=== PATIENT | male | born 1970 | race African-American/Black ===

== ENCOUNTER 2016-11-05 07:34 | Day surgery (SDC) | payer OTHER ==
[~2016-11-05] VITALS: Ht 188 cm; Wt 100.0 kg
[2016-11-05] VITALS (14 sets, daily range): BP systolic 114–133; BP diastolic 72–98; PULSE 59–75; TEMP 36.6; O2SAT 94–100; Ht 188 cm; Wt 100.0 kg
--- NOTE | 2016-11-05 00:08 | History and Physical ---
History & Physical Date Nov 05, 2016. Chief Complaint Poorly controlled asthma History of Present Illness The patient is a 46 year old male with complaints of Past Medical/Surgical History Patient is a 46-year-old male with poorly controlled asthma. He has been having repeat exacerbations almost every month requiring chronic high doses of steroids. At the time of my interview the patient noted continued nighttime awakenings with cough but denies fever, chills, productive sputum or pleurisy. Additional History Hepatic Disease: No Endocrine Disorder: No Kidney Disease: No Hypertension: No Heart Disease: No Bleeding Tendencies: No Infectious Diseases: No Physical Examination Skin: warm/dry, no rash Eyes: normal inspection, EOMI, sclerae normal ENT: normal ENT inspection, pharynx normal Head: normocephalic, atraumatic Neck: supple, no adenopathy, trachea midline Respiratory/Chest: lungs clear, normal breath sounds, no respiratory distress Cardiovascular: regular rate, rhythm, no edema, no murmur Abdomen / GI: normal bowel sounds, non tender Back: normal inspection Extremities: normal inspection, normal range of motion Neurologic/Psych: no motor/sensory deficits, alert, normal reflexes, oriented x 3 ASA Classification: ASA Class II Plan of Treatment Flexible bronchoscopy for evaluation prior to bronchial thermoplasty and bronchial lavage for rule out any chronic atypical infections.
[2016-11-05] MEDS ORDERED: LIDOCAINE HCL 2% LOCAL 50ML VIAL INFIL ONE (07:35)
[2016-11-05] MEDS ORDERED: MIDAZOLAM HCL 5 MG/ML 1 ML VIAL IV ONE ×2 (07:35→10:15)
[2016-11-05] MEDS ORDERED: LIDOCAINE 4% INH SOLN 4 ML BTL ONE (07:35)
[2016-11-05] MEDS ORDERED: FENTANYL CITRATE INJ 50 MCG/1 ML 2 ML VIAL IV ONE ×2 (07:35→10:15)
[2016-11-05] MEDS ORDERED: MONT1TAB3 PO (08:32)
[2016-11-05] MEDS ORDERED: CICL160A INH (08:32)
[2016-11-05] MEDS ORDERED: [UNRECOGNIZED DRUG - CODE] PO (08:32)
[2016-11-05] MEDS ORDERED: DOXY100C76 PO (08:32)
[2016-11-05] MEDS ORDERED: PRED20TA PO (08:32)
[2016-11-05] MEDS ORDERED: ADVIN50/60 INH (08:32)
[2016-11-05] MEDS ORDERED: SPRIN/30 INH (08:32)
[2016-11-05] MEDS ORDERED: CALC500C3 PO (08:32)
[2016-11-05] MEDS ORDERED: ALEN70TA3 PO (08:32)
[2016-11-05] MEDS ORDERED: PANT40TA PO (08:32)
[2016-11-05] MEDS ORDERED: FLUT0.15 INH (08:32)
[2016-11-05] MEDS ORDERED: VNTHFA/IN INH (08:32)
[2016-11-05] MEDS ORDERED: CARB200T PO (08:32)
--- NOTE | 2016-11-05 08:52 | Procedure Note ---
Pre-Mod Sedation Assessment General Date of Moderate Sedation: Nov 05, 2016. Vital Signs: Vital Signs Past 12 Hours Date Time Temp Pulse Resp B/P Pulse Ox O2 Delivery O2 Flow Rate FiO2 11/05/16 08:33 36.6 71 20 116/72 95 Room Air Review Cardiovascular: regular rate, rhythm, no edema, no gallop, no JVD, no murmur, normal peripheral pulses Abdomen: normal bowel sounds, non tender, soft, no organomegaly, no pulsatile mass, normal rectal exam, occult blood negative Lungs: chest non-tender, no respiratory distress, no accessory muscle use, + wheezing Airway Class: II Pre-Sedation Airway Assessment Oral Cavity: WNL Able to Visualize Vocal Cords: Yes Short Thick Neck: No Smoking Status: Never Smoker Mallampati Classification: Class II ASA Classification: Class II Procedure Planning Contraindications-for Mod Sed: None Yes Notes The planned sedation has been discussed with the patient and consent obtained. I have identified the patient, determined the appropriateness of sedation and have assessed the patient immediately prior to the procedure. All medicine(s) and interventions are by my order.
--- NOTE | 2016-11-05 08:52 | History & Physical Bridge Note ---
H&P Re-Evaluation Bridge Note: I have examined the patient, reviewed the History & Physical and in the interval since the performance of the History & Physical I have noted the following changes of clinical significance: No changes noted
[2016-11-05] MEDS ORDERED: NURSING VERBAL MED ORDER ONE ×2 (09:00→10:00)
[2016-11-05] MEDS ORDERED: DEXTROSE 5% 1000ML 1,000 ML IV SCH (09:30)
--- NOTE | 2016-11-05 09:47 | Procedure Note ---
Post-Moderate Sedation Plan General Date of Moderate Sedation Nov 05, 2016. Vital Signs: Vital Signs Past 12 Hours Date Time Temp Pulse Resp B/P Pulse Ox O2 Delivery O2 Flow Rate FiO2 11/05/16 09:25 73 16 123/98 100 Mask 8.0 11/05/16 09:20 61 16 126/92 100 Mask 8.0 11/05/16 09:15 60 16 122/93 100 Mask 8.0 11/05/16 09:10 59 16 127/90 100 Mask 8.0 11/05/16 09:05 60 16 124/83 100 Room Air 11/05/16 08:33 36.6 71 20 116/72 95 Room Air Review - Discharge Plan Post Moderate Sedation Plan: On clinical assessment, the patient appears to have tolerated the conscious sedation without complications. Patient is recovering as anticipated. Patient will continue to be monitored by nursing and may be discharged when conscious sedation discharge criteria are met.
--- NOTE | 2016-11-05 09:52 | Bronchoscopy Procedure Note ---
Bronchoscopy Procedure Note Procedure: Bronchoscopy, conscious sedation, bronchial lavage of the left upper lobe Consent: Obtained through the patient placed into the chart Preprocedural diagnosis: Poorly controlled asthma Postprocedural diagnosis: Poorly controlled asthma, chronic rhinitis, left vocal cord polyp Start time: 04 13 End time: 04 17 Total time: 4 minutes Analgesia: 2% liquid lidocaine: Via nebulizer 4% gel lidocaine: Via right naris 2% liquid lidocaine: Via bronchoscopy Sedation: Versed IV: 3 mg Fentanyl IV: 75 g Procedure: The Olympus video bronchoscope was used for this procedure Right naris/posterior naris/posterior oropharynx: Diffuse erythema with associated diffuse mucous secretions Glottis: Anatomically within normal limits Vocal cords: Proper abduction and abduction, left vocal cord anterior vocal cord polyp Subglottis/trachea/Emily: Anatomically within normal limits, diffuse mucous secretions Right bronchial tree: Right mainstem bronchus: Anatomically within normal limits Right upper lobe: Anatomically within normal limits Bronchus intermedius: Anatomically within normal limits Right middle lobe: Anatomically within normal limits Right lower lobe: 100% obstruction of the takeoff to the right lower lobe with diffuse mucous secretions Findings: All lobes had mucous secretions right lower lobe obstructed all subsegments clear of secretions Left bronchial tree: Left mainstem bronchus: Anatomically within normal limits Left upper lobe: Easy friability with minimal bronchoscopic trauma, also notable reactive cough to bronchoscopic irritation Lingula: Anatomically within normal limits Left lower lobe: Obstructed with mucous secretions Findings: Diffuse mucus secretions in all subsegments with obstruction of the left lower lobe all subsegments clear Bronchial alveolar lavage: 80 cc lavage performed of the left upper lobe with 35 cc return Complications: None Follow-up: Patient is to follow-up in the [place] [facility]. Patient will be sent off for ENT evaluation as well.
--- NOTE | 2016-11-05 09:56 | Discharge Instructions ---
Discharge Instructions Date of Service Nov 05, 2016. Admission Reason for Admission: Poorly controlled Asthma Discharge Discharge Diagnosis / Problem: #1 vocal cord polyp #2 chronic rhinitis #3 left upper lobe erythema Discharge Goals Goal(s): Diagnostic testing Activity Recommendations Activity Limitations: resume your previous activity . Instructions / Follow-Up Instructions / Follow-Up #1 follow-up in the [place] [facility] clinic within next 7-10 days, then repeat visit in the next 6-7 weeks #2 ENT consultation for vocal cord polyp and signs of chronic rhinitis Current Hospital Diet Patient's current hospital diet: Discharge Diet Recommended Diet: Regular Diet Procedures Procedures Performed: Bronchoscopy, bronchial lavage of the left upper lobe, conscious sedation Pending Studies Studies pending at discharge: yes List of pending studies: Fungal, mycobacterial studies pending Medical Emergencies . Who to Call and When: Medical Emergencies: If at any time you feel your situation is an emergency, please call 911 immediately. . Non-Emergent Contact Non-Emergency issues call your: Laundry Operator Wash Room Call Non-Emergent contact if: temperature is above 101.5 Worsening respiratory distress . . "Provider Documentation" section prepared by Nehemias Fitzpatrick. VTE Core Measure Inpt VTE Proph given/why not?: Treatment not indicated
[2016-12-01 12:18] LABS: HERPES SIMPLEX CULT SOURCE OTHER-BAL LUL; HERPES SIMPLEX VIRUS CULT NOT ISOLATED (NOT ISOLATED)
[2017-02-08] MEDS ORDERED: IPRASOL4 INH (14:53)
[2017-02-08] MEDS ORDERED: [UNRECOGNIZED DRUG - CODE] PO (14:53)
[2017-02-08] MEDS ORDERED: INSHRIE (14:53)
[2017-04-04] MEDS ORDERED: FSM70 PO (15:35)
[2017-04-04] MEDS ORDERED: BISM262S7 PO (15:35)
[2017-04-04] MEDS ORDERED: PRED10TA PO (15:35)
[2017-04-04] MEDS ORDERED: CICL160A INH (15:35)
[2017-04-04] MEDS ORDERED: PANT40TA PO (15:35)
[2017-04-04] MEDS ORDERED: MONT1TAB3 PO (15:35)
== END 2016-11-05 11:35 | disposition home or self-care (01) ==
LOC: C.ACU 07:34
PROVIDERS: ATTEND Internal Medicine Critical Care Medicine
DX: J45.909 Unspecified asthma, uncomplicated (principal); J31.0 Chronic rhinitis; J38.1 Polyp of vocal cord and larynx

== ENCOUNTER 2017-02-21 09:12 | Day surgery (SDC) | payer OTHER ==
[2017-02-08 16:02] VITALS: BMI 28.0
[~2017-02-21] VITALS: Ht 188 cm; Wt 100.5 kg
[2017-02-21] VITALS (7 sets, daily range): BP systolic 97–158; BP diastolic 68–89; PULSE 70–100; TEMP 36.4–36.8; O2SAT 91–100; Ht 188 cm; Wt 100.5 kg
[~2017-02-21 09:12] MED LIST: ADVIN50/60 INH; ALEN70TA3 PO; CALC500C3 PO; CARB200T PO; CICL160A INH; FLUT0.15 INH; INSHRIE; IPRASOL4 INH; LACTATED RINGER'S 1000ML 1,000 ML IV SCH; MONT1TAB3 PO; PRED20TA PO; SPRIN/30 INH; TERB2.5T2 PO; VNTHFA/IN INH; [UNRECOGNIZED DRUG - CODE] PO
[2017-02-21] MEDS ORDERED: PRED50TA PO (09:47)
[2017-02-21] MEDS ORDERED: DIPH25CA65 PO (09:49)
[2017-02-21] MEDS ORDERED: DEXAMETHASONE SOD INJ 4 MG/ML VIAL ONE (10:30)
[2017-02-21] MEDS ORDERED: CARBAMAZEPINE 200 MG TAB PO ONE (10:30)
[2017-02-21] MEDS ORDERED: ONDANSETRON INJ 2 MG/ML 2 ML VIAL ONE (10:30)
[2017-02-21] MEDS ORDERED: MIDAZOLAM HCL 1 MG/ML 2ML VIAL ONE (10:30)
[2017-02-21] MEDS ORDERED: ROCURONIUM BROMIDE 10 MG/ML 5 ML VIAL ONE (10:30)
[2017-02-21] MEDS ORDERED: PROPOFOL IV EMULSION 10 MG/ML 20 ML VIAL IV ONE ×2 (10:30→11:36)
[2017-02-21] MEDS ORDERED: NEOSTIGMINE METHYLSULFATE 5 MG/5 ML SYR ONE (10:30)
[2017-02-21] MEDS ORDERED: LIDOCAINE HCL 2% 2 ML VIAL (20MG/ML) ONE (10:30)
[2017-02-21] MEDS ORDERED: GLYCOPYRROLATE INJ 0.2 MG/ML VIAL ONE ×2 (10:30→12:31)
[2017-02-21] MEDS ORDERED: FENTANYL CITRATE INJ 50 MCG/1 ML 2 ML VIAL ONE (10:30)
[2017-02-21] MEDS ORDERED: ALBUTEROL 0.083% NEBU SOLN 3 ML VIAL INH STA (10:31)
[2017-02-21] MEDS ORDERED: FENTANYL CITRATE INJ 50 MCG/1 ML 2 ML VIAL IV PRN (10:45)
[2017-02-21] MEDS ORDERED: LABETALOL HCL IV 5 MG/ML 20ML IV PRN (10:45)
[2017-02-21] MEDS ORDERED: ONDANSETRON INJ 2 MG/ML 2 ML VIAL IV PRN (10:45)
[2017-02-21] MEDS ORDERED: ATROPINE SULFATE 0.1 MG/ML 5ML SYR IV PRN (10:45)
--- NOTE | 2017-02-21 11:14 | History and Physical ---
History & Physical Date Feb 21, 2017. Chief Complaint Chronic persistent asthma History of Present Illness The patient is a 46 year old male with complaints of chronic persistent asthma Patient is a 3-year-old gentleman with severe/chronic persistent asthma who over the last year is undergone an extensive workup: Bronchoscopy, ENT, allergy and radiographic examinations and requires high levels of corticosteroid support for multiple exacerbations. At this time myself the patient and decided to move forward with bronchial thermoplasty to help control his overall signs and symptoms. The patient has been on high-dose steroids of the last 3-4 weeks ranging anywhere from 50-70 mg. He currently continues to have active wheezing but denies dyspnea at rest, fever, chills, productive cough or other signs of active infection. The patient's previous baseline FEV1 is 2.48 and currently/ today his bedside FEV1 is 1.94 which is 78% of his baseline. The patient myself has undergone a full discussion of the bronchoscope thermoplasty protocol , procedure and possible side effects. At this time he would like to move forward. Additional History Hepatic Disease: No Endocrine Disorder: No Kidney Disease: No Hypertension: No Heart Disease: No Bleeding Tendencies: No Infectious Diseases: No Other: Chronic persistent asthma Allergies Coded Allergies: No Known Allergies (Unverified , 02/21/17) Home Medications Scheduled Alendronate/Cholecalciferol (Fosamax+D 70MG/5600 Iu), 1 TABLET PO WK Calcium Carbonate (Tums), 2 TABS PO BID Carbamazepine (Tegretol), 200 MG PO BID Ciclesonide (Alvesco), 1 PUFF INH BID Diphenhydramine Hcl (Benadryl Allergy), 50 CAP PO HS Fluticasone Prop/Salmeterol (Advair Diskus 500/50 60 Dose), 1 PUFFS INH BID Fluticasone Propionate (Nasal) (Flonase Allergy Relief), 2 SPRAY INH BID Insulin Human Regular (Humulin R), UD Ipratropium-Albuterol (Duoneb), 1 TREATMENT INH QID Prednisone (Prednisone), 70 MG PO DAILY Terbutaline Sulfate (Terbutaline Sulfate), 1 TAB PO BID Tiotropium [place] (Spiriva Handihaler), 1 CAP INH QPM Scheduled PRN Albuterol Hfa (Ventolin Hfa), 2 PUFFS INH QID PRN for WHEEZING Bismuth Subsalicylate (Bismatrol), 30 ML PO QID PRN for RN Montelukast Sodium (Singulair), 1 TAB PO DAILY PRN for PRN Physical Examination Skin: warm/dry, no rash Eyes: normal inspection, EOMI, sclerae normal ENT: normal ENT inspection, pharynx normal Head: normocephalic, atraumatic Neck: supple, no adenopathy, trachea midline Respiratory/Chest: + pertinent finding (bilateral expiratory wheezing) Cardiovascular: regular rate, rhythm, no edema, no murmur Abdomen / GI: normal bowel sounds, non tender Back: normal inspection Extremities: normal inspection, normal range of motion Neurologic/Psych: no motor/sensory deficits, alert, normal reflexes, oriented x 3 Diagnosis Chronic persistent asthma ASA Classification: ASA Class III Plan of Treatment Bronchoscopy with associated bronchial thermoplasty
[2017-02-21] MEDS ORDERED: EpHEDrine SULFATE 50MG/5ML SYR ONE (12:31)
--- NOTE | 2017-02-21 12:46 | Bronchoscopy Procedure Note ---
Bronchoscopy Procedure Note Procedure: Bronchoscopy, GETA, bronchus thermoplasty (BT) Consent: Obtained through the patient placed into the chart Pre-procedural diagnosis: Chronic persistent asthma Post-procedural diagnosis: Chronic persistent asthma Analgesia: 2% liquid lidocaine: Via bronchoscopy Sedation: GETA Procedure: The [employer] video bronchoscope was used for this procedure and passed down through the ET tube. ETT: 4 cm above the level of gagandeep Trachea(visualized portion)/Gagandeep: Anatomically within normal limits, diffuse mucous plugs Right bronchial tree: Right mainstem bronchus: Anatomically within normal limits Right upper lobe: Anatomically within normal limits Bronchus intermedius: Anatomically within normal limits Right middle lobe: Anatomically within normal limits Right lower lobe: Anatomically within normal limits Findings: Diffuse mucous plugs Left bronchial tree: Left mainstem bronchus: Anatomically within normal limits Left upper lobe: Anatomically within normal limits Lingula: Anatomically within normal limits Left lower lobe: Anatomically within normal limits Findings: Diffuse mucous plugs Bronchial alveolar lavage: Right lower lobe Bronchial thermoplasty: EBL: The Olympus bronchial thermoplasty system was used for this procedure Right middle lobe BT was performed. Approximately 43 thermoplasty events were performed Please refer to the BT anatomical report Complications: None Follow-up: Patient will move to the PACU for follow-up
[2017-02-21] MEDS ORDERED: LARYING-O-JET KIT (LTA) ONE ×2 (14:06)
--- NOTE | 2017-02-21 14:31 | Anesthesiology Progress Note ---
Anesthesia Post Op Note Date & Time Feb 21, 2017 at 14:31 Vital Signs Vital Signs Past 12 Hours Date Time Temp Pulse Resp B/P (MAP) Pulse Ox O2 Delivery O2 Flow Rate FiO2 02/21/17 14:00 100 20 128/82 100 Nasal Cannula 2 02/21/17 13:30 36.4 78 22 158/89 100 Nasal Cannula 2 02/21/17 13:25 36.6 72 17 118/85 97 Nasal Cannula 2 02/21/17 13:15 74 12 104/84 97 Oxymask 2 02/21/17 13:05 76 14 122/83 98 Oxymask 6 02/21/17 12:55 79 14 117/85 98 Oxymask 10 02/21/17 12:46 36.3 79 16 137/89 100 Oxymask 13 02/21/17 09:30 36.6 75 20 139/70 (93) 91 Room Air Notes Mental Status: alert / awake / arousable, participated in evaluation Pt Amnestic to Procedure: Yes Nausea / Vomiting: adequately controlled Pain: adequately controlled Airway Patency, RR, SpO2: stable & adequate BP & HR: stable & adequate Hydration State: stable & adequate Anesthetic Complications: no major complications apparent
[2017-02-21] MEDS ORDERED: LEVALBUTEROL/IPRATROPIUM NEB INH STA (15:49)
[2017-02-21] MEDS ORDERED: IPRATROPIUM BROMIDE NEB SOLN 0.02% 2.5 ML VIAL INH ONE (16:00)
[2017-02-21] MEDS ORDERED: LEVALBUTEROL 1.25MG/0.5ML NEB INH ONE (16:00)
--- NOTE | 2017-02-21 17:00 | Discharge Instructions ---
Discharge Instructions Date of Service Feb 21, 2017. Admission Reason for Admission: Severe Persistent Asthma Discharge Discharge Diagnosis / Problem: chronic persistent asthma status post bronchial thermoplasty Discharge Goals Goal(s): Improve function Activity Recommendations Activity Limitations: resume your previous activity . Instructions / Follow-Up Instructions / Follow-Up The patient is to follow[facility]up at [facility] within 7-10 days after the procedure. The patient most likely will have fevers and chills as well as some mild pleurisy over the next 2-3 days. Medications #1 prednisone 50 mg 3 days then tapering dose of 5 mg every 4 days. #2 Tylenol 650 mg when necessary fever greater than 101 #3 ibuprofen 600 mg every 8 hours when necessary chest pain Current Hospital Diet Patient's current hospital diet: Discharge Diet Recommended Diet: Regular Diet Procedures Procedures Performed: Flexible Bronchoscopy, Right Lower Lobe Bronchial Lavage, Bronchial Thermoplasty Pending Studies Studies pending at discharge: no Medical Emergencies . Who to Call and When: Medical Emergencies: If at any time you feel your situation is an emergency, please call 911 immediately. . Non-Emergent Contact Non-Emergency issues call your: Set Painter Call Non-Emergent contact if: temperature is above 101.5 . . "Provider Documentation" section prepared by Nehemias Fitzpatrick. . Cook Apprentice Pastry Recommendations Cook Apprentice Pastry Recommendations: Patient should be monitored in the [facility] for the next 48 hours VTE Core Measure Inpt VTE Proph given/why not?: Treatment not indicated
[2017-03-20 15:07] LABS: HERPES SIMPLEX CULT SOURCE OTHER-BAL; HERPES SIMPLEX VIRUS CULT NOT ISOLATED (NOT ISOLATED)
[2017-04-04] MEDS ORDERED: MONT1TAB3 PO (15:35)
[2017-04-04] MEDS ORDERED: CICL160A INH (15:35)
[2017-04-04] MEDS ORDERED: PRED10TA PO (15:35)
[2017-04-04] MEDS ORDERED: BISM262S7 PO (15:35)
[2017-04-04] MEDS ORDERED: PANT40TA PO (15:35)
[2017-04-04] MEDS ORDERED: FSM70 PO (15:35)
== END 2017-02-21 17:11 | disposition home or self-care (01) ==
LOC: C.ACU 09:12
PROVIDERS: ATTEND Internal Medicine Critical Care Medicine
DX: J45.50 Severe persistent asthma, uncomplicated (principal); M06.9 Rheumatoid arthritis, unspecified; K21.9 Gastro-esophageal reflux disease without esophagitis; Z90.89 Acquired absence of other organs; M19.90 Unspecified osteoarthritis, unspecified site; E11.9 Type 2 diabetes mellitus without complications; Z79.4 Long term (current) use of insulin; R56.9 Unspecified convulsions

== ENCOUNTER 2017-03-22 10:16 | Observation (INO) | payer OTHER ==
[2017-02-18 11:22] VITALS: BMI 28.0
[~2017-03-22] VITALS: Ht 188 cm; Wt 96.0 kg
[2017-03-22] VITALS (14 sets, daily range): BP systolic 101–145; BP diastolic 70–78; PULSE 78–116; TEMP 36.5–36.9; O2SAT 87–97; Ht 188 cm; Wt 96.0 kg
[~2017-03-22 10:16] MED LIST changes: +DEXAMETHASONE SOD INJ 4 MG/ML VIAL ONE; +DIPH25CA65 PO; +FENTANYL CITRATE INJ 50 MCG/1 ML 2 ML VIAL ONE; +LIDOCAINE HCL 2% 2 ML VIAL (20MG/ML) ONE; +MIDAZOLAM HCL 1 MG/ML 2ML VIAL ONE; +ONDANSETRON INJ 2 MG/ML 2 ML VIAL ONE; -PRED20TA PO; +PRED50TA PO; +PROPOFOL IV EMULSION 10 MG/ML 20 ML VIAL IV ONE; +ROCURONIUM BROMIDE 10 MG/ML 5 ML VIAL IV ONE
--- NOTE | 2017-03-22 11:00 | History and Physical ---
History & Physical Date Mar 22, 2017. Chief Complaint Chronic persistent asthma History of Present Illness The patient is a 46 year old male with complaints of chronic persistent asthma 46-year-old gentleman with moderately to severely persistent asthma: Patient has a history of moderately to severely persistent asthma on chronic oral steroids. We initiated bronchial thyroplasty therapy 1st bronchoscopy was performed 02/20/2017. The patient had 2-3 days of postoperative fever chills increase cough but currently has returned to his baseline. At this time he denies: Fever, chills, productive cough, pleurisy or classic cardiac chest pain. Patient is back today for the 2nd part of 3 procedures involving bronchial thyroplasty to the left lower lobe. Bronchial Thermo-Plasty to the right lower lobe (02/21/17) Microbiology: Within normal limits Bronchoscopy (11/05/16) [facility] Physician: Shayy Espinla [phone] Active Problems 1. Asthma (moderately to severely persistent) 3. Chronic cough 4. Chronic rhinitis 5. Vocal cord polyp 6. Osteoporosis 7. Seizure disorder Surgical History 1. History of Knee Surgery Family History 1. Family history of lung cancer Social History Never smoker Current Meds 1. CurrentMeds_2_twCiteListControlStart Advair Diskus 500-50 MCG/DOSE Inhalation Aerosol Powder Breath Activated; INHALE 1PUFF DAILY 2. Albuterol Sulfate (2.5 MG/3ML) 0.083% Inhalation Nebulization Solution; 3. [place] Nasal Mist Allergy/Sinus SOLN; 4. Benadryl Allergy 25 MG Oral Tablet; TAKE 50 MG Daily 5. Brethine 2.5 MG TABS 6. Ceftriaxone Sodium 1 GM Injection Solution Reconstituted; USE DIRECTED; 7. Flonase Allergy Relief 50 MCG/ACT Nasal Suspension; USE 2 SPRAYS IN EACH NOSTRIL ONCE DAILY 8. Fosamax 70 MG Oral Tablet; TAKE 1 TABLET ONCE WEEKLY; 9. Lubriderm LOTN 10. Montelukast Sodium 10 MG Oral Tablet; TAKE 1 TABLET DAILY; 11. Mytab Gas 80 MG Oral Tablet Chewable; 12. Pantoprazole Sodium 40 MG Oral Tablet Delayed Release; 13. PredniSONE 50 MG Oral Tablet 14. Spiriva HandiHaler 18 MCG Inhalation Capsule; INHALE CONTENTS OF 1 CAPSULE ONCE DAILy 15. TEGretol 200 MG Oral Tablet; 16. Tylenol 325 MG Oral Tablet; TAKE 1 TO 2 TABLETS EVERY 6 HOURS NEEDED; 17. Ventolin HFA 108 (90 Base) MCG/ACT Inhalation Aerosol Solution; INHALE 1- 2 PUFFS Allergies 1. No Known Drug Allergies Additional History Hepatic Disease: No Endocrine Disorder: No Kidney Disease: No Hypertension: No Heart Disease: No Bleeding Tendencies: No Infectious Diseases: No Allergies Coded Allergies: No Known Allergies (Unverified , 03/22/17) Home Medications Scheduled Calcium Carbonate (Tums), 2 TABS PO BID Carbamazepine (Tegretol), 200 MG PO BID Fluticasone Prop/Salmeterol (Advair Diskus 500/50 60 Dose), 1 PUFFS INH BID Fluticasone Propionate (Nasal) (Flonase Allergy Relief), 2 SPRAY INH BID Insulin Human Regular (Humulin R), UD Ipratropium-Albuterol (Duoneb), 1 TREATMENT INH QID Prednisone (Prednisone), 70 MG PO DAILY Terbutaline Sulfate (Terbutaline Sulfate), 1 TAB PO BID Tiotropium [place] (Spiriva Handihaler), 1 CAP INH QPM Scheduled PRN Albuterol Hfa (Ventolin Hfa), 2 PUFFS INH QID PRN for WHEEZING Montelukast Sodium (Singulair), 1 TAB PO DAILY PRN for PRN Physical Examination Skin: warm/dry, no rash Eyes: normal inspection, EOMI, sclerae normal ENT: normal ENT inspection, pharynx normal Head: normocephalic, atraumatic Neck: supple, no adenopathy, trachea midline Respiratory/Chest: + pertinent finding (bilateral laboratory wheezing) Cardiovascular: regular rate, rhythm, no edema, no murmur Abdomen / GI: normal bowel sounds, non tender Back: normal inspection Extremities: normal inspection, normal range of motion Neurologic/Psych: no motor/sensory deficits, alert, normal reflexes, oriented x 3 Diagnosis Chronic persistent asthma Plan of Treatment Patient here for flexible bronchoscopy with bronchial thermoplasty to the left lower lobe
[2017-03-22] MEDS ORDERED: CISATRACURIUM BESYLATE IV SOLN 2 MG/ML 10 ML VIAL ONE (12:13)
[2017-03-22] MEDS ORDERED: PROPOFOL IV EMULSION 10 MG/ML 20 ML VIAL IV ONE (12:13)
[2017-03-22] MEDS ORDERED: FENTANYL CITRATE INJ 50 MCG/1 ML 2 ML VIAL ONE (12:25)
--- NOTE | 2017-03-22 12:48 | Bronchoscopy Procedure Note ---
Bronchoscopy Procedure Note Procedure: Bronchoscopy, GETA, bronchus thermoplasty (BT), bronchial lavage right lower lobe Consent: Obtained through the patient placed into the chart Pre-procedural diagnosis: Chronic persistent asthma Post-procedural diagnosis: Chronic persistent asthma Sedation: GETA Procedure: The Olympus video bronchoscope was used for this procedure and passed down through the ET tube. ETT: 2 cm above the level of gagandeep Trachea(visualized portion)/Gagandeep: Anatomically within normal limits, diffuse mucous plugs Right bronchial tree: Right mainstem bronchus: Anatomically within normal limits Right upper lobe: Anatomically within normal limits Bronchus intermedius: Anatomically within normal limits Right middle lobe: Anatomically within normal limits Right lower lobe: Anatomically within normal limits Findings: Diffuse mucous plugs Left bronchial tree: Left mainstem bronchus: Anatomically within normal limits Left upper lobe: Anatomically within normal limits Lingula: Anatomically within normal limits Left lower lobe: Anatomically within normal limits Findings: Diffuse mucous plugs Bronchial alveolar lavage: Right lower lobe Bronchial thermoplasty # of excitations: LB10: 14 LB9: 10 LB 7+8: 8-8 LB6: 16 EBL: None Complications: None Follow-up: Patient will move to the PACU for follow-up
[2017-03-22] MEDS ORDERED: ATROPINE SULFATE 0.1 MG/ML 5ML SYR IV PRN (13:30)
[2017-03-22] MEDS ORDERED: EpHEDrine SULFATE INJ 50 MG/ML AMP IV PRN (13:30)
--- NOTE | 2017-03-22 14:01 | Anesthesiology Progress Note ---
Anesthesia Post Op Note Date & Time Mar 22, 2017 at 14:01 Vital Signs Pain Intensity: 0 Vital Signs Past 12 Hours Date Time Temp Pulse Resp B/P (MAP) Pulse Ox O2 Delivery O2 Flow Rate FiO2 03/22/17 13:40 36.2 87 16 111/81 95 Room Air 03/22/17 13:30 84 18 121/85 96 Room Air 03/22/17 13:20 82 12 126/90 100 Oxymask 10 03/22/17 13:10 86 16 125/94 99 Oxymask 10 03/22/17 13:00 36.0 90 16 129/91 97 Oxymask 10 03/22/17 10:33 36.5 18 145/74 (97) 97 Room Air Notes Mental Status: alert / awake / arousable, participated in evaluation Pt Amnestic to Procedure: Yes Nausea / Vomiting: adequately controlled Pain: adequately controlled Airway Patency, RR, SpO2: stable & adequate BP & HR: stable & adequate Hydration State: stable & adequate Anesthetic Complications: no major complications apparent
[2017-03-22] MEDS ORDERED: NURSING VERBAL MED ORDER ONE (14:30)
[2017-03-22] MEDS ORDERED: ALBUTEROL 0.083% NEBU SOLN 3 ML VIAL INH ONE (14:45)
--- NOTE | 2017-03-22 15:25 | [facility] Post Operative Brief Note ---
Immediate Operative Summary Operative Date Mar 22, 2017. Pre-Operative Diagnosis Severe, Persistent Asthma Post-Operative Diagnosis Severe, Persistent Asthma Procedure(s) Performed Flexible Brochoscopy; Bronchial Aveolar Lavage; Bronchial Thermoplasty Surgeon Nanette Header Boss Surgeon(s) Araceli Mendenhall PA-C and Respiratory staff Estimated Blood Loss 0cc Findings No acute findings noted Specimens A: BAL Complication(s) Postprocedural FEV1 1.44 which is only 71% of preprocedural FEV1 at 2.02. To be discharge criteria patient needs to be 80% or greater pre-procedural FEV1. Due to this the patient will require admission and monitoring at least for the next 24 possibly 48 hours.
[2017-03-22] MEDS ORDERED: ONDANSETRON INJ 2 MG/ML 2 ML VIAL IV PRN (16:00)
[2017-03-22] MEDS ORDERED: MONTELUKAST SOD 10 MG TAB PO PRN (16:00)
[2017-03-22] MEDS ORDERED: ALBUTEROL HFA 8 GM INHALER INH PRN (16:00)
[2017-03-22] MEDS ORDERED: ALUMINUM/MAGNESIUM/SIMETH (MAALOX MAX) 30 ML UDC PO PRN (16:00)
[2017-03-22] MEDS ORDERED: POLYETHYLENE (MIRALAX) 17 GM PACK PO PRN (16:00)
[2017-03-22] MEDS ORDERED: MAGNESIUM HYDROXIDE SUSP 30 ML UDC PO PRN (16:00)
[2017-03-22] MEDS ORDERED: ACETAMINOPHEN 325 MG TAB PO PRN (16:00)
--- NOTE | 2017-03-22 17:10 | Pulmonology Progress Note ---
Pulmonary Progress Note Date of Service Mar 22, 2017. Attending Dr. Fitzpatrick Subjective Patient notably having some mild chest discomfort and increased work of breathing Objective Patient mildly tachypnea but able to complete full sentences showing no signs of any respiratory insufficiency Vital signs: Currently stable nasal cannula Respiratory: Moderate expiratory wheezing with some rhonchi appreciated in the lower lobes Cardiac: S1 and S2 distant heart sounds but regular rate and rhythm Abdomen: Soft nontender Assessment & Plan 46-year-old male status post bronchial thermoplasty with mild asthma exacerbation: #1 Asthma: Patient has a long history of chronic persistent/severe asthma on high doses of oral prednisone. Earlier today he underwent bronchoscopy 2 over total of 3 for bronchoscopy thermoplasty were we ablated the left lower lobe. Postoperatively he was noted to have an FEV1 of 1.4 for which was only 71% of his preprocedural FEV1. As the patient was feeling ill and he did not meet the standard 80% or greater postprocedural FEV1 spirometry I've decided to admit him overnight with to help with the hospitalist team for evaluation. If the patient is doing well on the morning and he does meet his post spirometry goal of greater then or equal to 80% of pre-procedural levels the patient can most likely be discharged. At this time we'll obtain postprocedural chest x-ray for further evaluation. Data Medications: Current Inpatient Medications Medications (Trade) Dose Ordered Sig/Elza Route Start Time Stop Time Status Last Admin Dose Admin Lactated Ringer's 1,000 ml @ 15 mls/hr Q24H IV 03/22/17 06:00 03/23/17 05:59 Ephedrine Sulfate (EpHEDrine SULFATE INJ) 5 mg Q5M PRN IV 03/22/17 13:30 03/22/17 18:30 Atropine Sulfate (Atropine Sulfate 0.1MG/Ml Inj) 0.5 mg Q1M PRN IV 03/22/17 13:30 03/22/17 18:30 Enoxaparin Sodium (Lovenox Inj) 40 mg Q24H SQ 03/22/17 16:00 04/21/17 15:59 UNV Acetaminophen (Tylenol Tab) 650 mg Q4H PRN PO 03/22/17 16:00 04/21/17 15:59 UNV Al Hydrox/Mg Hydrox/Simethicone (Maalox Max Susp) 15 ml Q4H PRN PO 03/22/17 16:00 04/21/17 15:59 UNV Magnesium Hydroxide (Milk Of Magnesia Susp) 30 ml Q6H PRN PO 03/22/17 16:00 04/21/17 15:59 UNV Polyethylene (Miralax Powder Packet) 17 gm DAILY PRN PO 03/22/17 16:00 04/21/17 15:59 UNV Ondansetron HCl (Zofran Inj) 4 mg Q6H PRN IV 03/22/17 16:00 04/21/17 15:59 UNV Albuterol (Ventolin Hfa Inhaler) 2 puffs QID PRN INH 03/22/17 16:00 04/21/17 15:59 UNV Calcium Carbonate (Tums Chew Tab) 1,000 mg BID PO 03/22/17 21:00 04/21/17 20:59 UNV Carbamazepine (Tegretol Tab) 200 mg BID PO 03/22/17 21:00 04/21/17 20:59 UNV Salmeterol Xinafoate/ Fluticasone (Advair Diskus 500/50 Inh) 1 puff BID INH 03/22/17 21:00 04/21/17 20:59 UNV Fluticasone Propionate (Flonase Nasal [place]) 2 sprays BID NA 03/22/17 21:00 04/21/17 20:59 UNV Insulin Human Regular (novoLIN-R) ACHS SQ 03/22/17 16:00 04/21/17 15:59 UNV Albuterol/ Ipratropium (Duoneb) 3 ml QID INH 03/22/17 17:00 04/21/17 16:59 UNV Montelukast Sodium (Singulair Tab) 10 mg DAILY PRN PO 03/22/17 16:00 04/21/17 15:59 UNV Prednisone (PredniSONE TAB) 70 mg DAILY PO 03/23/17 09:00 04/22/17 08:59 UNV Tiotropium [place] (Spiriva Handihaler Inhaler) 30 puff QPM INH 03/22/17 21:00 04/21/17 20:59 UNV Non-Formulary Medication (Terbutaline Sulfate ) 1 tab BID PO 03/22/17 21:00 04/21/17 20:59 UNV I & O: 24-Hour Column 03/23/17 08:00 Intake Total 1450 ml Output Total 550 ml Balance 900 ml Vital Signs: Date Time Temp Pulse Resp B/P (MAP) Pulse Ox O2 Delivery O2 Flow Rate FiO2 03/22/17 14:51 90 20 101/77 94 Room Air 03/22/17 14:21 100 18 92 Room Air 03/22/17 14:20 92 20 120/78 93 Room Air 03/22/17 13:50 36.7 78 20 114/78 95 Room Air 03/22/17 13:40 36.2 87 16 111/81 95 Room Air 03/22/17 13:30 84 18 121/85 96 Room Air 03/22/17 13:20 82 12 126/90 100 Oxymask 10 03/22/17 13:10 86 16 125/94 99 Oxymask 10 03/22/17 13:00 36.0 90 16 129/91 97 Oxymask 10 03/22/17 10:33 36.5 18 145/74 (97) 97 Room Air Laboratory Results: Last 24 Hours Test 03/22/17 10:32 03/22/17 13:05 03/22/17 16:04 Bedside Glucose 94 mg/dl 123 mg/dl 169 mg/dl
[2017-03-22] MEDS ORDERED: GLUCOSE 40% GEL 15 GM TUBE PO PRN (17:45)
[2017-03-22] MEDS ORDERED: DEXTROSE 50% 50 ML SYR IV PRN (17:45)
[2017-03-22] MEDS ORDERED: GLUCOSE 10 TABS/TUBE PO PRN (17:45)
[2017-03-22] MEDS ORDERED: GLUCAGON FOR INJ 1 MG VIAL SQ PRN (17:45)
--- NOTE | 2017-03-22 17:47 | DIAGNOSTIC IMAGING REPORT ---
CHEST ONE VIEW PORTABLE CLINICAL HISTORY: 46 years-old Male presenting with evaluation of asthma exacerbation, status post bronchial thermoplasty. TECHNIQUE: Portable upright AP view of the chest was obtained. COMPARISON: None. FINDINGS: Cardiomediastinal silhouette normal. Bandlike opacities in the lung bases, right greater than left. No pleural effusion or pneumothorax. Osseous structures normal. Upper abdomen normal. IMPRESSION: 1. Bibasilar bandlike opacities likely atelectasis. Electronically signed by: Bryce Torres M.D. 03/22/2017 5:46 PM Dictated Date/Time: 03/22/2017 5:45 PM
[2017-03-22] MEDS ORDERED: IV FLUIDS COMPLETED PRN (18:00)
[2017-03-22] MEDS: INSULIN HUMAN REGULAR SQ SCH ×2 (18:34→21:32)
[2017-03-22 19:03] LABS: PROTHROMBIN TIME (PATIENT) 10.6 SECONDS (9.0-12.0)
--- NOTE | 2017-03-22 19:12 | History and Physical ---
History & Physical Date of Service Mar 22, 2017. History & Physical obs #[id number]
--- NOTE | 2017-03-22 19:26 | HISTORY & PHYSICAL EXAMINATION ---
DATE OF ADMISSION: 03/22/2017 CHIEF COMPLAINT: Wheezing and shortness of breath. HISTORY OF PRESENT ILLNESS: The patient is a very pleasant 46-year-old male who is status post bronchial thermoplasty. Unfortunately he did not meet criteria for discharge right afterwards, his FEV1 being too low and so Dr. Fitzpatrick called for us to assist in admitting and ongoing observation and management. He notes feeling tight in his chest and wheezy. He has a little bit of a cough, no fevers, chills, or sweats. He did note after his last bronchial thermoplasty he did have a degree of fever. REVIEW OF SYSTEMS: Otherwise negative, except for as above. PAST MEDICAL HISTORY: Moderate to severe persistent asthma, chronic cough, chronic rhinitis, vocal cord polyp, osteoporosis, and seizure disorder. HOME MEDICATIONS: Advair 500/50 one puff daily, albuterol p.r.n. shortness of breath or wheeze, Benadryl 25 mg to 50 mg daily, Brethine 2.5 mg I believe b.i.d. He has been on ceftriaxone, Flonase, Fosamax, Lubriderm, montelukast, Gas-X, Protonix, prednisone, Spiriva, Tegretol, Tylenol and Ventolin p.r.n. ALLERGIES: No known drug allergies. FAMILY HISTORY: Includes lung cancer. PAST SURGICAL HISTORY: Includes a knee surgery. SOCIAL HISTORY: He is currently incarcerated. He has never been a smoker. PHYSICAL EXAMINATION: VITAL SIGNS: Temperature 36.8, pulse 92, respiratory rate 18, blood pressure 120/72, 96% on room air. GENERAL: He is awake, alert, oriented x3, pleasant, in no acute distress. HEENT: Normocephalic, atraumatic. Mucous membranes are moist. CARDIOVASCULAR: Regular, slightly distant. No rubs, murmurs, or gallops. LUNGS: diffuse wheeze bilaterally. no rales, scattered rhonchi. no accessory muscle use and no tachypnea. ABDOMEN: Soft, nondistended, nontender, no masses or organomegaly. EXTREMITIES: Without cyanosis, clubbing or edema. No calf tenderness. SKIN: Shows no rashes, no pallor or icterus. NEUROLOGIC: Shows cranial nerves II-XII to be grossly intact. Gross motor and sensory are intact. Chest x-ray shows bibasilar band-like opacities, likely atelectasis. His PT is 10.6. His glucose is 145. ASSESSMENT AND PLAN: 1. Wheezing/asthma. He will be admitted. Dr. Fitzpatrick will be consulted for the appropriate management post-thermoplasty. Will also utilize DuoNebs q.i.d. and supportive care. 2. Seizure disorder. Continue his anticonvulsants. 3. Deep venous thrombosis prophylaxis, Lovenox. 4. Osteoporosis. Continue home meds as possible. ITZ
[2017-03-22] MEDS: ALBUT/IPRATROP 3MG/0.5MG NEB 3 ML VIAL INH SCH ×2 (19:37→20:00)
[2017-03-22] MEDS: TRAMADOL HCL 50 MG TAB PO PRN (20:52)
[2017-03-22] MEDS: FLUTICASONE/SALMETEROL (ADVAIR) 500/50 INH 14 PUFF INH SCH (20:58)
[2017-03-22] MEDS: FLUTICASONE PROPIONATE NA SPR 16 GM BTL SCH (20:58)
[2017-03-22] MEDS ORDERED: TIOTROPIUM BROMIDE 5 PUFF/90 MCG INH INH SCH (21:00)
[2017-03-22] MEDS: CALCIUM CARBONATE 500 MG CHEWABLE PO SCH (21:00)
[2017-03-22] MEDS: CARBAMAZEPINE 200 MG TAB PO SCH (21:00)
[2017-03-22] MEDS: TERBUTALINE SULFATE 5 MG TAB PO SCH (21:01)
[2017-03-22] MEDS: ENOXAPARIN 40 MG/0.4 ML SYR SQ SCH (21:27)
[2017-03-22] MEDS ORDERED: TIOTROPIUM BROMIDE 5 PUFF/90 MCG INH INH STA (21:28)
[2017-03-22] MEDS ORDERED: KETOROLAC TROMETHAMINE 15 MG/ML VIAL IV PRN (23:00)
[2017-03-23] VITALS (10 sets, daily range): BP systolic 117–130; BP diastolic 64–90; PULSE 80–93; TEMP 36.6–36.9; O2SAT 90–97
[2017-03-23] MEDS: TRAMADOL HCL 50 MG TAB PO PRN ×5 (01:20→23:42)
[2017-03-23] MEDS: ALBUT/IPRATROP 3MG/0.5MG NEB 3 ML VIAL INH SCH ×6 (01:29→20:01)
[2017-03-23] MEDS: CARBAMAZEPINE 200 MG TAB PO SCH ×2 (09:05→21:25)
[2017-03-23] MEDS: FLUTICASONE PROPIONATE NA SPR 16 GM BTL SCH ×2 (09:06→21:24)
[2017-03-23] MEDS: CALCIUM CARBONATE 500 MG CHEWABLE PO SCH ×2 (09:06→21:28)
[2017-03-23] MEDS: TERBUTALINE SULFATE 5 MG TAB PO SCH ×2 (09:06→21:24)
[2017-03-23] MEDS: FLUTICASONE/SALMETEROL (ADVAIR) 500/50 INH 14 PUFF INH SCH ×2 (09:06→21:19)
[2017-03-23] MEDS: INSULIN HUMAN REGULAR SQ SCH ×4 (09:16→21:18)
--- NOTE | 2017-03-23 10:44 | Pulmonology Progress Note ---
Pulmonary Progress Note Date of Service Mar 23, 2017. Attending Dr. Fitzpatrick Subjective Patient notes dramatic improvement in his respiratory status but continues to have some mild chest congestion. Objective The patient is sitting up in bed and moving around easily with no signs of respiratory insufficiency. He notes some mild chest congestion Vital signs: Stable on room air Respiratory: Mild End-expiratory wheezing Cardiac: S1 and S2 distant heart sounds but regular rate and rhythm Abdomen: Soft nontender preprocedural FEV1: 2.02 L Postprocedural FEV1: 1.44 L (71%) Today's FEV1: 1.62 L (80%) Assessment & Plan 46-year-old male status post bronchial thermoplasty with mild asthma exacerbation: #1 Bronchial Thermoplasty: Patient is doing well post bronchial thermoplasty today and is responded to the treatment last 24 hours. His FEV1 performed today at 1.62 L is 80% preprocedural numbers. The patient is responded well he can be discharged. The patient will return in 3 weeks for the final bronchial thermoplasty of bilateral upper lobes #2 Asthma: This time the patient continue on his current inhaler regimen but will also continue on prednisone 70 mg 1 week and then titrate down to 60 mg over than following week. The patient will then be seen in the pulmonary clinic and we'll discuss further titration most likely to 50 mg the following week. #3 Contact: The patient is to be transferred to the [facility]. I have spoken to the nurse Calista at the facility and informed her of the plan. [facility]: [phone] Intermediate Physician: Shayy Espinal [phone]. Data Medications: Current Inpatient Medications Medications (Trade) Dose Ordered Sig/Elza Route Start Time Stop Time Status Last Admin Dose Admin Enoxaparin Sodium (Lovenox Inj) 40 mg HS SQ 03/22/17 21:00 04/21/17 20:59 03/22/17 21:27 40 MG Acetaminophen (Tylenol Tab) 650 mg Q4H PRN PO 03/22/17 16:00 04/21/17 15:59 03/22/17 18:12 650 MG Al Hydrox/Mg Hydrox/Simethicone (Maalox Max Susp) 15 ml Q4H PRN PO 03/22/17 16:00 04/21/17 15:59 Magnesium Hydroxide (Milk Of Magnesia Susp) 30 ml Q6H PRN PO 03/22/17 16:00 04/21/17 15:59 Polyethylene (Miralax Powder Packet) 17 gm DAILY PRN PO 03/22/17 16:00 04/21/17 15:59 Ondansetron HCl (Zofran Inj) 4 mg Q6H PRN IV 03/22/17 16:00 04/21/17 15:59 Albuterol (Ventolin Hfa Inhaler) 2 puffs QID PRN INH 03/22/17 16:00 04/21/17 15:59 Calcium Carbonate (Tums Chew Tab) 1,000 mg BID PO 03/22/17 21:00 04/21/17 20:59 03/23/17 09:06 1,000 MG Carbamazepine (Tegretol Tab) 200 mg BID PO 03/22/17 21:00 04/21/17 20:59 03/23/17 09:05 200 MG Salmeterol Xinafoate/ Fluticasone (Advair Diskus 500/50 Inh) 1 puff BID INH 03/22/17 21:00 04/21/17 20:59 03/23/17 09:06 1 PUFF Fluticasone Propionate (Flonase Nasal [place]) 2 sprays BID NA 03/22/17 21:00 04/21/17 20:59 03/23/17 09:06 2 SPRAYS Insulin Human Regular (novoLIN-R) ACHS SQ 03/22/17 18:00 04/21/17 17:59 03/23/17 09:16 1 UNITS Montelukast Sodium (Singulair Tab) 10 mg PM PRN PO 03/22/17 16:00 04/21/17 15:59 Prednisone (PredniSONE TAB) 50 mg DAILY PO 03/23/17 09:00 04/22/17 08:59 03/23/17 09:07 50 MG Terbutaline Sulfate (Brethine Tab) 2.5 mg BID PO 03/22/17 21:00 04/21/17 20:59 03/23/17 09:06 2.5 MG Glucose (Glucose 40% Gel) 15-30 GRAMS 15 GRAMS... UD PRN PO 8/25/17 17:45 04/21/17 17:44 Glucose (Glucose Chew Tab) 4-8 Tablets 4 Tabl... UD PRN PO 03/22/17 17:45 04/21/17 17:44 Dextrose (Dextrose 50% 50ML Syringe) 25-50ML OF 50% DW IV FOR... UD PRN IV 03/22/17 17:45 04/21/17 17:44 Glucagon (Glucagon Inj) 1 mg UD PRN SQ 03/22/17 17:45 04/21/17 17:44 Miscellaneous (Iv Fluids Completed) 1 ea PRN PRN N/A 03/22/17 18:00 03/22/18 17:59 Tramadol HCl (Ultram Tab) 50 mg Q4H PRN PO 03/22/17 20:30 04/21/17 20:29 03/23/17 01:20 50 MG Tiotropium [place] (Spiriva Handihaler Inhaler) 1 puff QPM INH 03/23/17 21:00 04/21/17 20:59 Albuterol/ Ipratropium (Duoneb) 3 ml QIDR INH 03/23/17 08:00 04/22/17 07:59 03/23/17 07:40 3 ML Vital Signs: Date Time Temp Pulse Resp B/P (MAP) Pulse Ox O2 Delivery O2 Flow Rate FiO2 03/23/17 08:02 36.8 93 21 121/76 (91) 96 Room Air 03/23/17 08:00 Room Air 03/23/17 07:41 92 18 96 Room Air 03/23/17 05:16 83 18 92 Room Air 03/23/17 04:06 36.9 92 18 117/64 (81) 92 Room Air 03/23/17 01:30 89 18 90 Room Air 03/23/17 00:00 Room Air 03/22/17 23:23 36.9 98 17 111/70 (84) 94 Room Air 03/22/17 23:23 36.9 98 17 111/70 (84) 94 Room Air 03/22/17 19:52 36.8 108 18 111/75 (87) 87 Room Air 03/22/17 19:42 96 18 95 Room Air 03/22/17 18:48 36.8 89 20 121/77 (92) 93 Room Air 03/22/17 17:40 36.9 82 20 122/78 (93) 93 Room Air 03/22/17 17:15 Room Air 03/22/17 17:15 95 Room Air 03/22/17 17:05 36.8 79 20 114/78 (90) 95 Room Air 03/22/17 16:05 36.8 92 18 120/72 96 Room Air 03/22/17 14:51 90 20 101/77 94 Room Air 03/22/17 14:21 100 18 92 Room Air 03/22/17 14:20 92 20 120/78 93 Room Air 03/22/17 13:50 36.7 78 20 114/78 95 Room Air 03/22/17 13:40 36.2 87 16 111/81 95 Room Air 03/22/17 13:30 84 18 121/85 96 Room Air 03/22/17 13:20 82 12 126/90 100 Oxymask 10 03/22/17 13:10 86 16 125/94 99 Oxymask 10 03/22/17 13:00 36.0 90 16 129/91 97 Oxymask 10 03/22/17 10:33 36.5 18 145/74 (97) 97 Room Air Laboratory Results: Last 24 Hours Test 03/22/17 13:05 03/22/17 16:04 03/22/17 17:55 03/22/17 18:28 Bedside Glucose 123 mg/dl 169 mg/dl 145 mg/dl Prothrombin Time 10.6 SECONDS Prothromb Time International Ratio 1.0 Test 03/22/17 20:41 Bedside Glucose 80 mg/dl
[2017-03-23] MEDS ORDERED: TIOTROPIUM BROMIDE 5 PUFF/90 MCG INH INH SCH (21:00)
[2017-03-23] MEDS: ENOXAPARIN 40 MG/0.4 ML SYR SQ SCH (21:19)
[2017-03-24 00:02] VITALS: PULSE 85; O2SAT 91
--- NOTE | 2017-03-24 01:15 | Hospitalist Progress Note ---
Hospitalist Progress Note Date of Service Mar 24, 2017. Subjective patient with no complains still wheezing Objective Vital Signs Date Time Temp Pulse Resp B/P (MAP) Pulse Ox O2 Delivery O2 Flow Rate FiO2 03/24/17 00:02 85 18 91 Room Air 03/23/17 23:05 36.6 88 18 130/90 (103) 93 Room Air 03/23/17 20:02 80 18 93 Room Air 03/23/17 16:20 Room Air 03/23/17 15:16 87 18 95 Room Air 03/23/17 14:51 36.7 86 16 127/74 (91) 92 Room Air 03/23/17 11:31 90 18 97 Room Air 03/23/17 08:02 36.8 93 21 121/76 (91) 96 Room Air 03/23/17 08:00 Room Air 03/23/17 07:41 92 18 96 Room Air 03/23/17 05:16 83 18 92 Room Air 03/23/17 04:06 36.9 92 18 117/64 (81) 92 Room Air 03/23/17 01:30 89 18 90 Room Air Physical Exam General Appearance: no apparent distress Eyes: normal inspection ENT: hearing grossly normal Neck: supple Respiratory/Chest: chest non-tender, no respiratory distress Cardiovascular: regular rate, rhythm Abdomen: normal bowel sounds Extremities: non-tender Laboratory Results Last 24 Hours Test 03/23/17 09:04 03/23/17 12:37 03/23/17 20:49 Bedside Glucose 111 mg/dl 157 mg/dl 154 mg/dl Assessment and Plan 1. Wheezing/asthma. He will be admitted. Dr. Fitzpatrick consulted for the appropriate management post-thermoplasty. Will also utilize DuoNebs q.i.d. and supportive care. 2. Seizure disorder. Continue his anticonvulsants. 3. Deep venous thrombosis prophylaxis, Lovenox. 4. Osteoporosis. Continue home meds as possible Discharge planning: other
[2017-03-24] MEDS: ALBUT/IPRATROP 3MG/0.5MG NEB 3 ML VIAL INH SCH ×3 (04:57→11:30)
[2017-03-24 04:58] VITALS: PULSE 78; O2SAT 91
[2017-03-24 07:39] VITALS: PULSE 80; O2SAT 93
[2017-03-24] MEDS: FLUTICASONE PROPIONATE NA SPR 16 GM BTL SCH (09:07)
[2017-03-24] MEDS: FLUTICASONE/SALMETEROL (ADVAIR) 500/50 INH 14 PUFF INH SCH (09:07)
[2017-03-24] MEDS: TERBUTALINE SULFATE 5 MG TAB PO SCH (09:08)
[2017-03-24] MEDS: CARBAMAZEPINE 200 MG TAB PO SCH (09:08)
[2017-03-24] MEDS: INSULIN HUMAN REGULAR SQ SCH ×2 (09:19→12:47)
[2017-03-24] MEDS: TRAMADOL HCL 50 MG TAB PO PRN (09:20)
[2017-03-24] MEDS: CALCIUM CARBONATE 500 MG CHEWABLE PO SCH (09:58)
[2017-03-24] MEDS ORDERED: LEVO500T19 PO (11:01)
[2017-03-24] MEDS ORDERED: PRD50 PO (11:01)
[2017-03-24] MEDS ORDERED: INSPMPRG SQ (11:01)
--- NOTE | 2017-03-24 11:06 | Pulmonology Progress Note ---
Pulmonary Progress Note Date of Service Mar 24, 2017. Attending Dr. Fitzpatrick Subjective Patient notes continued dyspnea with exertion but also notes some mild yellow productive sputum over the last 24 hours. Objective The patient is sitting up in bed and moving around easily with no signs of respiratory insufficiency. He notes some mild chest congestion I/O: +895cc RR: 18 SaO2: 91-93% FiO2: RA HR: 78-85 RESP: Mild expiratory wheezing bilaterally CARD: S1-S2 regular rate and rhythm ABD: Positive bowel sounds soft nontender EXT: No clubbing cyanosis or edema Abdomen: Soft nontender preprocedural FEV1: 2.02 L Postprocedural FEV1: 1.44 L (71%) Today's FEV1: 1.62 L (80%) Assessment & Plan 46-year-old male status post bronchial thermoplasty with mild asthma exacerbation: #1 Bronchial Thermoplasty: Patient is doing well post bronchial thermoplasty today and is responded to the treatment last 24 hours. His FEV1 performed today at 1.62 L is 80% preprocedural numbers. The patient is responded well he can be discharged. The patient will return in 3 weeks for the final bronchial thermoplasty of bilateral upper lobes #2 Asthma: This time the patient continue on his current inhaler regimen but will also continue on prednisone 70 mg 1 week and then titrate down to 60 mg over than following week. The patient will then be seen in the pulmonary clinic and we'll discuss further titration most likely to 50 mg the following week. #3: ID: Patient is having some productive sputum last 24 hours but fevers via monitoring is noted. As post bronchial thermal inflammation/pneumonias are noted we'll start the patient on Levaquin 500 mg daily for 5 day window. I discussed this with Dr. Abdul the hospitalist physician. #3 Contact: The patient is to be transferred to the [facility]. I have spoken to the nurse Calista at the facility and informed her of the plan. [facility]: x [phone] Retirement Physician: Shayy Espinal [phone]. Data Medications: Current Inpatient Medications Medications (Trade) Dose Ordered Sig/Elza Route Start Time Stop Time Status Last Admin Dose Admin Enoxaparin Sodium (Lovenox Inj) 40 mg HS SQ 03/22/17 21:00 04/21/17 20:59 03/23/17 21:19 40 MG Acetaminophen (Tylenol Tab) 650 mg Q4H PRN PO 03/22/17 16:00 04/21/17 15:59 03/22/17 18:12 650 MG Al Hydrox/Mg Hydrox/Simethicone (Maalox Max Susp) 15 ml Q4H PRN PO 03/22/17 16:00 04/21/17 15:59 Magnesium Hydroxide (Milk Of Magnesia Susp) 30 ml Q6H PRN PO 03/22/17 16:00 04/21/17 15:59 Polyethylene (Miralax Powder Packet) 17 gm DAILY PRN PO 03/22/17 16:00 04/21/17 15:59 Ondansetron HCl (Zofran Inj) 4 mg Q6H PRN IV 03/22/17 16:00 04/21/17 15:59 Albuterol (Ventolin Hfa Inhaler) 2 puffs QID PRN INH 03/22/17 16:00 04/21/17 15:59 Calcium Carbonate (Tums Chew Tab) 1,000 mg BID PO 03/22/17 21:00 04/21/17 20:59 03/24/17 09:58 1,000 MG Carbamazepine (Tegretol Tab) 200 mg BID PO 03/22/17 21:00 04/21/17 20:59 03/24/17 09:08 200 MG Salmeterol Xinafoate/ Fluticasone (Advair Diskus 500/50 Inh) 1 puff BID INH 03/22/17 21:00 04/21/17 20:59 03/24/17 09:07 1 PUFF Fluticasone Propionate (Flonase Nasal [place]) 2 sprays BID NA 03/22/17 21:00 04/21/17 20:59 03/24/17 09:07 2 SPRAYS Insulin Human Regular (novoLIN-R) ACHS SQ 03/22/17 18:00 04/21/17 17:59 03/24/17 09:19 4 UNITS Montelukast Sodium (Singulair Tab) 10 mg PM PRN PO 03/22/17 16:00 04/21/17 15:59 Prednisone (PredniSONE TAB) 50 mg DAILY PO 03/23/17 09:00 04/22/17 08:59 03/24/17 09:08 50 MG Terbutaline Sulfate (Brethine Tab) 2.5 mg BID PO 03/22/17 21:00 04/21/17 20:59 03/24/17 09:08 2.5 MG Glucose (Glucose 40% Gel) 15-30 GRAMS 15 GRAMS... UD PRN PO 03/22/17 17:45 04/21/17 17:44 Glucose (Glucose Chew Tab) 4-8 Tablets 4 Tabl... UD PRN PO 03/22/17 17:45 04/21/17 17:44 Dextrose (Dextrose 50% 50ML Syringe) 25-50ML OF 50% DW IV FOR... UD PRN IV 03/22/17 17:45 04/21/17 17:44 Glucagon (Glucagon Inj) 1 mg UD PRN SQ 03/22/17 17:45 04/21/17 17:44 Miscellaneous (Iv Fluids Completed) 1 ea PRN PRN N/A 03/22/17 18:00 03/22/18 17:59 Tramadol HCl (Ultram Tab) 50 mg Q4H PRN PO 03/22/17 20:30 04/21/17 20:29 03/24/17 09:20 50 MG Tiotropium [place] (Spiriva Handihaler Inhaler) 1 puff QPM INH 03/23/17 21:00 04/21/17 20:59 03/23/17 21:20 1 PUFF Albuterol/ Ipratropium (Duoneb) 3 ml QIDR INH 03/23/17 08:00 04/22/17 07:59 03/24/17 07:38 3 ML Vital Signs: Date Time Temp Pulse Resp B/P (MAP) Pulse Ox O2 Delivery O2 Flow Rate FiO2 03/24/17 07:45 Room Air 03/24/17 07:39 80 18 93 Room Air 03/24/17 04:58 78 18 91 Room Air 03/24/17 00:02 85 18 91 Room Air 03/23/17 23:50 Room Air 03/23/17 23:05 36.6 88 18 130/90 (103) 93 Room Air 03/23/17 20:02 80 18 93 Room Air 03/23/17 16:20 Room Air 03/23/17 15:16 87 18 95 Room Air 03/23/17 14:51 36.7 86 16 127/74 (91) 92 Room Air 03/23/17 11:31 90 18 97 Room Air Laboratory Results: Last 24 Hours Test 03/23/17 12:37 03/23/17 20:49 03/24/17 08:22 Bedside Glucose 157 mg/dl 154 mg/dl 108 mg/dl
--- NOTE | 2017-03-24 11:11 | Discharge Instructions ---
Discharge Instructions Date of Service Mar 24, 2017. Admission Reason for Admission: Asthma Discharge Discharge Diagnosis / Problem: Asthma Discharge Goals Goal(s): Improve function Activity Recommendations Activity Limitations: resume your previous activity . Instructions / Follow-Up Instructions / Follow-Up As directed with Pulmonary Current Hospital Diet Patient's current hospital diet: Diabetes Type 2 Diet Discharge Diet Recommended Diet: Diabetes Type 1 Diet Procedures Procedures Performed: Flexible Brochoscopy; Bronchial Aveolar Lavage; Bronchial Thermoplasty Pending Studies Studies pending at discharge: no Medical Emergencies . Who to Call and When: Medical Emergencies: If at any time you feel your situation is an emergency, please call 911 immediately. . Non-Emergent Contact Non-Emergency issues call your: Primary Care Provider . Past History Medical & Surgical History: (1) Asthma . "Provider Documentation" section prepared by Deni Abdul. . VTE Core Measure Inpt VTE Proph given/why not?: Enoxaparin (Lovenox)SQ
[2017-03-24 11:16] VITALS: BP 130/90; TEMP 36.6; O2SAT 93
[2017-03-24 11:32] VITALS: PULSE 76; O2SAT 94
--- NOTE | 2017-03-24 21:46 | Discharge Summary ---
Discharge Summary Date of Service Mar 24, 2017. Discharge Summary Admission Date: Mar 22, 2017 at 10:45 Discharge Date: Mar 24, 2017 Discharge Disposition: Acute care facility (patient was discharged to [facility]) Principal Diagnosis: persistent asthma Problems/Secondary Diagnoses: Chronic persistent asthma Procedures: Thermoplasty Consultations: Dr. Fitzpatrick Medication Reconciliation New Medications: Levofloxacin (Levaquin) 500 Mg Tab 1 TAB PO DAILY for 5 Days, #5 TAB Prednisone (Prednisone) 50 Mg Tab 50 MG PO DAILY for 30 Days, #30 TAB Continued Medications: Albuterol Hfa (Ventolin Hfa) 200 Puffs/31585 Mcg Aers 2 PUFFS INH QID PRN for WHEEZING, #1 INHALER Calcium Carbonate (Tums) 500 Mg Chew 2 TABS PO BID Carbamazepine (Tegretol) 200 Mg Tab 200 MG PO BID, TAB Fluticasone Prop/Salmeterol (Advair Diskus 500/50 60 Dose) 1 Ea Aerp 1 PUFFS INH BID for 30 Days, #1 INHALER 5 Refills Fluticasone Propionate (Nasal) (Flonase Allergy Relief) 50 Mcg/Act Spr 2 SPRAY INH BID Insulin Human Regular (Humulin R) 100 Units/Ml Susp UD SLIDING SCALE UD Ipratropium-Albuterol (Duoneb) 3 Ml Nebu 1 TREATMENT INH QID, INHA Montelukast Sodium (Singulair) 10 Mg Tab 1 TAB PO DAILY PRN for PRN for 90 Days, #90 TAB 1 Refill Terbutaline Sulfate (Terbutaline Sulfate) 2.5 Mg Tab 1 TAB PO BID Tiotropium [place] (Spiriva Handihaler) 30 Puff/540 Mcg Aerp 1 CAP INH QPM for 30 Days, CAP 3 Refills Discontinued Medications: Prednisone (Prednisone) 50 Mg Tab 70 MG PO DAILY for 4 Days, #6 TAB Hospital Course 1. Wheezing/asthma. He will be admitted. Dr. Fitzpatrick consulted for the appropriate management post-thermoplasty. Will also utilize DuoNebs q.i.d. and supportive care. The patient underwent thermoplasty without complications by Dr. Fitzpatrick he was deemed stable for discharge on 2016 he had an otherwise unremarkable hospital stay 2. Seizure disorder. Continue his anticonvulsants. 3. Deep venous thrombosis prophylaxis, Lovenox. 4. Osteoporosis. Continue home meds as possible Total Time Spent: Greater than 30 minutes This includes examination of the patient, discharge planning, medication reconciliation, and communication with other providers. Discharge Instructions Please refer to the electronic Patient Visit Report (Discharge Instructions) for additional information. Follow-Up 3 weeks for repeat thermoplasty
[2017-04-04] MEDS ORDERED: MONT1TAB3 PO (15:35)
[2017-04-04] MEDS ORDERED: PRED10TA PO (15:35)
[2017-04-04] MEDS ORDERED: PANT40TA PO (15:35)
[2017-04-04] MEDS ORDERED: FSM70 PO (15:35)
[2017-04-04] MEDS ORDERED: BISM262S7 PO (15:35)
[2017-04-04] MEDS ORDERED: CICL160A INH (15:35)
== END 2017-03-24 13:00 ==
LOC: C.ACU 10:16 → C.MSW 10:45 → EDBEDREQSVC 15:56 → ENRESERV 16:13
PROVIDERS: ADMIT Family Medicine; ATTEND Family Medicine
DX: J45.51 Severe persistent asthma with (acute) exacerbation (principal); M81.0 Age-related osteoporosis without current pathological fracture; G40.909 Epilepsy, unspecified, not intractable, without status epilepticus; Z79.899 Other long term (current) drug therapy; Z79.52 Long term (current) use of systemic steroids; Z79.4 Long term (current) use of insulin

== ENCOUNTER 2017-04-16 10:11 | Observation (INO) | payer OTHER ==
--- NOTE | 2017-02-08 16:29 | PAT Medication Instructions ---
Service Date Feb 08, 2017. Current Home Medication List Albuterol Hfa (Ventolin Hfa), 2 PUFFS INH QID PRN for WHEEZING Alendronate/Cholecalciferol (Fosamax+D 70MG/5600 Iu), 1 TABLET PO WK Bismuth Subsalicylate (Bismatrol), 30 ML PO QID PRN for RN Calcium Carbonate (Tums), 2 TABS PO BID Carbamazepine (Tegretol), 200 MG PO BID Ciclesonide (Alvesco), 1 PUFF INH BID Fluticasone Prop/Salmeterol (Advair Diskus 500/50 60 Dose), 1 PUFFS INH BID Fluticasone Propionate (Nasal) (Flonase Allergy Relief), 2 SPRAY INH BID Insulin Human Regular (Humulin R), UD Ipratropium-Albuterol (Duoneb), 1 TREATMENT INH QID Montelukast Sodium (Singulair), 1 TAB PO DAILY PRN for PRN Prednisone (Prednisone), 3.5 TAB PO QAM Terbutaline Sulfate (Terbutaline Sulfate), 1 TAB PO BID Tiotropium [place] (Spiriva Handihaler), 1 CAP INH QPM Medication Instructions For Your Scheduled Surgery - Hold the following medications the morning of surgery: Alendronate/Cholecalciferol (Fosamax+D 70MG/5600 Iu), 1 TABLET PO WK Calcium Carbonate (Tums), 2 TABS PO BID Insulin Human Regular (Humulin R), UD Bismuth Subsalicylate (Bismatrol), 30 ML PO QID PRN - Take the following medications the morning of surgery with a sip of water OTHERWISE NOTHING TO EAT OR DRINK AFTER MIDNIGHT: Albuterol Hfa (Ventolin Hfa), 2 PUFFS INH QID PRN for WHEEZING (use if needed; BRING TO HOSPITAL) Terbutaline Sulfate (Terbutaline Sulfate), 1 TAB PO BID Carbamazepine (Tegretol), 200 MG PO BID Ciclesonide (Alvesco), 1 PUFF INH BID Fluticasone Prop/Salmeterol (Advair Diskus 500/50 60 Dose), 1 PUFFS INH BID Fluticasone Propionate (Nasal) (Flonase Allergy Relief), 2 SPRAY INH BID Prednisone (Prednisone), 3.5 TAB PO QAM Montelukast Sodium (Singulair), 1 TAB PO DAILY PRN for PRN Ipratropium-Albuterol (Duoneb), 1 TREATMENT INH QID - Take the following medications as scheduled the night before surgery: Albuterol Hfa (Ventolin Hfa), 2 PUFFS INH QID PRN for WHEEZING Tiotropium [place] (Spiriva Handihaler), 1 CAP INH QPM Calcium Carbonate (Tums), 2 TABS PO BID Terbutaline Sulfate (Terbutaline Sulfate), 1 TAB PO BID Carbamazepine (Tegretol), 200 MG PO BID Ciclesonide (Alvesco), 1 PUFF INH BID Fluticasone Prop/Salmeterol (Advair Diskus 500/50 60 Dose), 1 PUFFS INH BID Fluticasone Propionate (Nasal) (Flonase Allergy Relief), 2 SPRAY INH BID Bismuth Subsalicylate (Bismatrol), 30 ML PO QID PRN Ipratropium-Albuterol (Duoneb), 1 TREATMENT INH QID If you have any questions please call us at [phone] or [phone] or [phone]
[2017-04-04 15:19] VITALS: BMI 24.0
[2017-04-16] VITALS (9 sets, daily range): BP systolic 109–124; BP diastolic 70–76; PULSE 88–106; TEMP 36.5–36.7; O2SAT 90–98; Ht 188 cm; Wt 99.8 kg
[~2017-04-16] VITALS: Ht 188 cm; Wt 99.8 kg
[~2017-04-16 10:11] MED LIST changes: -ALEN70TA3 PO; +BISM262S7 PO; +CEFAZOLIN 2000 MG/60 ML D5W IV SCH; -DEXAMETHASONE SOD INJ 4 MG/ML VIAL ONE; -DIPH25CA65 PO; -FENTANYL CITRATE INJ 50 MCG/1 ML 2 ML VIAL ONE; +FSM70 PO; -LIDOCAINE HCL 2% 2 ML VIAL (20MG/ML) ONE; -MIDAZOLAM HCL 1 MG/ML 2ML VIAL ONE; -ONDANSETRON INJ 2 MG/ML 2 ML VIAL ONE; +PANT40TA PO; +PRED10TA PO; -PRED50TA PO; -PROPOFOL IV EMULSION 10 MG/ML 20 ML VIAL IV ONE; -ROCURONIUM BROMIDE 10 MG/ML 5 ML VIAL IV ONE; -[UNRECOGNIZED DRUG - CODE] PO
--- NOTE | 2017-04-16 10:53 | History and Physical ---
History & Physical Date Apr 16, 2017. Chief Complaint Sever Persistent Asthma History of Present Illness 46-year-old male with with severely persistent asthma has undergone 2 of 3 bronchial thyroplasty interventions here for the 3rd. Today will perform the last of the bronchial thyroplasty ease which involved as bilateral upper lobes. The 1st of his bronchial thyroplasty is was performed the right lower lobe on 02/21/2017 the following is the left lower lobe on 03/22/2017. No significant growth and the patient required a 24 hour stay after the 2nd bronchial thyroplasty as he was unable to reach the Baseline FEV1 (--): [facility]: x [phone] Snf Physician: Shayy Espinal [phone] Bronchial Thermo-Plasty to the right lower lobe (03/22/17) Microbiology: Within normal limits Bronchial Thermo-Plasty to the right lower lobe (02/21/17) Microbiology: Within normal limits Bronchoscopy (11/05/16) Ana Albicans PmHx: 1. Asthma (moderately to severely persistent) 3. Chronic cough 4. Chronic rhinitis 5. Vocal cord polyp 6. Osteoporosis 7. Seizure disorder PsHx: 1. History of Knee Surgery Family History 1. Family history of lung cancer Social History Never smoker Current Meds 1. Diskus 500-50 MCG/DOSE 1PUFF DAILY 2. Albuterol Sulfate (2.5 MG/3ML) 0.083% Inhalation Nebulization Solution; 3. [place] Nasal Mist Allergy/Sinus SOLN; 4. Benadryl Allergy 25 MG Oral Tablet; TAKE 50 MG Daily 5. Brethine 2.5 MG TABS 6. Ceftriaxone Sodium 1 GM Injection Solution Reconstituted; USE DIRECTED; 7. Flonase Allergy Relief 50 MCG/ACT 2 SPRAYS IN EACH NOSTRIL ONCE DAILY 8. Fosamax 70 MG Oral Tablet; TAKE 1 TABLET ONCE WEEKLY; 9. Lubriderm LOTN 10. Montelukast Sodium 10 MG Oral Tablet; TAKE 1 TABLET DAILY; 11. Mytab Gas 80 MG Oral Tablet Chewable; 12. Pantoprazole Sodium 40 MG Oral Tablet Delayed Release; 13. PredniSONE 50 MG Oral Tablet 14. Spiriva HandiHaler 18 MCG Inhalation Capsule ONCE DAILy 15. TEGretol 200 MG Oral Tablet; 16. Tylenol 325 MG Oral Tablet; TAKE 1 TO 2 TABLETS EVERY 6 HOURS NEEDED; 17. Ventolin HFA 108 (90 Base) MCG/ACT Inhalation Aerosol Solution; INHALE 1-2 PUFFS Allergies 1. No Known Drug Allergies Past Medical/Surgical History Medical Problems: (1) Asthma Additional History Hepatic Disease: No Endocrine Disorder: No Kidney Disease: No Hypertension: No Heart Disease: No Bleeding Tendencies: No Infectious Diseases: No Allergies Coded Allergies: No Known Allergies (Unverified , 03/22/17) Home Medications Scheduled Alendronate Sodium (Alendronate Sodium), 70 MG PO WK Calcium Carbonate (Tums), 2 TABS PO BID Carbamazepine (Tegretol), 200 MG PO BID Ciclesonide (Alvesco), 1 PUFF INH BID Fluticasone Prop/Salmeterol (Advair Diskus 500/50 60 Dose), 1 PUFFS INH BID Fluticasone Propionate (Nasal) (Flonase Allergy Relief), 2 SPRAY INH BID Insulin Human Regular (Humulin R), UD Ipratropium-Albuterol (Duoneb), 1 TREATMENT INH QID Montelukast Sodium (Singulair), 10 MG PO QAM Pantoprazole (Protonix), 40 MG PO QAM Prednisone Tab (Prednisone), 10 MG PO UD Terbutaline Sulfate (Terbutaline Sulfate), 2.5 MG PO BID Tiotropium [place] (Spiriva Handihaler), 1 CAP INH QPM Scheduled PRN Albuterol Hfa (Ventolin Hfa), 2 PUFFS INH QID PRN for WHEEZING Bismuth Subsalicylate (Pepto-Bismol), 30 ML PO QID PRN for Dyspepsia Physical Examination Skin: warm/dry, no rash Eyes: normal inspection, EOMI, sclerae normal ENT: normal ENT inspection, pharynx normal Head: normocephalic, atraumatic Neck: supple, no adenopathy, trachea midline Respiratory/Chest: + pertinent finding (exp wheezing globally) Cardiovascular: regular rate, rhythm, no edema, no murmur Abdomen / GI: normal bowel sounds, non tender Back: normal inspection Extremities: normal inspection, normal range of motion Neurologic/Psych: no motor/sensory deficits, alert, normal reflexes, oriented x 3 Diagnosis Sever Persistent Asthma ASA Classification: ASA Class III Plan of Treatment Perform flexible bronchoscopy with bronchial thermoplasty
[2017-04-16] MEDS ORDERED: FENTANYL CITRATE INJ 50 MCG/1 ML 2 ML VIAL ONE ×3 (11:29→13:30)
[2017-04-16] MEDS ORDERED: MIDAZOLAM HCL 1 MG/ML 2ML VIAL ONE (11:29)
[2017-04-16] MEDS ORDERED: CEFAZOLIN IV 2,000 MG/60 ML D5W IV ONE (11:32)
--- NOTE | 2017-04-16 11:33 | History & Physical Bridge Note ---
H&P Re-Evaluation Bridge Note: I have examined the patient, reviewed the History & Physical and in the interval since the performance of the History & Physical I have noted the following changes of clinical significance: Pre-Procedural FEV1: 1.77 with a baseline of 2.48. We are 71% of our baseline which means we can move forward with the planed procedure. No changes noted
[2017-04-16] MEDS ORDERED: NEOSTIGMINE METHYLSULFATE 5 MG/5 ML SYR ONE (11:53)
[2017-04-16] MEDS ORDERED: LIDOCAINE HCL 2% 2 ML VIAL (20MG/ML) ONE (11:53)
[2017-04-16] MEDS ORDERED: ONDANSETRON INJ 2 MG/ML 2 ML VIAL ONE ×2 (11:53→13:31)
[2017-04-16] MEDS ORDERED: GLYCOPYRROLATE INJ 0.2 MG/ML VIAL ONE (11:53)
[2017-04-16] MEDS ORDERED: PROPOFOL IV EMULSION 10 MG/ML 20 ML VIAL IV ONE ×2 (11:53→12:43)
[2017-04-16] MEDS ORDERED: DEXAMETHASONE SOD INJ 4 MG/ML VIAL ONE (11:53)
[2017-04-16] MEDS ORDERED: ALBUTEROL 0.083% NEBU SOLN 3 ML VIAL INH PRN (12:30)
[2017-04-16] MEDS ORDERED: FENTANYL CITRATE INJ 50 MCG/1 ML 2 ML VIAL IV PRN (12:30)
[2017-04-16] MEDS ORDERED: ONDANSETRON INJ 2 MG/ML 2 ML VIAL IV PRN ×2 (12:30→15:30)
[2017-04-16] MEDS ORDERED: HYDROmorphone INJ 1 MG/ML SYR IV PRN (12:30)
[2017-04-16] MEDS ORDERED: ATROPINE SULFATE 0.1 MG/ML 5ML SYR IV PRN (12:30)
[2017-04-16] MEDS ORDERED: EpHEDrine SULFATE INJ 50 MG/ML AMP IV PRN (12:30)
[2017-04-16] MEDS ORDERED: EpHEDrine SULFATE INJ 50 MG/ML AMP ONE (12:30)
[2017-04-16] MEDS ORDERED: ROCURONIUM BROMIDE 10 MG/ML 5 ML VIAL IV ONE (12:47)
--- NOTE | 2017-04-16 13:16 | Bronchoscopy Procedure Note ---
Bronchoscopy Procedure Note Procedure: Bronchoscopy, conscious sedation, bronchial thermoplasty, bronchial lavage of the lingula Consent: Obtained through the patient placed into the chart Pre-procedural diagnosis: Severe persistent asthma Post-procedural diagnosis: Severe persistent asthma Procedure: The Olympus video bronchoscope was used for this procedure along with the Alaris bronchial thermoplasty system ETT: 3 cm above the level gagandeep Trachea/Gagandeep: Visualized portion of the trachea and gagandeep anatomically within normal limits, diffuse heavy mucous plugs noted at the gagandeep leading into the right mainstem Right bronchial tree: Right mainstem bronchus: Anatomically within normal limits, diffuse mucous plugs Right upper lobe: Anatomically within normal limits Bronchus intermedius: Anatomically within normal limits Right middle lobe: Anatomically within normal limits Right lower lobe: Anatomically within normal limits Findings: No significant findings noted Left bronchial tree: Left mainstem bronchus: Anatomically within normal limits Left upper lobe: Anatomically within normal limits Lingula: Anatomically within normal limits Left lower lobe: Anatomically within normal limits Findings: No significant findings noted Bronchial alveolar lavage: Lingula EBL: 5cc Bronchial thermoplasty: Performed in the left upper lobe and lingula all subsegments please refer to report for total number of interventions Performed in the right upper lobe all subsegments please refer to the report. Total number of interventions Complications: None Follow-up: Moved to the PACU for further follow-up
[2017-04-16] MEDS ORDERED: HYDROmorphone INJ 2 MG/ML SYR/VIAL ONE (13:47)
--- NOTE | 2017-04-16 13:49 | Anesthesiology Progress Note ---
Anesthesia Post Op Note Date & Time Apr 16, 2017 at 13:49 Vital Signs Pain Intensity: 10.0 Vital Signs Past 12 Hours Date Time Temp Pulse Resp B/P (MAP) Pulse Ox O2 Delivery O2 Flow Rate FiO2 04/16/17 10:56 36.7 106 18 109/70 (83) 90 Room Air Notes Mental Status: alert / awake / arousable, participated in evaluation Pt Amnestic to Procedure: Yes Nausea / Vomiting: adequately controlled Pain: adequately controlled Airway Patency, RR, SpO2: stable & adequate BP & HR: stable & adequate Hydration State: stable & adequate Anesthetic Complications: no major complications apparent
[2017-04-16] MEDS ORDERED: KETOROLAC TROMETHAMINE 30 MG/ML VIAL IV STA (14:41)
[2017-04-16] MEDS ORDERED: KETOROLAC TROMETHAMINE 30 MG/ML VIAL ONE (14:46)
--- NOTE | 2017-04-16 15:15 | DIAGNOSTIC IMAGING REPORT ---
SINGLE VIEW CHEST CLINICAL HISTORY: Atypical chest pain status post bronchoscopy. FINDINGS: An AP, portable, upright chest radiograph is compared to study dated 03/22/2017. The examination is degraded by portable technique and patient rotation. The cardiomediastinal silhouette is unremarkable. There is prominence of the pulmonary vasculature. Fluid is noted along the right minor fissure. Subtle opacities are present within the left lateral lung. No pneumothorax is seen. The bony thorax is grossly intact. IMPRESSION: 1. There is prominence of the pulmonary vasculature and trace fluid along the right minor fissure. Correlate clinically for evidence of mild congestive change. 2. Subtle opacities are present within the left lung. Clinically for evidence of an inflammatory pneumonitis or possibly mild edema. Electronically signed by: Aung Mix M.D. 04/16/2017 3:14 PM Dictated Date/Time: 04/16/2017 3:12 PM
[2017-04-16] MEDS ORDERED: GLUCOSE 40% GEL 15 GM TUBE PO PRN (15:30)
[2017-04-16] MEDS ORDERED: MAGNESIUM HYDROXIDE SUSP 30 ML UDC PO PRN (15:30)
[2017-04-16] MEDS ORDERED: ALBUTEROL HFA 8 GM INHALER INH PRN (15:30)
[2017-04-16] MEDS ORDERED: ALUMINUM/MAGNESIUM/SIMETH (MAALOX MAX) 30 ML UDC PO PRN (15:30)
[2017-04-16] MEDS ORDERED: GLUCAGON FOR INJ 1 MG VIAL SQ PRN (15:30)
[2017-04-16] MEDS ORDERED: DEXTROSE 50% 50 ML SYR IV PRN (15:30)
[2017-04-16] MEDS ORDERED: GLUCOSE 10 TABS/TUBE PO PRN (15:30)
[2017-04-16] MEDS ORDERED: POLYETHYLENE (MIRALAX) 17 GM PACK PO PRN (15:30)
[2017-04-16] MEDS ORDERED: ACETAMINOPHEN 325 MG TAB PO PRN (15:30)
[2017-04-16] MEDS ORDERED: METHYLPREDNISOLONE IV 60 MG in SYRINGE 0 ML IV ONE (15:40)
[2017-04-16] MEDS ORDERED: IV FLUIDS COMPLETED PRN (15:45)
--- NOTE | 2017-04-16 16:02 | History and Physical ---
History & Physical Date & Time of Service: Apr 16, 2017 at 15:41 Chief Complaint: Severe Persistent Asthma Primary Care Physician: Griffin Ramos M.D. History of Present Illness Source: patient, clinic records, hospital records This is a 46 y/o male with a history of severe persistent asthma, DM II, seizure disorder, osteoporosis and GERD who presents s/p bronchoscopy and thermoplasty with Dr. Fitzpatrick for admission. The patient has severe asthma with fully maximized medical therapy. Today the patient had his third and final bronchoscopy and thermoplasty procedure done. The patient now presents for admission for overnight observation due to concern for bronchospasm. The patient complains of wheezing, shortness of breath and a non-productive cough. He complains of chills although he has been afebrile and complains of a 9/10 aching chest pain located in the middle of his chest and over his left ribs which is worse with deep breaths and coughing. He has not yet eaten, urinated, passed gas or had a bowel movement following the procedure. The patient denies fevers, sweats, palpitations, claudication, nausea, vomiting, abdominal pain, dysuria, hematuria, urinary retention, paralysis, weakness, numbness and tingling. Past Medical/Surgical History Severe persistent asthma DM II Seizure disorder Osteoporosis GERD Family History Diabetes mellitus Lung cancer Seizures Social History Smoking Status: Never Smoker Smokeless Tobacco Use: No Alcohol Use: none Drug Use: none Housing status: other (inmate) Occupational Status: other ([employer]) Allergies Coded Allergies: No Known Allergies (Unverified , 03/22/17) Home Medications Scheduled Alendronate Sodium (Alendronate Sodium), 70 MG PO WK Calcium Carbonate (Tums), 2 TABS PO BID Carbamazepine (Tegretol), 200 MG PO BID Ciclesonide (Alvesco), 1 PUFF INH BID Fluticasone Prop/Salmeterol (Advair Diskus 500/50 60 Dose), 1 PUFFS INH BID Fluticasone Propionate (Nasal) (Flonase Allergy Relief), 2 SPRAY INH BID Insulin Human Regular (Humulin R), UD Ipratropium-Albuterol (Duoneb), 1 TREATMENT INH QID Montelukast Sodium (Singulair), 10 MG PO QAM Pantoprazole (Protonix), 40 MG PO QAM Prednisone Tab (Prednisone), 10 MG PO UD Terbutaline Sulfate (Terbutaline Sulfate), 2.5 MG PO BID Tiotropium [place] (Spiriva Handihaler), 1 CAP INH QPM Scheduled PRN Albuterol Hfa (Ventolin Hfa), 2 PUFFS INH QID PRN for WHEEZING Review of Systems Constitutional: + chills, No fever, No sweats Eyes: No worsening of vision, No eye pain, No diplopia ENT: No hearing loss, No sore throat, No trouble swallowing Respiratory: + cough, + wheezing, + shortness of breath, No sputum Cardiovascular: + chest pain, No claudication, No palpitations Abdomen: No pain, No nausea, No vomiting Musculoskeletal: No joint pain, No muscle pain, No calf pain Genitourinary - Male: No hematuria, No dysuria, No urinary retention Neurologic: No paralysis, No weakness, No numbness/tingling Integumentary: No rash, No itch, No color change Physical Exam Vital Signs Date Time Temp Pulse Resp B/P (MAP) Pulse Ox O2 Delivery O2 Flow Rate FiO2 04/16/17 15:38 92 13 04/16/17 15:38 91 13 97 04/16/17 15:36 115/84 04/16/17 15:33 92 12 04/16/17 15:33 93 12 96 04/16/17 15:31 135/80 04/16/17 15:28 104 20 04/16/17 15:28 105 20 95 04/16/17 15:27 106 20 04/16/17 15:27 20 131/82 94 04/16/17 15:22 95 15 04/16/17 15:22 95 15 96 04/16/17 15:17 93 15 96 04/16/17 15:17 95 15 04/16/17 15:16 95 13 115/64 95 04/16/17 15:16 96 13 04/16/17 15:11 94 12 04/16/17 15:11 94 12 107/68 96 04/16/17 15:06 94 12 115/70 92 04/16/17 15:06 94 12 04/16/17 15:05 94 18 96 04/16/17 15:05 93 18 04/16/17 15:03 36.4 04/16/17 15:01 114/71 04/16/17 15:00 97 16 04/16/17 15:00 100 16 93 04/16/17 14:55 91 16 04/16/17 14:55 86 16 113/79 96 04/16/17 14:54 98 16 93 17 14:54 97 16 04/16/17 14:52 156/99 04/16/17 14:49 98 16 97 04/16/17 14:49 91 16 04/16/17 14:46 110/71 04/16/17 14:44 28 04/16/17 14:44 101 28 04/16/17 14:41 145/72 04/16/17 14:39 90 12 04/16/17 14:39 90 12 99 04/16/17 14:36 113/76 04/16/17 14:36 88 16 94 Mask 2.0 04/16/17 14:34 96 22 04/16/17 14:34 22 04/16/17 14:33 89 15 04/16/17 14:33 89 15 04/16/17 14:31 120/73 04/16/17 14:28 85 16 04/16/17 14:28 16 04/16/17 14:26 120/67 04/16/17 14:23 91 17 04/16/17 14:23 88 17 93 04/16/17 14:22 87 12 93 04/16/17 14:22 85 12 04/16/17 14:21 111/68 04/16/17 14:17 91 24 04/16/17 14:17 90 24 88 04/16/17 14:16 110/73 04/16/17 14:12 91 17 93 04/16/17 14:12 92 17 04/16/17 14:11 96/88 04/16/17 14:07 86 10 04/16/17 14:07 86 10 92 04/16/17 14:06 112/79 04/16/17 14:02 86 11 97 04/16/17 14:02 86 11 04/16/17 14:01 106/81 04/16/17 13:58 84 14 04/16/17 13:58 84 14 95 04/16/17 13:56 116/81 04/16/17 13:53 91 13 04/16/17 13:53 90 13 94 04/16/17 13:51 100/91 04/16/17 13:48 88 20 04/16/17 13:48 87 20 98 04/16/17 13:46 123/89 04/16/17 13:43 83 14 04/16/17 13:43 84 14 100 04/16/17 13:38 89 18 97 04/16/17 13:38 87 18 04/16/17 13:36 120/93 04/16/17 13:33 91 20 04/16/17 13:33 90 20 97 04/16/17 13:28 90 21 97 04/16/17 13:28 91 21 04/16/17 13:26 113/67 04/16/17 13:24 132/78 04/16/17 13:23 84 16 04/16/17 13:23 36.1 87 16 132/78 99 Oxymask 10 04/16/17 13:23 84 16 99 04/16/17 10:56 36.7 106 18 109/70 (83) 90 Room Air General appearance: Well-developed, well-nourished, no apparent distress Head: Normocephalic, atraumatic Eyes: Normal inspection, PERRL, EOMI ENT: +Dry oral mucosa. Normal ENT inspection, hearing grossly normal, pharynx normal Neck: Supple, no JVD, trachea midline Respiratory/Chest: +Significant wheezing throughout. Chest TTP. Normal breath sounds, no respiratory distress Cardiovascular: Regular rate & rhythm, no gallop, no murmur Abdomen/GI: Normal bowel sounds, non-tender, soft Extremities/Musculoskeletal: Normal inspection, no calf tenderness, no pedal edema Neurological/Psych: Alert, normal mood/affect, oriented x 3 Skin: Normal color, warm/dry, no rash Diagnostics Laboratory Results Results Past 24 Hours Test 04/16/17 10:47 04/16/17 13:32 04/16/17 14:43 Range/Units Bedside Glucose 97 113 70-99 mg/dl Troponin I < 0.015 0-0.045 ng/ml Microbiology Results 04/16/17 Acid Fast Stain, Received Pending 04/16/17 Mycobacterial Culture, Received Pending 04/16/17 Fungal Smear, Received Pending 04/16/17 Fungal Culture, Received Pending 04/16/17 Gram Stain, Received Pending 04/16/17 Bronchoalveolar Lavage Culture, Received Pending Diagnostic Radiology Reviewed the following studies and agree with interpretation as follows: Patient Name: TREE BAI [id number] Unit Number: [id number] Dictated: 04/16/171511 Transcribed: 04/16/171511 EV Printed Date/Time: [~ rep prt dt]/[~ rep prt tm] [~ rep ct labl] - [~ rep ct ivnm] [facility] [place] [address] Dictated: 04/16/171511 Transcribed: 04/16/171511 EV Printed Date/Time: [~ rep prt dt]/[~ rep prt tm] [~ rep ct labl] - [~ rep ct ivnm] Patient: TREE BAI [id number] Address1: [facility] Rec: [id number] Address2: [address] [place] [address] Acct ID: [id number] [facility] Zip: [place] [address] Date: 1970 Sex: M Room/Bed: Ref Phy: Griffin Ramso M.D. SC: DARIUS Att Phy: Nehemias Fitzpatrick MD Report #: [id number] Anastasiya Phy: Griffin Ramos M.D. Test: CXR1P Admit Phy: Actuarial Associate: ETHAN Interpreting Phy: Aung Mix M.D. Diagnosis: SEVERE PERSISTENT ASTHMA Ordering Phy: Nehemias Fitzpatrick MD Service Date: 04/16/17 Admit Date: 04/16/17 MNE: [id number] CONF: DICTATED BY: Aung Mix M.D.]] CC: Griffin Ramos M.D., Thomas W., MD Endcc: [~ rep ct add3]] SINGLE VIEW CHEST CLINICAL HISTORY: Atypical chest pain status post bronchoscopy. FINDINGS: An AP, portable, upright chest radiograph is compared to study dated 03/22/2017. The examination is degraded by portable technique and patient rotation. The cardiomediastinal silhouette is unremarkable. There is prominence of the pulmonary vasculature. Fluid is noted along the right minor fissure. Subtle opacities are present within the left lateral lung. No pneumothorax is seen. The bony thorax is grossly intact. IMPRESSION: 1. There is prominence of the pulmonary vasculature and trace fluid along the right minor fissure. Correlate clinically for evidence of mild congestive change. 2. Subtle opacities are present within the left lung. Clinically for evidence of an inflammatory pneumonitis or possibly mild edema. Electronically signed by: Aung Mix M.D. 04/16/2017 3:14 PM Dictated Date/Time: 04/16/2017 3:12 PM The status of this report is Signed. Draft = Not yet reviewed or approved by Radiologist. Signed = Reviewed and approved by Radiologist. <AttendingPhy>Nehemias Fitzpatrick MD</AttendingPhy> <FamilyPhy>Griffin Ramos M.D.</FamilyPhy> <PrimaryPhy>Griffin Ramos M.D.</PrimaryPhy> < UnitNumber>[id number]</UnitNumber> <VisitNumber>[id number]</VisitNumber> < PatientName>TREE BAI [id number]</PatientName> <DateOfBirth>1970</ DateOfBirth> <Location>[facility]</Location> <ServiceDate>04/16/17</ServiceDate> <MNE >ESINDI</MNE> <OrderingPhy>Nehemias Fitzpatrick MD</OrderingPhy> <OrderingPhyMNE >f rep ord dr jordan</OrderingPhyMNE> <DictatingPhyMNE>f rep dict dr jordan</ DictatingPhyMNE> <CCListMNE>f rep ct nikki</CCListMNE> <AdmittingPhyMNE>f pt admit dr jordan</AdmittingPhyMNE> <AttendingPhyMNE>f pt attend dr jordan</ AttendingPhyMNE> <ConsultingPhyMNE>f pt consult dr jordan</ConsultingPhyMNE> <FamilyPhyMNE>f pt fam dr jordan</FamilyPhyMNE> <OtherPhyMNE>f pt other dr jordan</OtherPhyMNE> < PrimaryPhyMNE>f pt prim care dr jordan</PrimaryPhyMNE> <ReferringPhyMNE>f pt referring dr jordan</ReferringPhyMNE> EKG Reviewed EKG and agree with interpretation as follows: 93 bpm, NSR Impression Assessment and Plan 46 y/o male with a history of severe persistent asthma, DM II, seizure disorder , osteoporosis and GERD who presents s/p bronchoscopy and thermoplasty with Dr. Fitzpatrick for overnight observation. Pt began to complain of severe chest pain while in the PACU. Dr. Fitzpatrick performed a bedside ultrasound which was negative for pneumothorax. Chest x-ray shows possible mild congestive changes and subtle opacities in left lung inflammatory pneumonitis vs mild edema. EKG shows no ischemic changes and troponin negative. Severe asthma s/p 3rd bronchoscopy and thermoplasty, POD #0 -Admit to telemetry for observation -Solu-Medrol 60 mg IV BID, one dose now. Pt had been on chronic Prednisone as outpatient, taking 50 mg PO qd prior to procedure -Tessalon Perles 100 mg PO TID -Continue Advair 1 puff inh BID, [place]ves[place] 1 puff inh BID, DuoNeb QIDR scheduled, Spiriva 1 cap inh qd, terbutaline 2.5 mg PO BID and Singulair 10 mg PO qd -Bronchial Gram stain, culture, fungal smear and culture, AFB stain and mycobacterial culture pending Chest pain, seems to be pleuritic -Ultrasound no pneumothorax -CXR possible mild edema -EKG no ischemic changes, troponin negative -Continue to monitor DM II--unknown last HgbA1c -Insulin sliding scale -Check BSGs q ac and qhs -Check HgbA1c w/morning labs Seizure disorder -Continue Tegretol 200 mg PO BID Osteoporosis -Hold Fosamax GERD -Continue Protonix 40 mg PO qd DVT prophylaxis -Enoxaparin 40 mg SC q24h -DELANEY tam and SCDs Code Status -Level I, FULL RESUSCITATION STATUS Dispo -From [facility], anticipate d/c likely tomorrow I agree with PA assessment and plan VSS Labs reviewed Noted extensive wheezing S/p thermoplasty Cont asthma meds, scheduled duonebs, and solumedrol 60 mg IV BID Obs tele Likely DC in AM Level of Care Telemetry Resuscitation Status FULL RESUSCITATION VTE Prophylaxis VTE Risk Assessment Done? Y/N: Yes Risk Level: Low Given or contraindicated: Enoxaparin (Lovenox)SQ, T.E.D. Stockings, SCD's
[2017-04-16 16:58] LABS: HEMATOCRIT 44.4 % (42-52); MEAN CELL VOLUME 95.3 fL (80-100); MEAN CORPUSCULAR HEMOGLOBIN 31.1 pg (25-34); MEAN CORPUSCULAR HGB CONC 32.7 g/dl (32-36); MEAN PLATELET VOLUME 9.4 fL (7.4-10.4); PLATELET COUNT 218 K/uL (130-400); RED BLOOD COUNT 4.66 M/uL (4.7-6.1); WHITE BLOOD COUNT 11.82 K/uL (4.8-10.8)
[2017-04-16 17:39] LABS: BUN/CREATININE RATIO 12.4 (10-20); CALCIUM 8.3 mg/dl (8.5-10.1); CREATININE 0.94 mg/dl (0.60-1.40); POTASSIUM 4.3 mmol/L (3.5-5.1)
[2017-04-16 17:42] LABS: PROTHROMBIN TIME (PATIENT) 10.7 SECONDS (9.0-12.0)
[2017-04-16] MEDS: ALBUT/IPRATROP 3MG/0.5MG NEB 3 ML VIAL INH SCH (18:14)
[2017-04-16] MEDS: KETOROLAC TROMETHAMINE 30 MG/ML VIAL IV PRN (18:41)
[2017-04-16] MEDS: INSULIN ASPART 100 UNITS/ML 3 ML PEN SC SCH (20:21)
[2017-04-16] MEDS: FLUTICASONE/SALMETEROL (ADVAIR) 500/50 INH 14 PUFF INH SCH (20:22)
[2017-04-16] MEDS: TIOTROPIUM BROMIDE 5 PUFF/90 MCG INH INH SCH (20:23)
[2017-04-16] MEDS: ENOXAPARIN 40 MG/0.4 ML SYR SC SCH (20:24)
[2017-04-16] MEDS: FLUTICASONE PROPIONATE NA SPR 16 GM BTL SCH (20:24)
[2017-04-16] MEDS: CALCIUM CARBONATE 500 MG CHEWABLE PO SCH (20:25)
[2017-04-16] MEDS: MONTELUKAST SOD 10 MG TAB PO SCH (20:25)
[2017-04-16] MEDS: BENZONATATE 100MG CAP PO SCH (20:25)
[2017-04-16] MEDS: CARBAMAZEPINE 200 MG TAB PO SCH (20:26)
[2017-04-16] MEDS: TERBUTALINE SULFATE 5 MG TAB PO SCH (20:27)
[2017-04-16] MEDS: METHYLPREDNISOLONE IV 60 MG in SYRINGE 0 ML IV SCH (23:40)
[2017-04-17] VITALS (12 sets, daily range): BP systolic 109–126; BP diastolic 72–88; PULSE 81–101; TEMP 36.5–36.7; O2SAT 91–100
[2017-04-17] MEDS: KETOROLAC TROMETHAMINE 30 MG/ML VIAL IV PRN ×3 (01:08→19:57)
[2017-04-17 06:34] LABS: HEMATOCRIT 42.7 % (42-52); MEAN CELL VOLUME 93.2 fL (80-100); MEAN CORPUSCULAR HEMOGLOBIN 31.9 pg (25-34); MEAN CORPUSCULAR HGB CONC 34.2 g/dl (32-36); MEAN PLATELET VOLUME 9.7 fL (7.4-10.4); PLATELET COUNT 222 K/uL (130-400); RED BLOOD COUNT 4.58 M/uL (4.7-6.1); WHITE BLOOD COUNT 15.05 K/uL (4.8-10.8)
[2017-04-17] MEDS: INSULIN ASPART 100 UNITS/ML 3 ML PEN SC SCH ×4 (07:00→21:00)
[2017-04-17 07:02] LABS: CALCIUM 8.8 mg/dl (8.5-10.1); CREATININE 0.87 mg/dl (0.60-1.40); POTASSIUM 4.4 mmol/L (3.5-5.1)
[2017-04-17 07:27] LABS: ESTIMATED AVERAGE GLUCOSE 151 mg/dl; HA1C FLAG Normal (Normal)
[2017-04-17] MEDS: FLUTICASONE PROPIONATE NA SPR 16 GM BTL SCH ×2 (07:44→19:57)
[2017-04-17] MEDS: FLUTICASONE/SALMETEROL (ADVAIR) 500/50 INH 14 PUFF INH SCH ×2 (07:44→19:58)
[2017-04-17] MEDS: CARBAMAZEPINE 200 MG TAB PO SCH ×2 (07:45→20:01)
[2017-04-17] MEDS: CALCIUM CARBONATE 500 MG CHEWABLE PO SCH ×2 (07:45→20:00)
[2017-04-17] MEDS: BENZONATATE 100MG CAP PO SCH ×3 (07:45→19:58)
[2017-04-17] MEDS: TERBUTALINE SULFATE 5 MG TAB PO SCH ×2 (07:46→19:59)
[2017-04-17] MEDS: PANTOprazole SOD 40 MG TAB PO SCH (07:46)
[2017-04-17] MEDS: ALBUT/IPRATROP 3MG/0.5MG NEB 3 ML VIAL INH SCH ×4 (08:27→18:25)
[2017-04-17] MEDS ORDERED: MoRPHine SULFATE 2 MG/ML CARP IV STA (09:23)
--- NOTE | 2017-04-17 09:45 | Hospitalist Progress Note ---
Hospitalist Progress Note Date of Service Apr 17, 2017. Subjective Pt evaluation today including: conversation w/ patient, physical exam, chart review, lab review, review of studies, review of inpatient medication list Patient seen and evaluated. Had thermoplasty performed yesterday. Complaining of significant CP. Denies H/O narcotic abuse. Patient is in mild distress, labored breathing. Lungs with significant expiratory wheeze and rhonchi. No stridor appreciated. Still having chills Can talk but gets winded. Denies other complaints. Constitutional: + chills Respiratory: + cough, + wheezing, + shortness of breath Cardiovascular: + chest pain Abdomen: No pain, No nausea, No vomiting, No diarrhea, No constipation Musculoskeletal: No calf pain Male : No dysuria Heme: No abnormal bleeding/bruising Medications Current Inpatient Medications Medications (Trade) Dose Ordered Sig/Elza Route Start Time Stop Time Status Last Admin Dose Admin Enoxaparin Sodium (Lovenox Inj) 40 mg Q24H SC 04/16/17 21:00 05/16/17 20:59 04/16/17 20:24 40 MG Acetaminophen (Tylenol Tab) 650 mg Q4H PRN PO 04/16/17 15:30 05/16/17 15:29 Al Hydrox/Mg Hydrox/Simethicone (Maalox Max Susp) 15 ml Q4H PRN PO 04/16/17 15:30 05/16/17 15:29 Magnesium Hydroxide (Milk Of Magnesia Susp) 30 ml Q12H PRN PO 04/16/17 15:30 05/16/17 15:29 Ondansetron HCl (Zofran Inj) 4 mg Q6H PRN IV 04/16/17 15:30 05/16/17 15:29 Polyethylene (Miralax Powder Packet) 17 gm DAILY PRN PO 04/16/17 15:30 05/16/17 15:29 Glucose (Glucose 40% Gel) 15-30 GRAMS 15 GRAMS... UD PRN PO 04/16/17 15:30 05/16/17 15:29 Glucose (Glucose Chew Tab) 4-8 Tablets 4 Tabl... UD PRN PO 04/16/17 15:30 05/16/17 15:29 Dextrose (Dextrose 50% 50ML Syringe) 25-50ML OF 50% DW IV FOR... UD PRN IV 04/16/17 15:30 05/16/17 15:29 Glucagon (Glucagon Inj) 1 mg UD PRN SQ 04/16/17 15:30 05/16/17 15:29 Insulin Aspart (novoLOG ASPART) SLIDING SCALE G... ACHS SC 04/16/17 21:00 05/16/17 20:59 Albuterol (Ventolin Hfa Inhaler) 2 puffs QID PRN INH 04/16/17 15:30 05/16/17 15:29 Calcium Carbonate (Tums Chew Tab) 1,000 mg BID PO 04/16/17 21:00 05/16/17 20:59 04/17/17 07:45 1,000 MG Carbamazepine (Tegretol Tab) 200 mg BID PO 04/16/17 21:00 05/16/17 20:59 04/17/17 07:45 200 MG Salmeterol Xinafoate/ Fluticasone (Advair Diskus 500/50 Inh) 1 puff BID INH 04/16/17 21:00 05/16/17 20:59 04/17/17 07:44 1 PUFF Fluticasone Propionate (Flonase Nasal [place]) 2 sprays BID NA 04/16/17 21:00 05/16/17 20:59 04/17/17 07:44 2 SPRAYS Albuterol/ Ipratropium (Duoneb) 3 ml QIDR INH 04/16/17 20:00 05/16/17 19:59 04/17/17 08:27 3 ML Montelukast Sodium (Singulair Tab) 10 mg QPM PO 04/16/17 21:00 05/16/17 20:59 04/16/17 20:25 10 MG Pantoprazole Sodium (Protonix Tab) 40 mg QAM PO 04/17/17 09:00 05/17/17 08:59 04/17/17 07:46 40 MG Tiotropium [place] (Spiriva Handihaler Inhaler) 1 puff QPM INH 04/16/17 21:00 05/16/17 20:59 04/16/17 20:23 1 PUFF Miscellaneous Information (Order Awaiting Action) 1 ea QS N/A 04/17/17 00:00 05/17/17 00:00 Terbutaline Sulfate (Brethine Tab) 2.5 mg BID PO 04/16/17 21:00 05/16/17 20:59 04/17/17 07:46 2.5 MG Methylprednisolone Sodium Succinate 60 mg/Syringe 0.96 ml @ 1.5 mls/min Q12H IV 04/17/17 00:00 05/17/17 00:00 04/16/17 23:40 1.5 MLS/MIN Benzonatate (Tessalon Perles Cap) 100 mg TID PO 04/16/17 21:00 05/16/17 20:59 04/17/17 07:45 100 MG Miscellaneous (Iv Fluids Completed) 1 ea PRN PRN N/A 04/16/17 15:45 04/16/18 15:44 Ketorolac Tromethamine (Toradol Inj) 30 mg Q6H PRN IV 04/16/17 18:30 04/21/17 18:29 04/17/17 07:43 30 MG Morphine Sulfate (MoRPHine SULFATE INJ) 2 mg NOW STAT IV 04/17/17 09:23 04/17/17 09:24 UNV Tramadol HCl (Ultram Tab) 50 mg Q4H PRN PO 04/17/17 09:30 05/17/17 09:29 UNV Objective Vital Signs Date Time Temp Pulse Resp B/P (MAP) Pulse Ox O2 Delivery O2 Flow Rate FiO2 04/17/17 08:00 Nasal Cannula 2.0 04/17/17 07:42 36.5 83 18 113/74 (87) 98 3.0 04/17/17 07:05 81 18 100 Nasal Cannula 2.0 04/17/17 04:40 36.7 84 18 114/74 (87) 91 04/17/17 04:00 Nasal Cannula 2.0 04/17/17 00:55 36.6 98 18 124/88 (100) 95 04/17/17 00:00 Humidified Oxygen 2.0 04/16/17 20:12 36.6 98 22 124/76 (92) 97 Nasal Cannula 4.0 04/16/17 20:00 94 Nasal Cannula 2.0 04/16/17 18:41 92 111/70 (84) 96 Nasal Cannula 4.0 04/16/17 18:14 90 18 98 Room Air 9/19/17 17:35 94 20 112/73 (86) 96 4.0 17 17:01 93 109/73 (85) 91 2.0 17 16:42 36.5 89 22 123/74 97 Nasal Cannula 2.0 17 16:18 36.8 17 16:16 121/80 04/16/17 16:14 91 18 17 16:14 91 18 96 17 16:11 115/74 17 16:09 99 23 04/16/17 16:09 103 23 115/78 95 04/16/17 16:06 96/72 17 16:04 100 20 93 17 16:04 99 20 17 16:01 104/69 04/16/17 15:59 92 16 97 04/16/17 15:59 86 16 04/16/17 15:56 113/72 17 15:54 95 16 17 15:54 93 16 94 17 15:51 107/64 04/16/17 15:49 94 16 04/16/17 15:49 133 16 04/16/17 15:46 118/73 17 15:44 93 16 97 04/16/17 15:44 92 16 04/16/17 15:41 116/78 04/16/17 15:39 95 12 96 17 15:39 96 12 04/16/17 15:38 92 13 04/16/17 15:38 91 13 97 17 15:36 115/84 19/17 15:33 92 12 19/17 15:33 93 12 96 19/17 15:31 135/80 19/17 15:28 104 20 19/17 15:28 105 20 95 19/17 15:27 106 20 19/17 15:27 20 131/82 94 19/17 15:22 95 15 19/17 15:22 95 15 96 19/17 15:17 93 15 96 19/17 15:17 95 15 04/16/17 15:16 95 13 115/64 95 19/17 15:16 96 13 17 15:11 94 12 17 15:11 94 12 107/68 96 17 15:06 94 12 115/70 92 17 15:06 94 12 17 15:05 94 18 96 17 15:05 93 18 17 15:03 36.4 04/16/17 15:01 114/71 17 15:00 97 16 17 15:00 100 16 93 17 14:55 91 16 17 14:55 86 16 113/79 96 04/16/17 14:54 98 16 93 04/16/17 14:54 97 16 04/16/17 14:52 156/99 04/16/17 14:49 98 16 97 17 14:49 91 16 04/16/17 14:46 110/71 04/16/17 14:44 28 04/16/17 14:44 101 28 04/16/17 14:41 145/72 04/16/17 14:39 90 12 17 14:39 90 12 99 17 14:36 113/76 17 14:36 88 16 94 Mask 2.0 04/16/17 14:34 96 22 17 14:34 22 17 14:33 89 15 17 14:33 89 15 17 14:31 120/73 17 14:28 85 16 17 14:28 16 17 14:26 120/67 17 14:23 91 17 17 14:23 88 17 93 17 14:22 87 12 93 17 14:22 85 12 17 14:21 111/68 17 14:17 91 24 04/16/17 14:17 90 24 88 17 14:16 110/73 17 14:12 91 17 93 17 14:12 92 17 04/16/17 14:11 96/88 04/16/17 14:07 86 10 04/16/17 14:07 86 10 92 04/16/17 14:06 112/79 04/16/17 14:02 86 11 97 04/16/17 14:02 86 11 04/16/17 14:01 106/81 04/16/17 13:58 84 14 04/16/17 13:58 84 14 95 04/16/17 13:56 116/81 04/16/17 13:53 91 13 04/16/17 13:53 90 13 94 04/16/17 13:51 100/91 04/16/17 13:48 88 20 04/16/17 13:48 87 20 98 04/16/17 13:46 123/89 04/16/17 13:43 83 14 04/16/17 13:43 84 14 100 04/16/17 13:38 89 18 97 04/16/17 13:38 87 18 04/16/17 13:36 120/93 04/16/17 13:33 91 20 04/16/17 13:33 90 20 97 04/16/17 13:28 90 21 97 04/16/17 13:28 91 21 04/16/17 13:26 113/67 04/16/17 13:24 132/78 04/16/17 13:23 84 16 04/16/17 13:23 36.1 87 16 132/78 99 Oxymask 10 04/16/17 13:23 84 16 99 04/16/17 10:56 36.7 106 18 109/70 (83) 90 Room Air Physical Exam General Appearance: WD/WN, + mild distress Eyes: sclerae normal ENT: hearing grossly normal Neck: supple, no JVD, trachea midline Respiratory/Chest: + respiratory distress, + rhonchi (intermittent), + wheezing (diffuse, b/l), + pertinent finding (no stridor) Cardiovascular: regular rate, rhythm, no gallop, no murmur Abdomen: normal bowel sounds, non tender, soft Extremities: no pedal edema, no calf tenderness Neurologic/Psychiatric: alert, oriented x 3 Skin: normal color, warm/dry Laboratory Results Last 24 Hours Test 04/16/17 10:47 04/16/17 13:32 04/16/17 14:43 04/16/17 16:59 Bedside Glucose 97 mg/dl 113 mg/dl 140 mg/dl White Blood Count 11.82 K/uL Red Blood Count 4.66 M/uL Hemoglobin 14.5 g/dL Hematocrit 44.4 % Mean Corpuscular Volume 95.3 fL Mean Corpuscular Hemoglobin 31.1 pg Mean Corpuscular Hemoglobin Concent 32.7 g/dl RDW Standard Deviation 49.1 fL RDW Coefficient of Variation 14.1 % Platelet Count 218 K/uL Mean Platelet Volume 9.4 fL Prothrombin Time 10.7 SECONDS Prothromb Time International Ratio 1.0 Troponin I < 0.015 ng/ml Test 04/16/17 17:12 04/16/17 19:59 04/17/17 05:58 04/17/17 06:43 Sodium Level 140 mmol/L 139 mmol/L Potassium Level 4.3 mmol/L 4.4 mmol/L Chloride Level 106 mmol/L 106 mmol/L Carbon Dioxide Level 27 mmol/L 25 mmol/L Anion Gap 7.0 mmol/L 8.0 mmol/L Blood Urea Nitrogen 12 mg/dl 12 mg/dl Creatinine 0.94 mg/dl 0.87 mg/dl Est Creatinine Clear Calc Drug Dose 122.7 ml/min 132.5 ml/min Estimated GFR () 111.5 119.1 Estimated GFR (Non- 96.2 102.8 BUN/Creatinine Ratio 12.4 14.0 Random Glucose 151 mg/dl 123 mg/dl Calcium Level 8.3 mg/dl 8.8 mg/dl Bedside Glucose 139 mg/dl 124 mg/dl White Blood Count 15.05 K/uL Red Blood Count 4.58 M/uL Hemoglobin 14.6 g/dL Hematocrit 42.7 % Mean Corpuscular Volume 93.2 fL Mean Corpuscular Hemoglobin 31.9 pg Mean Corpuscular Hemoglobin Concent 34.2 g/dl RDW Standard Deviation 46.4 fL RDW Coefficient of Variation 13.6 % Platelet Count 222 K/uL Mean Platelet Volume 9.7 fL Estimated Average Glucose 151 mg/dl Hemoglobin A1c 6.9 % Assessment and Plan Mr. Serra is a 46 y/o male with PMHx of Severe Persistent Asthma, T2DM, and Seizure D/O who presents S/P Bronchoscopy with Thermoplasty by Dr. Fitzpatrick on 04/16. Severe Persistent Asthma S/P Bronchoscopy with Thermoplasty on 04/16: - CXR with possible mild congestion with pneumonitis vs mild edema - Solu-Medrol 60 mg IV Q12H - Advair 1 puff BID, Singulair 10 mg daily, Brethine 2.5 mg BID, and Spiriva 1 puff daily T2DM: A1c 6.9 - Cover with SSI Seizure D/O: - Tegretol 200 mg BID DVT Prophylaxis: Lovenox 40 mg SC daily Code Status: FULL RESUSCITATION Disposition: [facility] [place] - if resp. status improves likely D/C tomorrow Continued [facility] stay due to: other (respiratory status) Discharge planning: other (Jail - [place])
[2017-04-17] MEDS: METHYLPREDNISOLONE IV 60 MG in SYRINGE 0 ML IV SCH (12:23)
[2017-04-17] MEDS: MoRPHine SULFATE 2 MG/ML CARP IV PRN ×2 (12:29→16:42)
--- NOTE | 2017-04-17 13:11 | Pulmonology Progress Note ---
Pulmonary Progress Note Date of Service Apr 17, 2017. Attending Dr. Fitzpatrick Subjective Patient continues to note some mild substernal atypical chest pain with inspiration and expiration and difficulty breathing: Objective Patient able to set up complete full sentences no signs of labored breathing during our interview: Vital signs: Stable with 2 L nasal cannula Respiratory: Expiratory wheezing with some rhonchi noted especially in the upper lobes apical subsegment Cardiac: S1-S2 regular rate and rhythm Abdomen, soft nontender Extremities no clubbing cyanosis or edema Assessment & Plan 46-year-old gentleman status post buccal thermoplasty #1 severe persistent asthma: Patient is status post bronchial thermoplasty of the bilateral upper lobes which is noted to induce respiratory/asthma attacks. At this time continue current medical regimen. Today's FEV1 was 1.55L which is 88% of his preprocedural FEV1. His baseline FEV1 is 2.48 L. This FEV1 does meet criteria for discharge because the patient is mildly tachypnea can has required supplemental oxygen over the previous 18 hours we'll continue to monitor. We'll repeat bedside spirometry in the a.m. and reevaluate oxygen requirements. Data Medications: Current Inpatient Medications Medications (Trade) Dose Ordered Sig/Elza Route Start Time Stop Time Status Last Admin Dose Admin Enoxaparin Sodium (Lovenox Inj) 40 mg Q24H SC 04/16/17 21:00 05/16/17 20:59 04/16/17 20:24 40 MG Acetaminophen (Tylenol Tab) 650 mg Q4H PRN PO 04/16/17 15:30 05/16/17 15:29 Al Hydrox/Mg Hydrox/Simethicone (Maalox Max Susp) 15 ml Q4H PRN PO 04/16/17 15:30 05/16/17 15:29 Magnesium Hydroxide (Milk Of Magnesia Susp) 30 ml Q12H PRN PO 04/16/17 15:30 05/16/17 15:29 Ondansetron HCl (Zofran Inj) 4 mg Q6H PRN IV 04/16/17 15:30 05/16/17 15:29 Polyethylene (Miralax Powder Packet) 17 gm DAILY PRN PO 04/16/17 15:30 05/16/17 15:29 Glucose (Glucose 40% Gel) 15-30 GRAMS 15 GRAMS... UD PRN PO 04/16/17 15:30 05/16/17 15:29 Glucose (Glucose Chew Tab) 4-8 Tablets 4 Tabl... UD PRN PO 04/16/17 15:30 05/16/17 15:29 Dextrose (Dextrose 50% 50ML Syringe) 25-50ML OF 50% DW IV FOR... UD PRN IV 04/16/17 15:30 05/16/17 15:29 Glucagon (Glucagon Inj) 1 mg UD PRN SQ 04/16/17 15:30 05/16/17 15:29 Insulin Aspart (novoLOG ASPART) SLIDING SCALE G... ACHS SC 04/16/17 21:00 05/16/17 20:59 Albuterol (Ventolin Hfa Inhaler) 2 puffs QID PRN INH 04/16/17 15:30 05/16/17 15:29 Calcium Carbonate (Tums Chew Tab) 1,000 mg BID PO 04/16/17 21:00 05/16/17 20:59 04/17/17 07:45 1,000 MG Carbamazepine (Tegretol Tab) 200 mg BID PO 04/16/17 21:00 05/16/17 20:59 04/17/17 07:45 200 MG Salmeterol Xinafoate/ Fluticasone (Advair Diskus 500/50 Inh) 1 puff BID INH 04/16/17 21:00 05/16/17 20:59 04/17/17 07:44 1 PUFF Fluticasone Propionate (Flonase Nasal [place]) 2 sprays BID NA 04/16/17 21:00 05/16/17 20:59 04/17/17 07:44 2 SPRAYS Albuterol/ Ipratropium (Duoneb) 3 ml QIDR INH 04/16/17 20:00 05/16/17 19:59 04/17/17 11:41 3 ML Montelukast Sodium (Singulair Tab) 10 mg QPM PO 04/16/17 21:00 05/16/17 20:59 04/16/17 20:25 10 MG Pantoprazole Sodium (Protonix Tab) 40 mg QAM PO 04/17/17 09:00 05/17/17 08:59 04/17/17 07:46 40 MG Tiotropium [place] (Spiriva Handihaler Inhaler) 1 puff QPM INH 04/16/17 21:00 05/16/17 20:59 04/16/17 20:23 1 PUFF Miscellaneous Information (Order Awaiting Action) 1 ea QS N/A 04/17/17 00:00 05/17/17 00:00 Terbutaline Sulfate (Brethine Tab) 2.5 mg BID PO 04/16/17 21:00 05/16/17 20:59 04/17/17 07:46 2.5 MG Methylprednisolone Sodium Succinate 60 mg/Syringe 0.96 ml @ 1.5 mls/min Q12H IV 04/17/17 00:00 05/17/17 00:00 04/17/17 12:23 1.5 MLS/MIN Benzonatate (Tessalon Perles Cap) 100 mg TID PO 04/16/17 21:00 05/16/17 20:59 04/17/17 07:45 100 MG Miscellaneous (Iv Fluids Completed) 1 ea PRN PRN N/A 04/16/17 15:45 04/16/18 15:44 Ketorolac Tromethamine (Toradol Inj) 30 mg Q6H PRN IV 04/16/17 18:30 04/21/17 18:29 04/17/17 07:43 30 MG Tramadol HCl (Ultram Tab) 50 mg Q4H PRN PO 04/17/17 09:30 05/17/17 09:29 Morphine Sulfate (MoRPHine SULFATE INJ) 2 mg Q3H PRN IV 04/17/17 09:30 05/01/17 09:29 04/17/17 12:29 2 MG Vital Signs: Date Time Temp Pulse Resp B/P (MAP) Pulse Ox O2 Delivery O2 Flow Rate FiO2 04/17/17 11:41 84 18 97 Nasal Cannula 2.0 04/17/17 10:54 36.5 93 18 109/76 (87) 94 2.0 04/17/17 08:00 Nasal Cannula 2.0 04/17/17 07:42 36.5 83 18 113/74 (87) 98 3.0 04/17/17 07:05 81 18 100 Nasal Cannula 2.0 04/17/17 04:40 36.7 84 18 114/74 (87) 91 04/17/17 04:00 Nasal Cannula 2.0 04/17/17 00:55 36.6 98 18 124/88 (100) 95 04/17/17 00:00 Humidified Oxygen 2.0 04/16/17 20:12 36.6 98 22 124/76 (92) 97 Nasal Cannula 4.0 04/16/17 20:00 94 Nasal Cannula 2.0 04/16/17 18:41 92 111/70 (84) 96 Nasal Cannula 4.0 04/16/17 18:14 90 18 98 Room Air 04/16/17 17:35 94 20 112/73 (86) 96 4.0 04/16/17 17:01 93 109/73 (85) 91 2.0 04/16/17 16:42 36.5 89 22 123/74 97 Nasal Cannula 2.0 04/16/17 16:18 36.8 04/16/17 16:16 121/80 04/16/17 16:14 91 18 04/16/17 16:14 91 18 96 04/16/17 16:11 115/74 04/16/17 16:09 99 23 04/16/17 16:09 103 23 115/78 95 04/16/17 16:06 96/72 04/16/17 16:04 100 20 93 04/16/17 16:04 99 20 04/16/17 16:01 104/69 04/16/17 15:59 92 16 97 04/16/17 15:59 86 16 04/16/17 15:56 113/72 04/16/17 15:54 95 16 04/16/17 15:54 93 16 94 04/16/17 15:51 107/64 04/16/17 15:49 94 16 04/16/17 15:49 133 16 04/16/17 15:46 118/73 04/16/17 15:44 93 16 97 04/16/17 15:44 92 16 04/16/17 15:41 116/78 04/16/17 15:39 95 12 96 04/16/17 15:39 96 12 04/16/17 15:38 92 13 04/16/17 15:38 91 13 97 04/16/17 15:36 115/84 04/16/17 15:33 92 12 04/16/17 15:33 93 12 96 9/19/17 15:31 135/80 9/19/17 15:28 104 20 9/19/17 15:28 105 20 95 9/19/17 15:27 106 20 9/19/17 15:27 20 131/82 94 /19/17 15:22 95 15 /19/17 15:22 95 15 96 /19/17 15:17 93 15 96 19/17 15:17 95 15 04/16/17 15:16 95 13 115/64 95 19/17 15:16 96 13 04/16/17 15:11 94 12 /19/17 15:11 94 12 107/68 96 /19/17 15:06 94 12 115/70 92 //17 15:06 94 12 04/16/17 15:05 94 18 96 04/16/17 15:05 93 18 04/16/17 15:03 36.4 04/16/17 15:01 114/71 04/16/17 15:00 97 16 04/16/17 15:00 100 16 93 04/16/17 14:55 91 16 04/16/17 14:55 86 16 113/79 96 04/16/17 14:54 98 16 93 04/16/17 14:54 97 16 04/16/17 14:52 156/99 04/16/17 14:49 98 16 97 04/16/17 14:49 91 16 04/16/17 14:46 110/71 19/17 14:44 28 04/16/17 14:44 101 28 04/16/17 14:41 145/72 04/16/17 14:39 90 12 04/16/17 14:39 90 12 99 19/17 14:36 113/76 19/17 14:36 88 16 94 Mask 2.0 04/16/17 14:34 96 22 /19/17 14:34 22 /19/17 14:33 89 15 9/19/17 14:33 89 15 19/17 14:31 120/73 19/17 14:28 85 16 /19/17 14:28 16 19/17 14:26 120/67 19/17 14:23 91 17 04/16/17 14:23 88 17 93 9/19/17 14:22 87 12 93 04/16/17 14:22 85 12 04/16/17 14:21 111/68 04/16/17 14:17 91 24 04/16/17 14:17 90 24 88 04/16/17 14:16 110/73 04/16/17 14:12 91 17 93 04/16/17 14:12 92 17 04/16/17 14:11 96/88 04/16/17 14:07 86 10 04/16/17 14:07 86 10 92 04/16/17 14:06 112/79 04/16/17 14:02 86 11 97 04/16/17 14:02 86 11 04/16/17 14:01 106/81 04/16/17 13:58 84 14 04/16/17 13:58 84 14 95 04/16/17 13:56 116/81 04/16/17 13:53 91 13 04/16/17 13:53 90 13 94 04/16/17 13:51 100/91 04/16/17 13:48 88 20 04/16/17 13:48 87 20 98 04/16/17 13:46 123/89 04/16/17 13:43 83 14 04/16/17 13:43 84 14 100 04/16/17 13:38 89 18 97 04/16/17 13:38 87 18 04/16/17 13:36 120/93 04/16/17 13:33 91 20 04/16/17 13:33 90 20 97 04/16/17 13:28 90 21 97 04/16/17 13:28 91 21 04/16/17 13:26 113/67 04/16/17 13:24 132/78 04/16/17 13:23 84 16 04/16/17 13:23 36.1 87 16 132/78 99 Oxymask 10 04/16/17 13:23 84 16 99 Laboratory Results: Last 24 Hours Test 04/16/17 13:32 04/16/17 14:43 04/16/17 16:59 04/16/17 17:12 Bedside Glucose 113 mg/dl 140 mg/dl White Blood Count 11.82 K/uL Red Blood Count 4.66 M/uL Hemoglobin 14.5 g/dL Hematocrit 44.4 % Mean Corpuscular Volume 95.3 fL Mean Corpuscular Hemoglobin 31.1 pg Mean Corpuscular Hemoglobin Concent 32.7 g/dl RDW Standard Deviation 49.1 fL RDW Coefficient of Variation 14.1 % Platelet Count 218 K/uL Mean Platelet Volume 9.4 fL Prothrombin Time 10.7 SECONDS Prothromb Time International Ratio 1.0 Troponin I < 0.015 ng/ml Sodium Level 140 mmol/L Potassium Level 4.3 mmol/L Chloride Level 106 mmol/L Carbon Dioxide Level 27 mmol/L Anion Gap 7.0 mmol/L Blood Urea Nitrogen 12 mg/dl Creatinine 0.94 mg/dl Est Creatinine Clear Calc Drug Dose 122.7 ml/min Estimated GFR () 111.5 Estimated GFR (Non- 96.2 BUN/Creatinine Ratio 12.4 Random Glucose 151 mg/dl Calcium Level 8.3 mg/dl Test 04/16/17 19:59 04/17/17 05:58 04/17/17 06:43 04/17/17 11:03 Bedside Glucose 139 mg/dl 124 mg/dl 133 mg/dl White Blood Count 15.05 K/uL Red Blood Count 4.58 M/uL Hemoglobin 14.6 g/dL Hematocrit 42.7 % Mean Corpuscular Volume 93.2 fL Mean Corpuscular Hemoglobin 31.9 pg Mean Corpuscular Hemoglobin Concent 34.2 g/dl RDW Standard Deviation 46.4 fL RDW Coefficient of Variation 13.6 % Platelet Count 222 K/uL Mean Platelet Volume 9.7 fL Sodium Level 139 mmol/L Potassium Level 4.4 mmol/L Chloride Level 106 mmol/L Carbon Dioxide Level 25 mmol/L Anion Gap 8.0 mmol/L Blood Urea Nitrogen 12 mg/dl Creatinine 0.87 mg/dl Est Creatinine Clear Calc Drug Dose 132.5 ml/min Estimated GFR () 119.1 Estimated GFR (Non- 102.8 BUN/Creatinine Ratio 14.0 Random Glucose 123 mg/dl Estimated Average Glucose 151 mg/dl Hemoglobin A1c 6.9 % Calcium Level 8.8 mg/dl
[2017-04-17] MEDS: TIOTROPIUM BROMIDE 5 PUFF/90 MCG INH INH SCH (19:57)
[2017-04-17] MEDS: ENOXAPARIN 40 MG/0.4 ML SYR SC SCH (20:00)
[2017-04-17] MEDS: MONTELUKAST SOD 10 MG TAB PO SCH (21:37)
[2017-04-18] MEDS: METHYLPREDNISOLONE IV 60 MG in SYRINGE 0 ML IV SCH ×2 (00:08→12:12)
[2017-04-18] MEDS: MoRPHine SULFATE 2 MG/ML CARP IV PRN (00:08)
[2017-04-18] MEDS: KETOROLAC TROMETHAMINE 30 MG/ML VIAL IV PRN ×2 (03:50→09:29)
[2017-04-18 04:00] VITALS: BP 125/81; PULSE 80; TEMP 36.6; O2SAT 93
[2017-04-18] MEDS: INSULIN ASPART 100 UNITS/ML 3 ML PEN SC SCH ×2 (07:00→11:00)
[2017-04-18 07:28] VITALS: BP 122/73; PULSE 77; PULSE 87; TEMP 36.5; O2SAT 96; O2SAT 97
[2017-04-18] MEDS: ALBUT/IPRATROP 3MG/0.5MG NEB 3 ML VIAL INH SCH ×3 (07:28→18:57)
[2017-04-18] MEDS: PANTOprazole SOD 40 MG TAB PO SCH (09:26)
[2017-04-18] MEDS: BENZONATATE 100MG CAP PO SCH (09:26)
[2017-04-18] MEDS: FLUTICASONE/SALMETEROL (ADVAIR) 500/50 INH 14 PUFF INH SCH (09:26)
[2017-04-18] MEDS: FLUTICASONE PROPIONATE NA SPR 16 GM BTL SCH (09:26)
[2017-04-18] MEDS ORDERED: ONDANSETRON 4MG OD TAB PO PRN (10:30)
[2017-04-18 11:03] VITALS: BP 107/63; PULSE 79; TEMP 36.7; O2SAT 94
[2017-04-18 11:13] VITALS: PULSE 89; O2SAT 98
[2017-04-18] MEDS: CARBAMAZEPINE 200 MG TAB PO SCH (12:10)
[2017-04-18] MEDS: TERBUTALINE SULFATE 5 MG TAB PO SCH (12:10)
[2017-04-18] MEDS: CALCIUM CARBONATE 500 MG CHEWABLE PO SCH (12:16)
[2017-04-18] MEDS: TRAMADOL HCL 50 MG TAB PO PRN ×2 (12:21→15:47)
[2017-04-18] MEDS ORDERED: KETO10TA PO (12:36)
[2017-04-18] MEDS ORDERED: PRED10TA PO (12:36)
[2017-04-18] MEDS ORDERED: BENZ100C7 PO (12:36)
--- NOTE | 2017-04-18 12:41 | Discharge Instructions ---
Discharge Instructions Date of Service Apr 18, 2017. Admission Reason for Admission: Severe Asthma Discharge Discharge Diagnosis / Problem: Severe Persistent Asthma S/P Thermoplasty Bronchoscopy Discharge Goals Goal(s): Decrease discomfort, Improve function, Increase independence Activity Recommendations Activity Level: Up Ad Rhonda . Additional Information Patient informed of condition: Yes Advance Directives: No DNR: No Level of Care: Other ([facility]) Communicable Disease: No Prognosis: Stable Instructions / Follow-Up Instructions / Follow-Up Severe Persistent Asthma S/P Bronchoscopy with Thermoplasty on 04/16: - Continue previously prescribed breathing treatments and inhalers - Continue Prednisone 50 mg daily. As per gum machine operator Dr. Fitzpatrick, continue this dose until follow-up in 1 week. - Continue Toradol 10 mg every 6 hours as needed only for next 3 days and Toradol given in hospital x 2 days. Can use Tylenol as needed for pain and follow instructed dosing on package Follow-Up: - Will need to see Dr. Fitzpatrick in 1 week. Continue Prednisone 50 mg daily until follow-up Current Hospital Diet Patient's current hospital diet: Diabetes Type 2 Diet Discharge Diet Recommended Diet: Diabetes Type 2 Diet Procedures Procedures Performed: Flexible bronchoscopy, bronchial alveolar lavage, bronchial thermoplasty Pending Studies Studies pending at discharge: no Laboratory Results Hemoglobin A1c Test 04/17/17 05:58 Range/Units Estimated Average Glucose 151 mg/dl Hemoglobin A1c 6.9 H 4.5-5.6 % Medical Emergencies . Who to Call and When: Medical Emergencies: If at any time you feel your situation is an emergency, please call 911 immediately. . Non-Emergent Contact Non-Emergency issues call your: Primary Care Provider Call Non-Emergent contact if: you have a fever, your pain is concerning you, you have any medication questions . . "Provider Documentation" section prepared by Tracy Reddy. . Core Measure Problem Core Measures: None
[2017-04-18 13:03] VITALS: BP 107/63; PULSE 89; TEMP 36.7; O2SAT 98
--- NOTE | 2017-04-18 14:41 | Discharge Summary ---
Discharge Summary Date of Service Apr 18, 2017. Discharge Summary Admission Date: Apr 16, 2017 at 15:38 Discharge Date: Apr 18, 2017 Discharge Disposition: Home ([facility]al Facility) Principal Diagnosis: Severe Persistent Asthma S/P Bronchoscopy with Thermoplasty Problems/Secondary Diagnoses: 1. Severe Persistent Asthma 2. T2DM 3. Seizure Disorder 4. OA 5. GERD Procedures: SINGLE VIEW CHEST FINDINGS: An AP, portable, upright chest radiograph is compared to study dated 03/22/2017. The examination is degraded by portable technique and patient rotation. The cardiomediastinal silhouette is unremarkable. There is prominence of the pulmonary vasculature. Fluid is noted along the right minor fissure. Subtle opacities are present within the left lateral lung. No pneumothorax is seen. The bony thorax is grossly intact. IMPRESSION: 1. There is prominence of the pulmonary vasculature and trace fluid along the right minor fissure. Correlate clinically for evidence of mild congestive change. 2. Subtle opacities are present within the left lung. Clinically for evidence of an inflammatory pneumonitis or possibly mild edema. Consultations: 1. Pulmonology Medication Reconciliation New Medications: Ketorolac Tromethamine (Toradol) 10 Mg Tab 1 TAB PO Q6H PRN for Pain for 3 Days, #12 TAB Only take for next 3 days if needed. Benzonatate (Benzonatate) 100 Mg Cap 100 MG PO TID for 7 Days, #21 CAP Changed Medications: Prednisone Tab (Prednisone) 10 Mg Tab 50 MG PO DAILY for 14 Days, #70 TAB (Changed from: 10 MG; UD; Removed Instructions) Continued Medications: Albuterol Hfa (Ventolin Hfa) 200 Puffs/32000 Mcg Aers 2 PUFFS INH QID PRN for WHEEZING, #1 INHALER Alendronate Sodium (Alendronate Sodium) 70 Mg Tab 70 MG PO WK Calcium Carbonate (Tums) 500 Mg Chew 2 TABS PO BID Carbamazepine (Tegretol) 200 Mg Tab 200 MG PO BID, TAB Ciclesonide (Alvesco) 160 Mcg/Act Aer 1 PUFF INH BID Fluticasone Prop/Salmeterol (Advair Diskus 500/50 60 Dose) 1 Ea Aerp 1 PUFFS INH BID for 30 Days, #1 INHALER 5 Refills Fluticasone Propionate (Nasal) (Flonase Allergy Relief) 50 Mcg/Act Spr 2 SPRAY INH BID Insulin Human Regular (Humulin R) 100 Units/Ml Susp UD SLIDING SCALE UD Ipratropium-Albuterol (Duoneb) 3 Ml Nebu 1 TREATMENT INH QID, INHA Montelukast Sodium (Singulair) 10 Mg Tab 10 MG PO QAM, TAB Pantoprazole (Protonix) 40 Mg Tab 40 MG PO QAM, #30 TAB Terbutaline Sulfate (Terbutaline Sulfate) 2.5 Mg Tab 2.5 MG PO BID Tiotropium [place] (Spiriva Handihaler) 30 Puff/540 Mcg Aerp 1 CAP INH QPM for 30 Days, CAP 3 Refills Discharge Exam Review of Systems: Constitutional: + chills, No fever Respiratory: + cough, + sputum, + dyspnea on exertion, + dyspnea at rest Cardiovascular: + chest pain, No palpitations Abdomen: No pain, No nausea, No vomiting, No diarrhea, No constipation Musculoskeletal: No swelling, No calf pain Genitourinary - Male: No dysuria Hematologic / Lymphatic: No abnormal bleeding/bruising Integumentary: No rash Physical Exam: General Appearance: WD/WN, no apparent distress (intermittent distress ( respiratory)) Eyes: sclerae normal ENT: hearing grossly normal Neck: supple, no JVD, trachea midline Respiratory/Chest: no accessory muscle use, + respiratory distress (mild - intermittent), + wheezing (expiratory) Cardiovascular: regular rate, rhythm, no gallop, no murmur Abdomen / GI: normal bowel sounds, non tender, soft Extremities: no calf tenderness, no pedal edema Neurologic/Psychiatric: alert, oriented x 3 Skin: normal color, warm/dry Hospital Course ADMISSION: This is a 46 y/o male with a history of severe persistent asthma, DM II, seizure disorder, osteoporosis and GERD who presents s/p bronchoscopy and thermoplasty with Dr. Fitzpatrick for admission. The patient has severe asthma with fully maximized medical therapy. Today the patient had his third and final bronchoscopy and thermoplasty procedure done. The patient now presents for admission for overnight observation due to concern for bronchospasm. The patient complains of wheezing, shortness of breath and a non-productive cough. He complains of chills although he has been afebrile and complains of a 9/10 aching chest pain located in the middle of his chest and over his left ribs which is worse with deep breaths and coughing. He has not yet eaten, urinated, passed gas or had a bowel movement following the procedure. The patient denies fevers, sweats, palpitations, claudication, nausea, vomiting, abdominal pain, dysuria, hematuria, urinary retention, paralysis, weakness, numbness and tingling. HOSPITAL COURSE: Mr. Serra was admitted for bronchospasm associated with S/ P bronchoscopy with thermoplasty by Dr. Fitzpatrick on 04/16. Imaging suggests a resultant pneumonitis. He was placed on IV steroids with oral conversion to Prednisone 50 mg daily until follow-up with Dr. Fitzpatrick. Multiple FEV1s performed but patient effort was limited. Patient noted to be in no respiratory distress when unaware of monitoring but would exhibit more signs of distress when entering the room which improved when distracted by other tasks. He has adequate air flow with improvement from yesterdays exam. Continues to have expiratory wheezing but adequate oxygenating on room air. He is optimal for D/C to [facility] with outpatient follow-up. Total Time Spent: Greater than 30 minutes This includes examination of the patient, discharge planning, medication reconciliation, and communication with other providers. Discharge Instructions Please refer to the electronic Patient Visit Report (Discharge Instructions) for additional information. Additional Copies To Ruy CARREON
[2017-04-18 15:09] VITALS: BP 117/80; PULSE 81; TEMP 36.7; O2SAT 95
== END 2017-04-18 18:15 | disposition home or self-care (01) ==
LOC: C.ACU 10:11 → C.2E 15:38 → ENRESERV 16:08
PROVIDERS: ADMIT Hospitalist; ATTEND Internal Medicine
DX: J45.909 Unspecified asthma, uncomplicated (principal); E11.9 Type 2 diabetes mellitus without complications; G40.909 Epilepsy, unspecified, not intractable, without status epilepticus; K21.9 Gastro-esophageal reflux disease without esophagitis; M19.90 Unspecified osteoarthritis, unspecified site; M81.0 Age-related osteoporosis without current pathological fracture; Z79.4 Long term (current) use of insulin; Z79.52 Long term (current) use of systemic steroids; Z83.3 Family history of diabetes mellitus; Z80.1 Family history of malignant neoplasm of trachea, bronchus and lung

== ENCOUNTER 2017-08-22 22:09 | Inpatient (IN) | payer OTHER ==
[~2017-08-22] VITALS: Ht 188 cm; Wt 103.9 kg
[~2017-08-22 22:09] MED LIST changes: +BENZ100C7 PO; -BISM262S7 PO; -CEFAZOLIN 2000 MG/60 ML D5W IV SCH; -LACTATED RINGER'S 1000ML 1,000 ML IV SCH; -TERB2.5T2 PO; +[UNRECOGNIZED DRUG - CODE] PO
[2017-08-23] VITALS (15 sets, daily range): BP systolic 119–146; BP diastolic 53–84; PULSE 30–109; TEMP 36.4–37.1; O2SAT 91–98; Ht 188 cm; Wt 103.9 kg
[2017-08-23] MEDS ORDERED: METHYLPREDNISOLONE 125 MG VIAL IV STA (00:20)
[2017-08-23] MEDS ORDERED: ALBUT/IPRATROP 3MG/0.5MG NEB 3 ML VIAL INH STA (00:25)
[2017-08-23] MEDS ORDERED: METHYLPREDNISOLONE 125 MG in SYRINGE 0 ML IV STA (00:25)
[2017-08-23] MEDS ORDERED: POLYETHYLENE (MIRALAX) 17 GM PACK PO PRN (00:30)
[2017-08-23] MEDS ORDERED: ALUMINUM/MAGNESIUM/SIMETH (MAALOX MAX) 30 ML UDC PO PRN (00:30)
[2017-08-23] MEDS ORDERED: MoRPHine SULFATE 2 MG/ML CARP IV PRN (00:30)
[2017-08-23] MEDS ORDERED: MAGNESIUM HYDROXIDE SUSP 30 ML UDC PO PRN (00:30)
[2017-08-23] MEDS ORDERED: ONDANSETRON INJ 2 MG/ML 2 ML VIAL IV PRN (00:30)
[2017-08-23] MEDS ORDERED: NITROGLYCERIN 0.4 MG SL PER TAB CHARGE SL PRN (00:30)
[2017-08-23 00:59] LABS: BASO ABS # 0.01 K/uL (0-0.2); EOS ABS # 0.01 K/uL (0-0.5); HEMATOCRIT 41.1 % (42-52); HEMOGLOBIN 14.1 g/dL (14.0-18.0); IG# 0.19 K/uL (0.00-0.02); LYMPH % 5.3 %; LYMPH ABS # 1.17 K/uL (1.2-3.4); MEAN CELL VOLUME 93.8 fL (80-100); MEAN CORPUSCULAR HEMOGLOBIN 32.2 pg (25-34); MEAN PLATELET VOLUME 9.5 fL (7.4-10.4); MONO % 3.9 %; MONO ABS # 0.86 K/uL (0.11-0.59); NEUT % 89.9 %; NEUT ABS # 19.68 K/uL (1.4-6.5); PLATELET COUNT 199 K/uL (130-400); RED CELL DISTRIBUTION WIDTH SD 47.5 fL (36.4-46.3); WHITE BLOOD COUNT 21.92 K/uL (4.8-10.8)
[2017-08-23 01:10] LABS: PTT PATIENT 24.9 SECONDS (21.0-31.0)
[2017-08-23 01:23] LABS: BLOOD UREA NITROGEN 13 mg/dl (7-18); CARBON DIOXIDE 25 mmol/L (21-32); CREATININE 1.04 mg/dl (0.60-1.40); GLUCOSE 222 mg/dl (70-99); POTASSIUM 4.1 mmol/L (3.5-5.1); SODIUM 136 mmol/L (136-145)
[2017-08-23 01:24] LABS: ALBUMIN 3.5 gm/dl (3.4-5.0); ALKALINE PHOSPHATASE 71 U/L (45-117); ALT/SGPT 31 U/L (12-78); AST/SGOT 10 U/L (15-37); CALCIUM 8.2 mg/dl (8.5-10.1); MEAN CORPUSCULAR HGB CONC 34.3 g/dl (32-36); TOTAL PROTEIN 6.9 gm/dl (6.4-8.2)
[2017-08-23] MEDS ORDERED: SALI0.658 NAE (01:29)
[2017-08-23] MEDS ORDERED: [UNRECOGNIZED DRUG - CODE] IM (01:29)
[2017-08-23] MEDS ORDERED: PRED20TA PO (01:29)
[2017-08-23] MEDS ORDERED: PRD/25 PO (01:29)
[2017-08-23] MEDS ORDERED: GUAISYP4 PO (01:29)
[2017-08-23] MEDS ORDERED: METF-384 PO (01:29)
[2017-08-23] MEDS ORDERED: INSU1INJ SC (01:29)
[2017-08-23] MEDS ORDERED: LVQ/500 (01:29)
[2017-08-23] MEDS ORDERED: [UNRECOGNIZED DRUG - CODE] PO (01:29)
[2017-08-23] MEDS ORDERED: ERGO50002 (01:29)
[2017-08-23] MEDS ORDERED: MULT-506 PO (01:29)
[2017-08-23] MEDS ORDERED: VANCOMYCIN INJ 1,000 MG in SODIUM CHLORIDE 0.9% 250ML 250 ML IV ONE (01:39)
[2017-08-23] MEDS ORDERED: PIPERACILL/TAZOBAC IV 3.375 GM in DEXTROSE 5% 100ML 100 ML IV ONE (01:39)
[2017-08-23] MEDS ORDERED: PIPERACILL/TAZOBAC CONSULT ACTIVE PRN ×2 (01:45)
[2017-08-23] MEDS ORDERED: SODIUM CHLORIDE 0.65% NA SOLN 45 ML (OCEAN) NAE PRN (01:45)
[2017-08-23] MEDS ORDERED: VANCOMYCIN CONSULT ACTIVE PRN ×2 (01:45)
[2017-08-23] MEDS ORDERED: INSULIN GLARGINE SOLOSTAR 100 UNITS/ML 3 ML PEN SC STA (01:55)
[2017-08-23] MEDS ORDERED: VANCOMYCIN INJ 2,500 MG in SODIUM CHLORIDE 0.9% 500ML 500 ML IV SCH (02:00)
[2017-08-23] MEDS ORDERED: KETOROLAC TROMETHAMINE 30 MG/ML VIAL IV. PRN (02:15)
[2017-08-23] MEDS: SODIUM CHLORIDE 0.9% 1000ML 1,000 ML IV SCH ×2 (02:16→07:20)
[2017-08-23 02:25] LABS: INFLUENZA A PCR Neg for Influ A (NEG); INFLUENZA B PCR Neg for Influ B (NEG)
[2017-08-23] MEDS: ALBUT/IPRATROP 3MG/0.5MG NEB 3 ML VIAL INH SCH ×6 (04:25→23:21)
[2017-08-23] MEDS: DiphenhydrAMINE HCL 50 MG/ML VIAL IV PRN ×2 (04:49→09:29)
[2017-08-23] MEDS: ACETAMINOPHEN IV 1,000 MG in EMPTY BAG 0 ML IV SCH ×2 (04:49→12:21)
--- NOTE | 2017-08-23 05:35 | History and Physical ---
History & Physical Date & Time of Service: Aug 23, 2017 at 05:28 Chief Complaint: Acute Asthma Exacerbation Primary Care Physician: Griffin Ramos M.D. History of Present Illness Source: patient, hospital records This is a 46 yo m with a h/o severe asthma that presents to us from [facility] for acute asthma exacerbation and hypoxic respiratory failure. [facility] he started to develop achiness, diaphoresis and worsening SOB. The patient was tested for influenza apparently x 2 however both testing were negative. He continued to develop worsening symptoms until he started to develop O2 requirement. He received a nebulizer at the [facility] and Cefepime, Azithro and vanc prior to arrival. The patient arrives with an O2 req of 4L and ongoing wheezing/ SOB. He denies the development of a productive cough but recently had a decrease in his 70 mg of prednisone to 67.5 mg and he notes that every time he tries to wean he has an exacerbation. Denies chest pain, abdominal pain dysuria or headache. Past Medical/Surgical History Asthma severe steroid induced DM GERD Mood disorder Family History Diabetes mellitus Lung cancer Seizures Social History Smoking Status: Never Smoker Smokeless Tobacco Use: No Alcohol Use: none Drug Use: none Housing status: other Occupational Status: other Immunizations History of Influenza Vaccine: Unknown History of Tetanus Vaccine?: Unknown History of Pneumococcal: Unknown History of Hepatitis B Vaccine: Unknown Multi-Drug Resistant Organisms History of MDRO: No Allergies Coded Allergies: No Known Allergies (Unverified , 03/22/17) Home Medications Scheduled Alendronate Sodium (Alendronate Sodium), 70 MG PO DAILY Calcium Carbonate (Tums), 2 TABS PO BID Carbamazepine (Tegretol), 200 MG PO BID Ergocalciferol (Drisdol), 1 CAP MWF Fluticasone Prop/Salmeterol (Advair Diskus 500/50 60 Dose), 1 PUFFS INH BID Fluticasone Propionate (Nasal) (Flonase Allergy Relief), 2 SPRAY INH BID Guaifenesin/Codeine (Robitussin-Ac Syrup), 10 ML PO QID Insulin Human Regular (Humulin R), UD Insulin Isophan/Regular (Humulin 70/30), 3 UNITS SC BIDM Ipratropium-Albuterol (Duoneb), 1 TREATMENT INH QID Levofloxacin (Levofloxacin), 500 MG DAILY Metformin Hcl (Glucophage), 1,000 MG PO BID Methylprednisolone Acetate (Depo-Medrol), 40 MG IM DAILY Montelukast Sodium (Singulair), 10 MG PO QAM Multivitamin (Multivitamin), 1 TAB PO DAILY Pantoprazole (Protonix), 40 MG PO QAM Prednisone (Prednisone), 7.5 MG PO DAILY Prednisone (Prednisone), 60 MG PO DAILY Terbutaline Sulfate (Terbutaline Sulfate), 2.5 MG PO BID Tiotropium [place] (Spiriva Handihaler), 1 CAP INH QPM Scheduled PRN Albuterol Hfa (Ventolin Hfa), 2 PUFFS INH QID PRN for WHEEZING Bismuth Subsalicylate (Bismatrol), 524 MG PO QID PRN for Dyspepsia Saline (Bergholz Nasal Drops), 2 DROPS ELINA QID PRN for DRYNESS Review of Systems Constitutional: + chills, + sweats, + fatigue, No fever, No weight loss, No weakness Eyes: No worsening of vision ENT: No hearing loss Respiratory: + wheezing, + shortness of breath, + dyspnea on exertion, + dyspnea at rest, No cough, No sputum, No hemoptysis Cardiovascular: No chest pain, No palpitations Abdomen: No pain, No nausea, No vomiting, No diarrhea, No constipation, No GI bleeding Musculoskeletal: + muscle pain, No joint pain Genitourinary - Male: No hematuria, No dysuria Neurologic: + weakness, No numbness/tingling, No balance problems Psychiatric: + anxiety, No depression symptoms Endocrine: + fatigue Hematologic / Lymphatic: No abnormal bleeding/bruising Integumentary: No rash Physical Exam Vital Signs Date Time Temp Pulse Resp B/P (MAP) Pulse Ox O2 Delivery O2 Flow Rate FiO2 08/23/17 04:26 93 20 95 Nasal Cannula 4.0 08/23/17 04:00 Nasal Cannula 4.0 08/23/17 03:17 36.7 100 20 146/53 (84) 92 3.0 08/23/17 00:51 82 16 93 Nasal Cannula 4.0 08/23/17 00:34 37.1 30 30 119/78 96 Nasal Cannula 4.0 General Appearance: no apparent distress Head: normocephalic, atraumatic Eyes: normal inspection ENT: normal ENT inspection Neck: supple Respiratory/Chest: + decreased breath sounds (throughout), + accessory muscle use, + pertinent finding (coarse breath sounds throughout with exp wheezing, short expiratory phase ) Cardiovascular: no murmur, normal peripheral pulses, + tachycardia Abdomen/GI: normal bowel sounds, non tender, soft Back: normal inspection, no CVA tenderness, normal range of motion Extremities/Musculoskelatal: normal inspection, no calf tenderness, no pedal edema, normal range of motion Neurologic/Psych: alert, oriented x 3, + pertinent finding (anxious) Skin: normal color, warm/dry, no rash Lymphatic: no adenopathy Diagnostics Laboratory Results Results Past 24 Hours Test 08/23/17 00:40 08/23/17 00:46 08/23/17 01:30 08/23/17 04:15 Range/Units Bedside Glucose 233 70-99 mg/dl White Blood Count 21.92 4.8-10.8 K/uL Red Blood Count 4.38 4.7-6.1 M/uL Hemoglobin 14.1 14.0-18.0 g/dL Hematocrit 41.1 42-52 % Mean Corpuscular Volume 93.8 80-100 fL Mean Corpuscular Hemoglobin 32.2 25-34 pg Mean Corpuscular Hemoglobin Concent 34.3 32-36 g/dl Platelet Count 199 130-400 K/uL Mean Platelet Volume 9.5 7.4-10.4 fL Neutrophils (%) (Auto) 89.9 % Lymphocytes (%) (Auto) 5.3 % Monocytes (%) (Auto) 3.9 % Eosinophils (%) (Auto) 0.0 % Basophils (%) (Auto) 0.0 % Neutrophils # (Auto) 19.68 1.4-6.5 K/uL Lymphocytes # (Auto) 1.17 1.2-3.4 K/uL Monocytes # (Auto) 0.86 0.11-0.59 K/uL Eosinophils # (Auto) 0.01 0-0.5 K/uL Basophils # (Auto) 0.01 0-0.2 K/uL RDW Standard Deviation 47.5 36.4-46.3 fL RDW Coefficient of Variation 14.0 11.5-14.5 % Immature Granulocyte % (Auto) 0.9 % Immature Granulocyte # (Auto) 0.19 0.00-0.02 K/uL Prothrombin Time 10.6 9.0-12.0 SECONDS Prothromb Time International Ratio 1.0 0.9-1.1 Activated Partial Thromboplast Time 24.9 21.0-31.0 SECONDS Partial Thromboplastin Ratio 1.0 Arterial Blood pH 7.43 7.35-7.45 Arterial Blood Partial Pressure CO2 38 35-46 mmHg Arterial Blood Partial Pressure O2 79 80-95 mm/Hg Arterial Blood HCO3 25 19-24 mmol/L Arterial Blood Oxygen Saturation 95.3 90-95 % Arterial Blood Base Excess 0.5 -9-1.8 mEq/L Arterial Blood Gas Delivery 4L Chaitanya Test POS POS Sodium Level 136 136-145 mmol/L Potassium Level 4.1 3.5-5.1 mmol/L Chloride Level 105 98-107 mmol/L Carbon Dioxide Level 25 21-32 mmol/L Anion Gap 6.0 3-11 mmol/L Blood Urea Nitrogen 13 7-18 mg/dl Creatinine 1.04 0.60-1.40 mg/dl Est Creatinine Clear Calc Drug Dose 112.9 ml/min Estimated GFR () 98.6 Estimated GFR (Non- 85.1 BUN/Creatinine Ratio 12.9 10-20 Random Glucose 222 70-99 mg/dl Lactic Acid Level 1.9 0.4-2.0 mmol/L Calcium Level 8.2 8.5-10.1 mg/dl Total Bilirubin 0.3 0.2-1 mg/dl Aspartate Amino Transf (AST/SGOT) 10 15-37 U/L Alanine Aminotransferase (ALT/SGPT) 31 12-78 U/L Alkaline Phosphatase 71 45-117 U/L Troponin I < 0.015 0-0.045 ng/ml Total Protein 6.9 6.4-8.2 gm/dl Albumin 3.5 3.4-5.0 gm/dl Globulin 3.4 2.5-4.0 gm/dl Albumin/Globulin Ratio 1.0 0.9-2 Procalcitonin 0.10 0-0.5 ng/ml Influenza Type A (RT-PCR) Neg for Influ A NEG Influenza Type B (RT-PCR) Neg for Influ B NEG Urine Color YELLOW Urine Appearance CLEAR CLEAR Urine pH 6.0 4.5-7.[address] 1.030 1.000-1.030 Urine Protein NEG NEG Urine Glucose (UA) 3+ NEG Urine Ketones TRACE NEG Urine Occult Blood 2+ NEG Urine Nitrite NEG NEG Urine Bilirubin NEG NEG Urine Urobilinogen NEG NEG Urine Leukocyte Esterase NEG NEG Urine WBC (Auto) 1-5 0-5 /hpf Urine RBC (Auto) 10-30 0-4 /hpf Urine Hyaline Casts (Auto) 0 0-5 /lpf Urine Epithelial Cells (Auto) 0-5 0-5 /lpf Urine Bacteria (Auto) NEG NEG Microbiology Results 08/23/17 Blood Culture, Received Pending 08/23/17 Blood Culture, Received Pending 08/23/17 MRSA DNA Surveillance Screen - Final, Complete Specimen Negative for MRSA by DNA Probe Diagnostic Radiology CXR reveals no acute findings however questionable LLL consolidation EKG Normal sinus rhythm Voltage criteria for left ventricular hypertrophy Abnormal ECG When compared with ECG of 18-APR-2017 06:51, No significant change was found HR 82 Impression Assessment and Plan This is a 46 yo m suffering from an acute asthma exacerbation leading to acute hypoxic respiratory failure Acute hypoxic resp failure secondary to viral vs bacterial infection ( pna) in the presence of severe asthma - tele admission - consult pulmonary - Methylpred 125 mg IV followed by 60 mg tid - Zosyn and vanco as coming from intermediate - Duoneb yohana - incen matty and vibration vest - spiriva, advair and terbutaline cont - singulair cont DMII - metformin held - insulin 5 units bid lantus with insulin ISS GERD - continue protonix Seizure disorder - continue carbamazepine Dvt prophy scd and heparin FULL CODE Attending addendum: I have physically seen this patient, have supervised the medical residents activities, and agree with the H&P unless as otherwise noted. Assessment and Plan: Acute respiratory failure with hypoxia/acute asthma exacerbation/left lower lobe pneumonia-- Admits to the telemetry unit for close oxygen monitoring Solu-Medrol 125 mg IV now followed by 60 mg IV every 8 h Vancomycin IV and Zosyn IV Duonebs every 4 hours while awake and every 2 hours when necessary. Continue Spiriva, Advair, Singulair and terbutaline Consult pulmonology, has required bronchoscopy in the past Diabetes mellitus-- Hold metformin Continue Lantus 5 units subcutaneous twice a day Place on Accu-Cheks before meals and at bedtime with NovoLog coverage per scale We will need to follow closely while on IV Solu-Medrol as above Seizure disorder-- Continue carbamazepine GERD-- Continue pantoprazole Level of Care Telemetry Advanced Directives Existing Advance Directive: No Existing Living Will: No Existing Power of Unit Secretary: No Resuscitation Status FULL RESUSCITATION VTE Prophylaxis VTE Risk Assessment Done? Y/N: Yes Risk Level: Moderate Given or contraindicated: Unfractionated heparin SQ, SCD's Social Service Consult None Apply Additional Copies To Ruy CARREON
--- NOTE | 2017-08-23 06:36 | DIAGNOSTIC IMAGING REPORT ---
CHEST ONE VIEW PORTABLE CLINICAL HISTORY: hypoxia dyspnea COMPARISON STUDY: 04/16/2017 FINDINGS: Subsegmental atelectasis left base. Mild prominence of basilar interstitial markings considered chronic. Upper lungs are clear. Diaphragms are smooth. IMPRESSION: Mild left basilar subsegmental atelectasis. Chronic basilar interstitial change. The above report was generated using voice recognition software. It may contain grammatical, syntax or spelling errors. Electronically signed by: Luis Angel Taylor M.D. 08/23/2017 6:34 AM Dictated Date/Time: 08/23/2017 6:33 AM
--- NOTE | 2017-08-23 06:58 | Family Medicine Progress Note ---
Progress Note Date of Service Aug 23, 2017. Subjective Pt evaluation today including: conversation w/ patient, physical exam, chart review, lab review, review of studies, conversation w/ devops consultant, review of inpatient medication list Patient states he was feeling unwell for a week, but only experienced dyspnea with a drop in saturations yesterday. Currently, he states he has ongoing chest tightness and difficulty breathing. He denies cardiac symptoms, but he admits to a long standing history of orthopnea and PND. He had asthma as a child and continues to use albuterol 2-3x nightly, despite a 70mg prednisone dose and compliance with all his home inhalers. He is subjectively feeling feverish, although he has had no documented fevers since admission. He otherwise denies headaches, abdominal pain, lower extremity swelling or rashes. He is tolerating diet without nausea or vomiting, he states he is ambulating without exacerbating symptoms - although sometimes activity can exacerbate symptoms. He is voiding and stooling appropriately. ROS is unremarkable except as noted above. Objective Vital Signs Date Time Temp Pulse Resp B/P (MAP) Pulse Ox O2 Delivery O2 Flow Rate FiO2 08/23/17 04:26 93 20 95 Nasal Cannula 4.0 08/23/17 04:00 Nasal Cannula 4.0 08/23/17 03:17 36.7 100 20 146/53 (84) 92 3.0 08/23/17 00:51 82 16 93 Nasal Cannula 4.0 08/23/17 00:34 37.1 30 30 119/78 96 Nasal Cannula 4.0 Physical Exam General Appearance: WD/WN, no apparent distress Eyes: normal inspection ENT: hearing grossly normal, pharynx normal, + pertinent finding (NC in situ - on 4 L O2) Neck: supple, no adenopathy, no carotid bruits Respiratory/Chest: no respiratory distress, no accessory muscle use, + rhonchi ((improved on subsequent assessment mid day)), + wheezing (expiratory, mild, diffuse), + pertinent finding (end expiration stridor) Cardiovascular: regular rate, rhythm, no JVD, no murmur Abdomen: normal bowel sounds, non tender, soft Extremities: normal inspection, no pedal edema, no calf tenderness Neurologic/Psychiatric: alert, normal mood/affect, oriented x 3 Skin: normal color, warm/dry, no rash Laboratory Results Results Past 24 Hours Test 08/23/17 00:40 08/23/17 00:46 08/23/17 01:30 08/23/17 04:15 Range/Units Bedside Glucose 233 70-99 mg/dl White Blood Count 21.92 4.8-10.8 K/uL Red Blood Count 4.38 4.7-6.1 M/uL Hemoglobin 14.1 14.0-18.0 g/dL Hematocrit 41.1 42-52 % Mean Corpuscular Volume 93.8 80-100 fL Mean Corpuscular Hemoglobin 32.2 25-34 pg Mean Corpuscular Hemoglobin Concent 34.3 32-36 g/dl Platelet Count 199 130-400 K/uL Mean Platelet Volume 9.5 7.4-10.4 fL Neutrophils (%) (Auto) 89.9 % Lymphocytes (%) (Auto) 5.3 % Monocytes (%) (Auto) 3.9 % Eosinophils (%) (Auto) 0.0 % Basophils (%) (Auto) 0.0 % Neutrophils # (Auto) 19.68 1.4-6.5 K/uL Lymphocytes # (Auto) 1.17 1.2-3.4 K/uL Monocytes # (Auto) 0.86 0.11-0.59 K/uL Eosinophils # (Auto) 0.01 0-0.5 K/uL Basophils # (Auto) 0.01 0-0.2 K/uL RDW Standard Deviation 47.5 36.4-46.3 fL RDW Coefficient of Variation 14.0 11.5-14.5 % Immature Granulocyte % (Auto) 0.9 % Immature Granulocyte # (Auto) 0.19 0.00-0.02 K/uL Prothrombin Time 10.6 9.0-12.0 SECONDS Prothromb Time International Ratio 1.0 0.9-1.1 Activated Partial Thromboplast Time 24.9 21.0-31.0 SECONDS Partial Thromboplastin Ratio 1.0 Arterial Blood pH 7.43 7.35-7.45 Arterial Blood Partial Pressure CO2 38 35-46 mmHg Arterial Blood Partial Pressure O2 79 80-95 mm/Hg Arterial Blood HCO3 25 19-24 mmol/L Arterial Blood Oxygen Saturation 95.3 90-95 % Arterial Blood Base Excess 0.5 -9-1.8 mEq/L Arterial Blood Gas Delivery 4L Chaitanya Test POS POS Sodium Level 136 136-145 mmol/L Potassium Level 4.1 3.5-5.1 mmol/L Chloride Level 105 98-107 mmol/L Carbon Dioxide Level 25 21-32 mmol/L Anion Gap 6.0 3-11 mmol/L Blood Urea Nitrogen 13 7-18 mg/dl Creatinine 1.04 0.60-1.40 mg/dl Est Creatinine Clear Calc Drug Dose 112.9 ml/min Estimated GFR () 98.6 Estimated GFR (Non- 85.1 BUN/Creatinine Ratio 12.9 10-20 Random Glucose 222 70-99 mg/dl Estimated Average Glucose 192 mg/dl Hemoglobin A1c 8.3 4.5-5.6 % Lactic Acid Level 1.9 0.4-2.0 mmol/L Calcium Level 8.2 8.5-10.1 mg/dl Total Bilirubin 0.3 0.2-1 mg/dl Aspartate Amino Transf (AST/SGOT) 10 15-37 U/L Alanine Aminotransferase (ALT/SGPT) 31 12-78 U/L Alkaline Phosphatase 71 45-117 U/L Troponin I < 0.015 0-0.045 ng/ml Total Protein 6.9 6.4-8.2 gm/dl Albumin 3.5 3.4-5.0 gm/dl Globulin 3.4 2.5-4.0 gm/dl Albumin/Globulin Ratio 1.0 0.9-2 Procalcitonin 0.10 0-0.5 ng/ml Influenza Type A (RT-PCR) Neg for Influ A NEG Influenza Type B (RT-PCR) Neg for Influ B NEG Urine Color YELLOW Urine Appearance CLEAR CLEAR Urine pH 6.0 4.5-7.5 Urine Specific [place] 1.030 1.000-1.030 Urine Protein NEG NEG Urine Glucose (UA) 3+ NEG Urine Ketones TRACE NEG Urine Occult Blood 2+ NEG Urine Nitrite NEG NEG Urine Bilirubin NEG NEG Urine Urobilinogen NEG NEG Urine Leukocyte Esterase NEG NEG Urine WBC (Auto) 1-5 0-5 /hpf Urine RBC (Auto) 10-30 0-4 /hpf Urine Hyaline Casts (Auto) 0 0-5 /lpf Urine Epithelial Cells (Auto) 0-5 0-5 /lpf Urine Bacteria (Auto) NEG NEG Test 08/23/17 06:55 08/23/17 11:00 08/23/17 16:31 Range/Units Bedside Glucose 307 323 278 70-99 mg/dl Microbiology Results 08/23/17 Blood Culture, Received Pending 08/23/17 Blood Culture, Received Pending 08/23/17 MRSA DNA Surveillance Screen - Final, Complete Specimen Negative for MRSA by DNA Probe Assessment and Plan 46 yo m suffering from an acute asthma exacerbation leading to acute hypoxic respiratory failure Acute hypoxic resp failure secondary to viral vs bacterial infection (PNA) in the presence of severe asthma - CXR: Mild left basilar subsegmental atelectasis. Chronic basilar interstitial change. - Pulmonary consulted - patient follows with - Methylprednisone 125 mg IV loading dose given, and subsequent 40mg TID - Zosyn and vanco discontinued, and switched to azithromycin given no obvious consolidation on CXR - Duoneb scheduled, and continue home meds: Spiriva, Advair, terbutaline and Singulair - incentive matty and vibration vest advisable DMII - Metformin held - Started on Lantus 10units BID + ISS (with tight parameters) - Check BG ac/hs Seizure disorder - Continue carbamazepine GERD - Continue Protonix VTE ppx SCD and heparin Resident Physician Supervision Note: I interviewed and examined the patient. Discussed with Dr. Rizvi and agree with findings and plan as documented in the note. Any exceptions or clarifications are listed here: None Documented By: Alberto Contreras sob but gettign better faint expiratory rhonchi good air entry asthma exacerbation -exac improving nciely w steroids and atypical coverage -?chronic situation odd given 70mg chronic prednisone - will try to gather more background improving Continued [facility] stay due to: abnormal vital signs Discharge planning: other (custodial) Resident Tracking Resident Involvement: Resident Care Provided Care Provided: Adult Hospital Medicine
[2017-08-23] MEDS: PIPERACILL/TAZOBAC IV 3.375 GM in DEXTROSE 5% 100ML 100 ML IV SCH ×2 (07:20→16:07)
[2017-08-23] MEDS: FLUTICASONE PROPIONATE NA SPR 16 GM BTL SCH ×2 (07:23→20:39)
[2017-08-23] MEDS: METHYLPREDNISOLONE IV 60 MG in SYRINGE 0 ML IV SCH ×2 (07:23→12:45)
[2017-08-23] MEDS: FLUTICASONE/SALMETEROL (ADVAIR) 500/50 INH 14 PUFF INH SCH ×2 (07:23→20:39)
[2017-08-23] MEDS: TERBUTALINE SULFATE 5 MG TAB PO SCH ×2 (07:25→20:40)
[2017-08-23] MEDS: MONTELUKAST SOD 10 MG TAB PO SCH (07:26)
[2017-08-23] MEDS: CALCIUM CARBONATE 500 MG CHEWABLE PO SCH ×2 (07:26→20:41)
[2017-08-23] MEDS: MULTIVITAMIN TAB PO SCH (07:26)
[2017-08-23] MEDS: CARBAMAZEPINE 200 MG TAB PO SCH ×2 (07:27→20:40)
--- NOTE | 2017-08-23 08:56 | Pharmacy Progress Note ---
Pharmacy Antibiotic Consult Date of Service: Aug 23, 2017. Pharmacy Dosing Scope Pharmacy is consulted to initiate vancomycin and zosyn IV dosing therapy, order appropriate labs and adjust drug dose/frequency. Subjective The patient is a 46 year old male admitted on Aug 23, 2017 at 00:02. Objective Height (Feet): 6 Height (Inches): 2.00 Weight (Kilograms): 103.900 Lab Results (24hrs): Test 08/23/17 00:40 08/23/17 00:46 08/23/17 01:30 08/23/17 04:15 Bedside Glucose 233 mg/dl (70-99) White Blood Count 21.92 K/uL (4.8-10.8) Red Blood Count 4.38 M/uL (4.7-6.1) Hemoglobin 14.1 g/dL (14.0-18.0) Hematocrit 41.1 % (42-52) Mean Corpuscular Volume 93.8 fL (80-100) Mean Corpuscular Hemoglobin 32.2 pg (25-34) Mean Corpuscular Hemoglobin Concent 34.3 g/dl (32-36) Platelet Count 199 K/uL (130-400) Mean Platelet Volume 9.5 fL (7.4-10.4) Neutrophils (%) (Auto) 89.9 % Lymphocytes (%) (Auto) 5.3 % Monocytes (%) (Auto) 3.9 % Eosinophils (%) (Auto) 0.0 % Basophils (%) (Auto) 0.0 % Neutrophils # (Auto) 19.68 K/uL (1.4-6.5) Lymphocytes # (Auto) 1.17 K/uL (1.2-3.4) Monocytes # (Auto) 0.86 K/uL (0.11-0.59) Eosinophils # (Auto) 0.01 K/uL (0-0.5) Basophils # (Auto) 0.01 K/uL (0-0.2) RDW Standard Deviation 47.5 fL (36.4-46.3) RDW Coefficient of Variation 14.0 % (11.5-14.5) Immature Granulocyte % (Auto) 0.9 % Immature Granulocyte # (Auto) 0.19 K/uL (0.00-0.02) Prothrombin Time 10.6 SECONDS (9.0-12.0) Prothromb Time International Ratio 1.0 (0.9-1.1) Activated Partial Thromboplast Time 24.9 SECONDS (21.0-31.0) Partial Thromboplastin Ratio 1.0 Arterial Blood pH 7.43 (7.35-7.45) Arterial Blood Partial Pressure CO2 38 mmHg (35-46) Arterial Blood Partial Pressure O2 79 mm/Hg (80-95) Arterial Blood HCO3 25 mmol/L (19-24) Arterial Blood Oxygen Saturation 95.3 % (90-95) Arterial Blood Base Excess 0.5 mEq/L (-9-1.8) Arterial Blood Gas Delivery 4L Chaitanya Test POS (POS) Sodium Level 136 mmol/L (136-145) Potassium Level 4.1 mmol/L (3.5-5.1) Chloride Level 105 mmol/L (98-107) Carbon Dioxide Level 25 mmol/L (21-32) Anion Gap 6.0 mmol/L (3-11) Blood Urea Nitrogen 13 mg/dl (7-18) Creatinine 1.04 mg/dl (0.60-1.40) Est Creatinine Clear Calc Drug Dose 112.9 ml/min Estimated GFR () 98.6 Estimated GFR (Non- 85.1 BUN/Creatinine Ratio 12.9 (10-20) Random Glucose 222 mg/dl (70-99) Lactic Acid Level 1.9 mmol/L (0.4-2.0) Calcium Level 8.2 mg/dl (8.5-10.1) Total Bilirubin 0.3 mg/dl (0.2-1) Aspartate Amino Transf (AST/SGOT) 10 U/L (15-37) Alanine Aminotransferase (ALT/SGPT) 31 U/L (12-78) Alkaline Phosphatase 71 U/L (45-117) Troponin I < 0.015 ng/ml (0-0.045) Total Protein 6.9 gm/dl (6.4-8.2) Albumin 3.5 gm/dl (3.4-5.0) Globulin 3.4 gm/dl (2.5-4.0) Albumin/Globulin Ratio 1.0 (0.9-2) Procalcitonin 0.10 ng/ml (0-0.5) Influenza Type A (RT-PCR) Neg for Influ A (NEG) Influenza Type B (RT-PCR) Neg for Influ B (NEG) Urine Color YELLOW Urine Appearance CLEAR (CLEAR) Urine pH 6.0 (4.5-7.5) Urine Specific [place] 1.030 (1.000-1.030) Urine Protein NEG (NEG) Urine Glucose (UA) 3+ (NEG) Urine Ketones TRACE (NEG) Urine Occult Blood 2+ (NEG) Urine Nitrite NEG (NEG) Urine Bilirubin NEG (NEG) Urine Urobilinogen NEG (NEG) Urine Leukocyte Esterase NEG (NEG) Urine WBC (Auto) 1-5 /hpf (0-5) Urine RBC (Auto) 10-30 /hpf (0-4) Urine Hyaline Casts (Auto) 0 /lpf (0-5) Urine Epithelial Cells (Auto) 0-5 /lpf (0-5) Urine Bacteria (Auto) NEG (NEG) Test 08/23/17 06:55 Bedside Glucose 307 mg/dl (70-99) Micro Results: Item Value Date Time MRSA DNA Surveillance Screen - Final Complete 08/23/17 0050 Nasal Specimen Negative for MRSA by DNA Probe Blood Culture Received 08/23/17 0049 Blood Pending Blood Culture Received 08/23/17 0046 Blood Pending Assessment & Plan Patient started on vancomycin and zosyn for possible pneumonia. Patient transferred from [facility] and is an inmate. Blood cultures x 2 are pending. Vancomycin: * Per MD notes, vancomycin was ordered at outside hospital, however after talking with nurse, who confirmed in patient chart, no doses of vancomycin were given prior to transport * Was started on vancomycin 2500 mg (~24 mg/kg) x 1 this am * Will start maintenance dose of vancomycin 1250 mg (~13 mg/kg) iv q 8 hrs to achieve an estimated trough ~15-20 mcg/ml (goal for PNA) * Estimated kinetics: t1/2~8 hrs, ke~0.08 hr-1, CrCl ~100 ml/min * Will order a trough prior to the 1000 dose on 08/24 to ensure therapeutic Zosyn: * 3.375 gm iv q 8 hrs (appropriate for CrCl >20 ml/min) - no change Pharmacy will continue to follow and will adjust dose/frequency as necessary. Thank you
[2017-08-23] MEDS ORDERED: VANCOMYCIN INJ 1,000 MG in SODIUM CHLORIDE 0.9% 250ML 250 ML IV SCH (09:00)
[2017-08-23] MEDS ORDERED: HEPARIN SOD 5000 UNIT/0.5 ML CARP SQ SCH ×2 (09:00)
[2017-08-23] MEDS ORDERED: PANTOprazole SOD 40 MG TAB PO SCH (09:00)
[2017-08-23] MEDS: GUAIFENESIN/CODEINE 200MG/20MG 10ML UDC PO SCH ×4 (09:29→20:41)
[2017-08-23] MEDS: INSULIN ASPART 100 UNITS/ML 3 ML PEN SC SCH ×4 (09:34→21:00)
[2017-08-23] MEDS ORDERED: VANCOMYCIN INJ 1,250 MG in SODIUM CHLORIDE 0.9% 250ML 250 ML IV SCH (10:00)
[2017-08-23] MEDS: ALENDRONATE SODIUM 10 MG TAB PO SCH (10:52)
[2017-08-23] MEDS ORDERED: INSULIN GLARGINE SOLOSTAR 100 UNITS/ML 3 ML PEN SC ONE (11:22)
[2017-08-23 12:26] LABS: HEMOGLOBIN A1C 8.3 % (4.5-5.6)
[2017-08-23] MEDS ORDERED: AZITHROMYCIN 250 MG TAB PO ONE (16:15)
--- NOTE | 2017-08-23 17:49 | Pulmonary Consultation ---
History General Date of Service: Aug 23, 2017. Stated Complaint: Acute Asthma Exacerbation HPI The patient is a 46 year old male who presents to [facility] with complaints of Acute Asthma Exacerbation. The patient's primary care provider is Griffin Ramos M.D.. Historian: patient Onset: last week Severity: moderate Complaint Status: persistent Quality of Pain: aching Review of Systems Constitutional: reports: chills, diaphoresis, malaise Eyes: reports: no symptoms ENT: reports: rhinorrhea Cardiovascular: reports: chest pain Respiratory: reports: shortness of breath, wheezing Gastrointestinal: reports: no symptoms Musculoskeletal: reports: no symptoms Integumentary: reports: no symptoms Neurologic: reports: no symptoms Psychiatric: reports: depression Endocrine: no symptoms Past Medical History Past Medical History: Asthma, GERD, mood disorder. Past Surgical History: Bronchial thermoplasty. Family History Diabetes mellitus Lung cancer Seizures Social History Hx Tobacco Use In Past Year?: No Smoking Status: Never Smoker Housing status: other Occupational Status: other Immunizations History of Influenza Vaccine: Unknown History of Tetanus Vaccine?: Unknown History of Pneumococcal: Unknown History of Hepatitis B Vaccine: Unknown History of MDRO History of MDRO: No Allergies Coded Allergies: No Known Allergies (Unverified , 03/22/17) Current Medications Reported Home Medications Medications Dose Route/Sig Max Daily Dose Days Date Category Dose Instructions Drisdol (Ergocalciferol) 50,000 Unit Cap 1 Cap MWF 08/23/17 Reported Multivitamin (Multivitamins) Tab 1 Tab PO DAILY 08/23/17 Reported Robitussin-Ac Syrup (Codeine Phosphate/Guaifenesin) Syrp 10 Ml PO QID 4 08/23/17 Reported Prednisone 20 Mg Tab 60 Mg PO DAILY 08/23/17 Reported Prednisone 2.5 Mg Tab 7.5 Mg PO DAILY 08/23/17 Reported Depo-Medrol (Methylprednisolone Acetate) 40 Mg/Ml Inj 40 Mg IM DAILY 08/23/17 Reported Glucophage (Metformin Hcl) 1,000 Mg Tab 1,000 Mg PO BID 08/23/17 Reported Levofloxacin 500 Mg Tab 500 Mg DAILY 08/23/17 Reported Humulin 70/30 (Insulin Human Isoph/Insulin Regular) Susp 3 Units SC BIDM 08/23/17 Reported Bismatrol (Bismuth Subsalicylate) 1 Ml Susp 524 Mg PO QID PRN 08/23/17 Reported [place] Nasal Drops (Saline) 0.65 % Eduardo 2 Drops ELINA QID PRN 08/23/17 Reported Protonix (Pantoprazole Sodium) 40 Mg Tab 40 Mg PO QAM 04/04/17 Reported Singulair (Montelukast Sodium) 10 Mg Tab 10 Mg PO QAM 04/04/17 Reported Alendronate Sodium 70 Mg Tab 70 Mg PO DAILY 04/04/17 Reported Duoneb (Ipratropium-Albuterol) 3 Ml Nebu 1 Treatment INH QID 02/08/17 Reported Humulin R (Insulin Human Regular) 100 Units/Ml Susp UD 02/08/17 Reported SLIDING SCALE UD Ventolin Hfa (Albuterol) 200 Puffs/27501 Mcg Aers 2 Puffs INH QID PRN 11/05/16 Reported Terbutaline Sulfate 2.5 Mg Tab 2.5 Mg PO BID 11/05/16 Reported Spiriva Handihaler (Tiotropium [place]) 30 Puff/540 Mcg Aerp 1 Cap INH QPM 30 11/05/16 Reported Flonase Allergy Relief (Fluticasone Propionate (Nasal)) 50 Mcg/Act Spr 2 [place] INH BID 11/05/16 Reported Tegretol (Carbamazepine) 200 Mg Tab 200 Mg PO BID 11/05/16 Reported Tums (Calcium Carbonate) 500 Mg Chew 2 Tabs PO BID 11/05/16 Reported Advair Diskus 500/50 60 Dose (Fluticasone Prop/Salmeterol) 1 Ea Aerp 1 Puffs INH BID 30 11/05/16 Reported Physical Physical Exam Vital Signs: Date Time Temp Pulse Resp B/P (MAP) Pulse Ox O2 Delivery O2 Flow Rate FiO2 08/23/17 16:00 94 Nasal Cannula 4.0 08/23/17 14:58 109 20 94 Room Air 08/23/17 14:54 36.6 109 20 129/84 (99) 94 Room Air 08/23/17 12:00 Nasal Cannula 4.0 08/23/17 11:24 36.7 90 19 125/78 (94) 91 Room Air 08/23/17 11:15 96 20 92 Room Air 08/23/17 08:00 Nasal Cannula 4.0 08/23/17 07:31 36.4 77 19 123/73 (90) 98 08/23/17 07:00 82 20 94 Nasal Cannula 4.0 08/23/17 04:26 93 20 95 Nasal Cannula 4.0 08/23/17 04:00 Nasal Cannula 4.0 08/23/17 03:17 36.7 100 20 146/53 (84) 92 3.0 08/23/17 00:51 82 16 93 Nasal Cannula 4.0 08/23/17 00:34 37.1 30 30 119/78 96 Nasal Cannula 4.0 General Appearance: WELL-APPEARING, NO APPARENT DISTRESS Eyes: PERRLA, EOMI ENT: NORMAL MOUTH EXAM, NORMAL THROAT EXAM Neck: NORMAL RANGE OF MOTION, NO TENDERNESS, TRACHEA MIDLINE Respiratory: wheezing (scattered.) Cardiovasular: REGULAR RATE/RHYTHM, NORMAL S1S2, NO M/G/R Abdomen: NON TENDER, NO REBOUND, NO MASSES Upper Extremities: NO EDEMA Lower Extremities: NO EDEMA Neuro: ALERT, ORIENTED x 3, NORMAL MOTOR EXAM, NORMAL SENSATION Psychiatric: NORMAL AFFECT Diagnostics Labs Results Past 24 Hours Test 08/23/17 00:40 08/23/17 00:46 08/23/17 01:30 08/23/17 04:15 Range/Units Bedside Glucose 233 70-99 mg/dl White Blood Count 21.92 4.8-10.8 K/uL Red Blood Count 4.38 4.7-6.1 M/uL Hemoglobin 14.1 14.0-18.0 g/dL Hematocrit 41.1 42-52 % Mean Corpuscular Volume 93.8 80-100 fL Mean Corpuscular Hemoglobin 32.2 25-34 pg Mean Corpuscular Hemoglobin Concent 34.3 32-36 g/dl Platelet Count 199 130-400 K/uL Mean Platelet Volume 9.5 7.4-10.4 fL Neutrophils (%) (Auto) 89.9 % Lymphocytes (%) (Auto) 5.3 % Monocytes (%) (Auto) 3.9 % Eosinophils (%) (Auto) 0.0 % Basophils (%) (Auto) 0.0 % Neutrophils # (Auto) 19.68 1.4-6.5 K/uL Lymphocytes # (Auto) 1.17 1.2-3.4 K/uL Monocytes # (Auto) 0.86 0.11-0.59 K/uL Eosinophils # (Auto) 0.01 0-0.5 K/uL Basophils # (Auto) 0.01 0-0.2 K/uL RDW Standard Deviation 47.5 36.4-46.3 fL RDW Coefficient of Variation 14.0 11.5-14.5 % Immature Granulocyte % (Auto) 0.9 % Immature Granulocyte # (Auto) 0.19 0.00-0.02 K/uL Prothrombin Time 10.6 9.0-12.0 SECONDS Prothromb Time International Ratio 1.0 0.9-1.1 Activated Partial Thromboplast Time 24.9 21.0-31.0 SECONDS Partial Thromboplastin Ratio 1.0 Arterial Blood pH 7.43 7.35-7.45 Arterial Blood Partial Pressure CO2 38 35-46 mmHg Arterial Blood Partial Pressure O2 79 80-95 mm/Hg Arterial Blood HCO3 25 19-24 mmol/L Arterial Blood Oxygen Saturation 95.3 90-95 % Arterial Blood Base Excess 0.5 -9-1.8 mEq/L Arterial Blood Gas Delivery 4L Chaitanya Test POS POS Sodium Level 136 136-145 mmol/L Potassium Level 4.1 3.5-5.1 mmol/L Chloride Level 105 98-107 mmol/L Carbon Dioxide Level 25 21-32 mmol/L Anion Gap 6.0 3-11 mmol/L Blood Urea Nitrogen 13 7-18 mg/dl Creatinine 1.04 0.60-1.40 mg/dl Est Creatinine Clear Calc Drug Dose 112.9 ml/min Estimated GFR () 98.6 Estimated GFR (Non- 85.1 BUN/Creatinine Ratio 12.9 10-20 Random Glucose 222 70-99 mg/dl Estimated Average Glucose 192 mg/dl Hemoglobin A1c 8.3 4.5-5.6 % Lactic Acid Level 1.9 0.4-2.0 mmol/L Calcium Level 8.2 8.5-10.1 mg/dl Total Bilirubin 0.3 0.2-1 mg/dl Aspartate Amino Transf (AST/SGOT) 10 15-37 U/L Alanine Aminotransferase (ALT/SGPT) 31 12-78 U/L Alkaline Phosphatase 71 45-117 U/L Troponin I < 0.015 0-0.045 ng/ml Total Protein 6.9 6.4-8.2 gm/dl Albumin 3.5 3.4-5.0 gm/dl Globulin 3.4 2.5-4.0 gm/dl Albumin/Globulin Ratio 1.0 0.9-2 Procalcitonin 0.10 0-0.5 ng/ml Influenza Type A (RT-PCR) Neg for Influ A NEG Influenza Type B (RT-PCR) Neg for Influ B NEG Urine Color YELLOW Urine Appearance CLEAR CLEAR Urine pH 6.0 4.5-7.5 Urine Specific [place] 1.030 1.000-1.030 Urine Protein NEG NEG Urine Glucose (UA) 3+ NEG Urine Ketones TRACE NEG Urine Occult Blood 2+ NEG Urine Nitrite NEG NEG Urine Bilirubin NEG NEG Urine Urobilinogen NEG NEG Urine Leukocyte Esterase NEG NEG Urine WBC (Auto) 1-5 0-5 /hpf Urine RBC (Auto) 10-30 0-4 /hpf Urine Hyaline Casts (Auto) 0 0-5 /lpf Urine Epithelial Cells (Auto) 0-5 0-5 /lpf Urine Bacteria (Auto) NEG NEG Test 08/23/17 06:55 08/23/17 11:00 08/23/17 16:31 Range/Units Bedside Glucose 307 323 278 70-99 mg/dl Microbiology Results 08/23/17 Blood Culture, Received Pending 08/23/17 Blood Culture, Received Pending 08/23/17 MRSA DNA Surveillance Screen - Final, Complete Specimen Negative for MRSA by DNA Probe Radiology Interpretation: other (chest x-ray reviewed which showed bibasilar infiltrates that appear to be out of proportion of diagnosis of asthma.) Impression Assessment and Plan #1 asthma exacerbation, the patient has been on steroids according to him for the past 17 years. The diagnosis with asthma for the past 17 years unresponsive to high dose of steroids in which she has been on 40 mg and down to 20 mg at some point. Based me question as secondary diagnosis as well. The patient received ultimate therapy for asthma including bronchial thermoplasty without reduction in his exacerbations or readmission to the hospital. The patient presented to the hospital this time with increasing shortness of breath accompanied with wheezing. He is incarcerated and he denies any secondary exposure to smoking and he is nonsmoker as well. The patient is diabetic but he denies any fever and no chills but he did have rhinorrhea and sore throat. The patient did not have any nausea or vomiting. He does have long history of GERD. He has 2 bronchoscopies for previous bronchial thermoplasty, he continued to have exacerbations periodically. He has been maintained on Advair and brim blocker treatment. He takes daily Singulair. He does not have diurnal variation, he does not have seasonal symptoms either. No history of industrial exposure and is nonsmoker. #2 GERD which is contributing to his recent asthma exacerbation. He has been taking PPI on the in the morning. #3 mood disorder however none of his medications should alter his us with her status. Plan: #1 I would obtain high-resolution CAT scan to seek secondary diagnosis to his persistent chronic asthma. #2 I will continue with Advair, albuterol, Singulair. #3 I will obtain IgE level on him as well to evaluate for extent sick exposure. #4 the patient should start decreasing his steroids in an effort to seek an alternative therapy. Nebulized steroids could be an alternative if he reached the point where his prednisone requirement is less than 10 mg. #5 evaluation for eosinophilic bronchitis is warranted. That would require bronchial biopsy. Thank you, will follow.
--- NOTE | 2017-08-23 18:39 | DIAGNOSTIC IMAGING REPORT ---
(CHEST) THORAX WITHOUT CT DOSE: 517.32 mGy.cm CLINICAL HISTORY: 46 years-old Male with high resolution ct , eval for ILD. Asthma with concern for possible interstitial lung disease. TECHNIQUE: Multiaxial CT images of the chest were performed without contrast. A dose lowering technique was utilized adhering to the principles of ALARA. COMPARISON: Chest radiograph 08/23/2017. FINDINGS: Thyroid appears generally homogeneous. No pathologically enlarged lymph nodes of the chest identified. Heart is normal in size without pericardial effusion. Mild coronary arterial disease. Aorta appears normal in course and caliber. There is a pleural-based fatty attenuating ovoid lesion without well-defined margins involving the right posterior lateral chest wall on image 92 series 4 measuring 2.9 x 2.1 x 2.2 cm which is seen interposed between the right fifth and sixth ribs. No invasion into adjacent structures identified. Subsegmental dependent bibasilar consolidative opacities are present within the lower lobes. There are patchy multifocal bronchovascular distribution of groundglass opacities within the left upper lobe and lingula and to lesser extent within the left lower and right upper lobes. Groundglass opacities are noted within the subpleural distribution of the left upper lobe seen on image 104 series 4 suggesting scarring/atelectasis. Subpleural bleb and bullae formation noted at the level of the lung apices and to lesser extent within the midlung zones. Central airways are patent. No significant air trapping. No honeycombing or traction bronchiectasis. No acute abnormality of the imaged upper abdomen. Soft tissues are unremarkable. Bones appear intact. IMPRESSION: 1. Multilobar distribution of bronchovascular patchy groundglass opacities, notably within the left upper lobe and lingula suggest infectious bronchopneumonia. 2. Linear subsegmental consolidative opacities of the bilateral lower lobes likely reflects areas of atelectasis/scarring. 3. Mild subpleural bleb and bullae formation, notably at the level of the lung apices. 4. 2.9 cm fatty attenuating lesion abutting the right posterior lateral pleural surface interposed between the right fifth and sixth ribs suggests pleural or subpleural lipoma. Electronically signed by: Lew Christina M.D. 08/23/2017 6:38 PM Dictated Date/Time: 08/23/2017 6:27 PM
[2017-08-23] MEDS: METHYLPREDNISOLONE IV 40 MG in SYRINGE 0 ML IV SCH (20:39)
[2017-08-23] MEDS: PANTOprazole SOD 40 MG TAB PO SCH (20:40)
[2017-08-23] MEDS: ACETAMINOPHEN 325 MG TAB PO PRN (20:42)
[2017-08-23] MEDS: INSULIN GLARGINE SOLOSTAR 100 UNITS/ML 3 ML PEN SC SCH (22:04)
[2017-08-24] VITALS (8 sets, daily range): BP systolic 121–152; BP diastolic 70–84; PULSE 86–98; TEMP 36.5–36.8; O2SAT 93–96
[2017-08-24] MEDS: METHYLPREDNISOLONE IV 40 MG in SYRINGE 0 ML IV SCH ×3 (05:10→18:12)
[2017-08-24 06:56] LABS: BASO % 0.1 %; BASO ABS # 0.02 K/uL (0-0.2); HEMATOCRIT 39.2 % (42-52); HEMOGLOBIN 13.3 g/dL (14.0-18.0); IG# 0.22 K/uL (0.00-0.02); LYMPH % 7.1 %; LYMPH ABS # 1.65 K/uL (1.2-3.4); MEAN CELL VOLUME 93.8 fL (80-100); MEAN CORPUSCULAR HEMOGLOBIN 31.8 pg (25-34); MEAN CORPUSCULAR HGB CONC 33.9 g/dl (32-36); MEAN PLATELET VOLUME 9.6 fL (7.4-10.4); MONO % 7.6 %; MONO ABS # 1.76 K/uL (0.11-0.59); NEUT % 84.3 %; NEUT ABS # 19.61 K/uL (1.4-6.5); PLATELET COUNT 203 K/uL (130-400); RED CELL DISTRIBUTION WIDTH CV 13.6 % (11.5-14.5); RED CELL DISTRIBUTION WIDTH SD 46.6 fL (36.4-46.3); WHITE BLOOD COUNT 23.26 K/uL (4.8-10.8)
[2017-08-24] MEDS: ALBUT/IPRATROP 3MG/0.5MG NEB 3 ML VIAL INH SCH ×4 (07:29→18:56)
[2017-08-24 07:33] LABS: CALCIUM 8.7 mg/dl (8.5-10.1); CREATININE 0.85 mg/dl (0.60-1.40)
[2017-08-24] MEDS: CALCIUM CARBONATE 500 MG CHEWABLE PO SCH ×2 (07:57→20:40)
[2017-08-24] MEDS: FLUTICASONE/SALMETEROL (ADVAIR) 500/50 INH 14 PUFF INH SCH ×2 (07:57→20:40)
[2017-08-24] MEDS: MULTIVITAMIN TAB PO SCH (07:57)
[2017-08-24] MEDS: TERBUTALINE SULFATE 5 MG TAB PO SCH ×2 (07:57→20:38)
[2017-08-24] MEDS: FLUTICASONE PROPIONATE NA SPR 16 GM BTL SCH ×2 (07:57→20:40)
[2017-08-24] MEDS: MONTELUKAST SOD 10 MG TAB PO SCH (07:57)
[2017-08-24] MEDS: PANTOprazole SOD 40 MG TAB PO SCH ×2 (07:58→20:39)
[2017-08-24] MEDS: AZITHROMYCIN 250 MG TAB PO SCH (07:58)
[2017-08-24] MEDS: CARBAMAZEPINE 200 MG TAB PO SCH ×2 (07:58→20:39)
[2017-08-24] MEDS: ALENDRONATE SODIUM 10 MG TAB PO SCH (07:58)
[2017-08-24] MEDS: GUAIFENESIN/CODEINE 200MG/20MG 10ML UDC PO SCH ×5 (08:03→20:41)
[2017-08-24] MEDS: INSULIN ASPART 100 UNITS/ML 3 ML PEN SC SCH ×4 (08:03→20:36)
[2017-08-24] MEDS: INSULIN GLARGINE SOLOSTAR 100 UNITS/ML 3 ML PEN SC SCH ×2 (08:03→20:37)
[2017-08-24] MEDS ORDERED: ALBUT/IPRATROP 3MG/0.5MG NEB 3 ML VIAL INH PRN (08:45)
[2017-08-24] MEDS ORDERED: VANCOMYCIN TROUGH ONE (09:30)
--- NOTE | 2017-08-24 11:27 | Family Medicine Progress Note ---
Progress Note Date of Service Aug 24, 2017. Subjective Pt evaluation today including: conversation w/ patient Pt reports feeling weak and pain in his ribs bilaterally, says there was pain meds for it before but "they stopped it". Otherwise had nebulizer therapy ongoing while in room, guards at bedside. Able to speak in full sentences, no cough at the moment. Says while at the facility he is regularly seen by a nurse there for his treatments which he completes 4xday. She was concerned for him on due to a lower than usual pulse ox in the 70s per pt and subjective fever. Otherwise stooling and urinating without issues, has headaches that "come and go ", reports h/o numbness in his right leg but currently denies pain there. ROS otherwise unremarkable as noted above Medications Current Inpatient Medications Medications (Trade) Dose Ordered Sig/Elza Route Start Time Stop Time Status Last Admin Dose Admin Acetaminophen (Tylenol Tab) 650 mg Q4H PRN PO 08/23/17 00:30 09/22/17 00:29 08/23/17 20:42 650 MG Al Hydrox/Mg Hydrox/Simethicone (Maalox Max Susp) 15 ml Q4H PRN PO 08/23/17 00:30 09/22/17 00:29 Magnesium Hydroxide (Milk Of Magnesia Susp) 30 ml Q12H PRN PO 08/23/17 00:30 09/22/17 00:29 Ondansetron HCl (Zofran Inj) 4 mg Q6H PRN IV 08/23/17 00:30 09/22/17 00:29 Nitroglycerin (Nitrostat Tab) 0.4 mg UD PRN SL 08/23/17 00:30 09/22/17 00:29 Polyethylene (Miralax Powder Packet) 17 gm DAILY PRN PO 08/23/17 00:30 09/22/17 00:29 Albuterol/ Ipratropium (Duoneb) 3 ml QIDR INH 08/23/17 08:00 09/22/17 07:59 08/24/17 10:49 3 ML Alendronate Sodium (Fosamax Tab) 10 mg QAM PO 08/23/17 09:00 09/22/17 08:59 08/24/17 07:58 10 MG Calcium Carbonate (Tums Chew Tab) 1,000 mg BID PO 08/23/17 09:00 09/22/17 08:59 08/24/17 07:57 1,000 MG Carbamazepine (Tegretol Tab) 200 mg BID PO 08/23/17 09:00 09/22/17 08:59 08/24/17 07:58 200 MG Salmeterol Xinafoate/ Fluticasone (Advair Diskus 500/50 Inh) 1 puff BID INH 08/23/17 09:00 09/22/17 08:59 08/24/17 07:57 1 PUFF Fluticasone Propionate (Flonase Nasal [place]) 2 sprays BID NA 08/23/17 09:00 09/22/17 08:59 08/24/17 07:57 2 SPRAYS Codeine Phosphate/ Guaifenesin (Robitussin-AC Sugar Free Syrup) 10 ml QID PO 08/23/17 09:00 09/22/17 08:59 08/24/17 08:12 10 ML Montelukast Sodium (Singulair Tab) 10 mg QAM PO 08/23/17 09:00 09/22/17 08:59 08/24/17 07:57 10 MG Multivitamins (Multivitamin Tab) 1 tab DAILY PO 08/23/17 09:00 09/22/17 08:59 08/24/17 07:57 1 TAB Sodium Chloride ([place] Nasal [place]) 2 sprays QID PRN ELINA 08/23/17 01:45 09/22/17 01:44 Terbutaline Sulfate (Brethine Tab) 2.5 mg BID PO 08/23/17 09:00 09/22/17 08:59 08/24/17 07:57 2.5 MG Insulin Aspart (novoLOG ASPART) SLIDING SCALE G... ACHS SC 08/23/17 07:00 09/22/17 06:59 08/24/17 08:03 22 UNITS Diphenhydramine HCl (Benadryl Inj) 25 mg Q4H PRN IV 08/23/17 04:30 09/22/17 04:29 08/23/17 09:29 25 MG Insulin Glargine (Lantus Solostar Pen) 10 units BID SC 08/23/17 21:00 09/22/17 20:59 08/24/17 08:03 10 UNITS Azithromycin (Zithromax Tab) 250 mg QAM PO 08/24/17 09:00 08/31/17 08:59 08/24/17 07:58 250 MG Methylprednisolone Sodium Succinate 40 mg/Syringe 0.64 ml @ 1.5 mls/min Q8H IV 08/23/17 21:00 09/22/17 20:59 08/24/17 05:10 1.5 MLS/MIN Pantoprazole Sodium (Protonix Tab) 40 mg BID PO 08/23/17 21:00 08/27/17 20:59 08/24/17 07:58 40 MG Albuterol/ Ipratropium (Duoneb) 3 ml Q1HWA PRN INH 08/24/17 08:45 09/23/17 08:44 Objective Physical Exam General Appearance: WD/WN, no apparent distress Eyes: normal inspection, EOMI Neck: supple, no adenopathy Respiratory/Chest: no accessory muscle use, + pertinent finding (insp and exp wheezing bilaterally. ++tenderness to palpation of chest bilaterally and axially. ) Cardiovascular: regular rate, rhythm, no edema Abdomen: normal bowel sounds, non tender, soft Extremities: no pedal edema, no calf tenderness, + pertinent finding (cuffed to bed on RT ext. SCD's not in place.) Skin: normal color, warm/dry Laboratory Results 08/24/17 06:15 Red Blood Count 4.18, Mean Corpuscular Volume 93.8, Mean Corpuscular Hemoglobin 31.8, Mean Corpuscular Hemoglobin Concent 33.9, Mean Platelet Volume 9.6, Neutrophils (%) (Auto) 84.3, Lymphocytes (%) (Auto) 7.1, Monocytes (%) (Auto) 7.6, Eosinophils (%) (Auto) 0.0, Basophils (%) (Auto) 0.1, Neutrophils # (Auto) 19.61, Lymphocytes # (Auto) 1.65, Monocytes # (Auto) 1.76, Eosinophils # (Auto) 0.00, Basophils # (Auto) 0.02 08/24/17 06:15 Test 08/24/17 06:15 08/24/17 11:07 White Blood Count 23.26 K/uL (4.8-10.8) Red Blood Count 4.18 M/uL (4.7-6.1) Hemoglobin 13.3 g/dL (14.0-18.0) Hematocrit 39.2 % (42-52) Mean Corpuscular Volume 93.8 fL (80-100) Mean Corpuscular Hemoglobin 31.8 pg (25-34) Mean Corpuscular Hemoglobin Concent 33.9 g/dl (32-36) Platelet Count 203 K/uL (130-400) Mean Platelet Volume 9.6 fL (7.4-10.4) Neutrophils (%) (Auto) 84.3 % Lymphocytes (%) (Auto) 7.1 % Monocytes (%) (Auto) 7.6 % Eosinophils (%) (Auto) 0.0 % Basophils (%) (Auto) 0.1 % Neutrophils # (Auto) 19.61 K/uL (1.4-6.5) Lymphocytes # (Auto) 1.65 K/uL (1.2-3.4) Monocytes # (Auto) 1.76 K/uL (0.11-0.59) Eosinophils # (Auto) 0.00 K/uL (0-0.5) Basophils # (Auto) 0.02 K/uL (0-0.2) RDW Standard Deviation 46.6 fL (36.4-46.3) RDW Coefficient of Variation 13.6 % (11.5-14.5) Immature Granulocyte % (Auto) 0.9 % Immature Granulocyte # (Auto) 0.22 K/uL (0.00-0.02) Erythrocyte Sedimentation Rate 23 mm/hr (0-14) Anion Gap 6.0 mmol/L (3-11) Est Creatinine Clear Calc Drug Dose 138.1 ml/min Estimated GFR () 120.3 Estimated GFR (Non- 103.8 BUN/Creatinine Ratio 18.8 (10-20) Calcium Level 8.7 mg/dl (8.5-10.1) Chemistry Specimen Hemolysis Bedside Glucose 267 mg/dl (70-99) Assessment and Plan 46 yo m suffering from an acute asthma exacerbation leading to acute hypoxic respiratory failure Acute hypoxic resp failure secondary to ?viral vs bacterial infection (PNA)? in the presence of severe asthma - CXR: Mild left basilar subsegmental atelectasis. Chronic basilar interstitial change. - Pulmonary consulted - patient follows with . - Appreciate Dr. Arnold recs which include high res CT, IgE level, and possible eval for eosinophilic bronchitis and bronchial biopsy. - Methylprednisone 40mg TID - Azithromycin running - Duoneb scheduled, and continue home meds: Spiriva, Advair, terbutaline and Singulair - incentive matty and vibration vest advisable - ordered pulmicort respules nebulized per suggestion of resp., also have duoneb q1hwa prn ordered. - suspect palpable rib pain 2/2 work of breathing, pain control on board tylenol and naproxyn, following. - 93 on room air, 95 on 2L. Improving. - Chest CT shows complex lung disease: IMPRESSION: 1. Multilobar distribution of bronchovascular patchy groundglass opacities, notably within the left upper lobe and lingula suggest infectious bronchopneumonia. 2. Linear subsegmental consolidative opacities of the bilateral lower lobes likely reflects areas of atelectasis/scarring. 3. Mild subpleural bleb and bullae formation, notably at the level of the lung apices. 4. 2.9 cm fatty attenuating lesion abutting the right posterior lateral pleural surface interposed between the right fifth and sixth ribs suggests pleural or subpleural lipoma. DMII - Metformin held - Lantus 10units BID + ISS (with tight parameters) - Check BG ac/hs Seizure disorder - Continue carbamazepine GERD - Continue Protonix VTE ppx SCD and heparin Resident Physician Supervision Note: I interviewed and examined the patient. Discussed with Dr. Quevedo and agree with findings and plan as documented in the note. Any exceptions or clarifications are listed here: None Documented By: Alberto Contreras feeling rough today - lots of sob just had breathing treatment, worried about chronic management too - feels that they don't know what to do with him at [facility] vitals noted fatigued but nad, diffuse rhonchi/exp wheeze asthma exac - stable, but not really improving. with severity of apparent baselien situation this could take time. continue current care and follow. continuing to gather background data and greatly appreciate pulmonary investigations as well into baselien illness given odd scenario of severe asthma failing thermoplasty and on 70mg chronic prednisone otherwise as above Continued [facility] stay due to: abnormal vital signs Resident Tracking Resident Involvement: Resident Care Provided Care Provided: Adult Hospital Medicine
[2017-08-24] MEDS ORDERED: BUDESONIDE 0.5 MG/2 ML VIAL (PULMICORT) INH ONE (11:45)
--- NOTE | 2017-08-24 13:38 | Pulmonology Progress Note ---
Pulmonary Progress Note Date of Service Aug 24, 2017. Attending Dr. Catalina Bailey The patient continued to have persistent cough or shortness of breath, no chest pain reported. The patient did not have a good night sleep according to him due to the persistent cough. No abdominal pain was reported no chest pain was reported no nausea or vomiting and no heartburn. Objective Physical exam on 08/24/2017 revealed no hypoxia but remains on oxygen, did not have any fever, no chest pain, still with bilateral wheezing, S1-S2 regular rate and rhythm, abdomen is benign no edema. Assessment & Plan #1 asthma exacerbation, chronic persistent. #2 CAT scan of the chest was reviewed personally, showing mucoid impaction at the bases. He does have emphysematous changes. These findings are consistent with possible superimposed COPD on asthma. The traction bronchiectasis is concerning. #3 GERD. #4 mood disorder. Plan: #1 I would increase Solu-Medrol to 40 mg IV every 6 hours. #2 continue with current bronchodilators. #3 obtain IgE level. #4 the findings of the CAT scan suggestive of inflammatory changes with small peribronchial patchy infiltrate consistent with diagnosis of asthma exacerbation. The patient does have bullae noted medially. The patient has also bronchiectatic changes. These findings are inconsistent with as metastases all except with mucoid impaction and postobstructive cylindrical bronchiectasis. In that regard, I would obtain IgE level. Thank you, will follow. Data Medications: Current Inpatient Medications Medications (Trade) Dose Ordered Sig/Elza Route Start Time Stop Time Status Last Admin Dose Admin Acetaminophen (Tylenol Tab) 650 mg Q4H PRN PO 08/23/17 00:30 09/22/17 00:29 08/23/17 20:42 650 MG Al Hydrox/Mg Hydrox/Simethicone (Maalox Max Susp) 15 ml Q4H PRN PO 08/23/17 00:30 09/22/17 00:29 Magnesium Hydroxide (Milk Of Magnesia Susp) 30 ml Q12H PRN PO 08/23/17 00:30 09/22/17 00:29 Ondansetron HCl (Zofran Inj) 4 mg Q6H PRN IV 08/23/17 00:30 09/22/17 00:29 Nitroglycerin (Nitrostat Tab) 0.4 mg UD PRN SL 08/23/17 00:30 09/22/17 00:29 Polyethylene (Miralax Powder Packet) 17 gm DAILY PRN PO 08/23/17 00:30 09/22/17 00:29 Albuterol/ Ipratropium (Duoneb) 3 ml QIDR INH 08/23/17 08:00 09/22/17 07:59 08/24/17 10:49 3 ML Alendronate Sodium (Fosamax Tab) 10 mg QAM PO 08/23/17 09:00 09/22/17 08:59 08/24/17 07:58 10 MG Calcium Carbonate (Tums Chew Tab) 1,000 mg BID PO 08/23/17 09:00 09/22/17 08:59 08/24/17 07:57 1,000 MG Carbamazepine (Tegretol Tab) 200 mg BID PO 08/23/17 09:00 09/22/17 08:59 08/24/17 07:58 200 MG Salmeterol Xinafoate/ Fluticasone (Advair Diskus 500/50 Inh) 1 puff BID INH 08/23/17 09:00 09/22/17 08:59 08/24/17 07:57 1 PUFF Fluticasone Propionate (Flonase Nasal [place]) 2 sprays BID NA 08/23/17 09:00 09/22/17 08:59 08/24/17 07:57 2 SPRAYS Codeine Phosphate/ Guaifenesin (Robitussin-AC Sugar Free Syrup) 10 ml QID PO 08/23/17 09:00 09/22/17 08:59 08/24/17 12:18 10 ML Montelukast Sodium (Singulair Tab) 10 mg QAM PO 08/23/17 09:00 09/22/17 08:59 08/24/17 07:57 10 MG Multivitamins (Multivitamin Tab) 1 tab DAILY PO 08/23/17 09:00 09/22/17 08:59 08/24/17 07:57 1 TAB Sodium Chloride ([place] Nasal [place]) 2 sprays QID PRN ELINA 08/23/17 01:45 09/22/17 01:44 Terbutaline Sulfate (Brethine Tab) 2.5 mg BID PO 08/23/17 09:00 09/22/17 08:59 08/24/17 07:57 2.5 MG Insulin Aspart (novoLOG ASPART) SLIDING SCALE G... ACHS SC 08/23/17 07:00 09/22/17 06:59 08/24/17 12:07 24 UNITS Diphenhydramine HCl (Benadryl Inj) 25 mg Q4H PRN IV 08/23/17 04:30 09/22/17 04:29 08/23/17 09:29 25 MG Insulin Glargine (Lantus Solostar Pen) 10 units BID SC 08/23/17 21:00 09/22/17 20:59 08/24/17 08:03 10 UNITS Azithromycin (Zithromax Tab) 250 mg QAM PO 08/24/17 09:00 08/31/17 08:59 08/24/17 07:58 250 MG Methylprednisolone Sodium Succinate 40 mg/Syringe 0.64 ml @ 1.5 mls/min Q8H IV 08/23/17 21:00 09/22/17 20:59 08/24/17 12:18 1.5 MLS/MIN Pantoprazole Sodium (Protonix Tab) 40 mg BID PO 08/23/17 21:00 08/27/17 20:59 08/24/17 07:58 40 MG Albuterol/ Ipratropium (Duoneb) 3 ml Q2HWA PRN INH 08/24/17 11:15 09/23/17 08:44 Budesonide (Pulmicort Respules 0.5MG/ 2ML Neb Soln) 0.5 mg BIDR INH 08/24/17 20:00 09/23/17 19:59 Vital Signs: Date Time Temp Pulse Resp B/P (MAP) Pulse Ox O2 Delivery O2 Flow Rate FiO2 08/24/17 10:49 88 20 93 Room Air 08/24/17 08:00 Nasal Cannula 2.0 08/24/17 07:54 36.5 98 18 136/82 (100) 95 Nasal Cannula 2.0 08/24/17 07:30 88 20 96 Nasal Cannula 4.0 08/24/17 00:29 36.8 93 20 141/79 (99) 96 Room Air 4.0 08/24/17 00:00 Nasal Cannula 4.0 08/23/17 23:21 93 20 96 Nasal Cannula 4.0 08/23/17 20:00 97 Nasal Cannula 4.0 08/23/17 20:00 87 20 97 Nasal Cannula 4.0 08/23/17 19:53 36.8 84 20 125/76 (92) 97 Nasal Cannula 3.0 08/23/17 19:05 36.6 109 20 94 4.0 08/23/17 16:00 94 Nasal Cannula 4.0 08/23/17 14:58 109 20 94 Room Air 08/23/17 14:54 36.6 109 20 129/84 (99) 94 Room Air Laboratory Results: Last 24 Hours Test 08/23/17 16:31 08/23/17 20:11 08/24/17 06:15 08/24/17 07:44 Bedside Glucose 278 mg/dl 133 mg/dl 198 mg/dl White Blood Count 23.26 K/uL Red Blood Count 4.18 M/uL Hemoglobin 13.3 g/dL Hematocrit 39.2 % Mean Corpuscular Volume 93.8 fL Mean Corpuscular Hemoglobin 31.8 pg Mean Corpuscular Hemoglobin Concent 33.9 g/dl Platelet Count 203 K/uL Mean Platelet Volume 9.6 fL Neutrophils (%) (Auto) 84.3 % Lymphocytes (%) (Auto) 7.1 % Monocytes (%) (Auto) 7.6 % Eosinophils (%) (Auto) 0.0 % Basophils (%) (Auto) 0.1 % Neutrophils # (Auto) 19.61 K/uL Lymphocytes # (Auto) 1.65 K/uL Monocytes # (Auto) 1.76 K/uL Eosinophils # (Auto) 0.00 K/uL Basophils # (Auto) 0.02 K/uL RDW Standard Deviation 46.6 fL RDW Coefficient of Variation 13.6 % Immature Granulocyte % (Auto) 0.9 % Immature Granulocyte # (Auto) 0.22 K/uL Erythrocyte Sedimentation Rate 23 mm/hr Sodium Level 139 mmol/L Potassium Level 4.0 mmol/L Chloride Level 106 mmol/L Carbon Dioxide Level 27 mmol/L Anion Gap 6.0 mmol/L Blood Urea Nitrogen 16 mg/dl Creatinine 0.85 mg/dl Est Creatinine Clear Calc Drug Dose 138.1 ml/min Estimated GFR () 120.3 Estimated GFR (Non- 103.8 BUN/Creatinine Ratio 18.8 Random Glucose 220 mg/dl Calcium Level 8.7 mg/dl Chemistry Specimen Hemolysis Test 08/24/17 11:07 08/24/17 13:33 Bedside Glucose 267 mg/dl
[2017-08-24] MEDS ORDERED: NAPROXEN 375 MG TAB PO STA (16:08)
[2017-08-24] MEDS: ACETAMINOPHEN 325 MG TAB PO PRN (17:00)
[2017-08-24] MEDS: BUDESONIDE 0.5 MG/2 ML VIAL (PULMICORT) INH SCH (18:56)
[2017-08-25] VITALS (10 sets, daily range): BP systolic 138–162; BP diastolic 83–85; PULSE 79–114; TEMP 36.7; O2SAT 90–96
[2017-08-25] MEDS: METHYLPREDNISOLONE IV 40 MG in SYRINGE 0 ML IV SCH ×5 (00:02→23:39)
[2017-08-25] MEDS: ACETAMINOPHEN 325 MG TAB PO PRN (00:03)
[2017-08-25] MEDS: ALBUT/IPRATROP 3MG/0.5MG NEB 3 ML VIAL INH PRN ×2 (00:04→05:49)
[2017-08-25] MEDS ORDERED: NAPROXEN 375 MG TAB PO PRN (06:00)
[2017-08-25] MEDS: ALBUT/IPRATROP 3MG/0.5MG NEB 3 ML VIAL INH SCH ×5 (06:56→23:14)
[2017-08-25] MEDS: BUDESONIDE 0.5 MG/2 ML VIAL (PULMICORT) INH SCH ×2 (06:56→20:00)
[2017-08-25] MEDS: FLUTICASONE/SALMETEROL (ADVAIR) 500/50 INH 14 PUFF INH SCH ×2 (07:16→21:16)
[2017-08-25] MEDS: FLUTICASONE PROPIONATE NA SPR 16 GM BTL SCH ×2 (07:16→21:16)
[2017-08-25] MEDS: AZITHROMYCIN 250 MG TAB PO SCH (07:17)
[2017-08-25] MEDS: MULTIVITAMIN TAB PO SCH (07:17)
[2017-08-25] MEDS: PANTOprazole SOD 40 MG TAB PO SCH ×2 (07:17→21:17)
[2017-08-25] MEDS: CALCIUM CARBONATE 500 MG CHEWABLE PO SCH ×2 (07:17→21:19)
[2017-08-25] MEDS: TERBUTALINE SULFATE 5 MG TAB PO SCH ×2 (07:17→21:18)
[2017-08-25] MEDS: MONTELUKAST SOD 10 MG TAB PO SCH (07:17)
[2017-08-25] MEDS: ALENDRONATE SODIUM 10 MG TAB PO SCH (07:18)
[2017-08-25] MEDS: CARBAMAZEPINE 200 MG TAB PO SCH ×2 (07:18→21:18)
[2017-08-25 07:25] LABS: BASO ABS # 0.01 K/uL (0-0.2); HEMATOCRIT 40.1 % (42-52); HEMOGLOBIN 13.6 g/dL (14.0-18.0); IG# 0.25 K/uL (0.00-0.02); LYMPH % 5.4 %; LYMPH ABS # 1.12 K/uL (1.2-3.4); MEAN CELL VOLUME 93.7 fL (80-100); MEAN CORPUSCULAR HEMOGLOBIN 31.8 pg (25-34); MEAN CORPUSCULAR HGB CONC 33.9 g/dl (32-36); MEAN PLATELET VOLUME 9.7 fL (7.4-10.4); MONO % 5.9 %; MONO ABS # 1.21 K/uL (0.11-0.59); NEUT % 87.5 %; NEUT ABS # 18.08 K/uL (1.4-6.5); PLATELET COUNT 221 K/uL (130-400); RED CELL DISTRIBUTION WIDTH CV 13.8 % (11.5-14.5); RED CELL DISTRIBUTION WIDTH SD 47.2 fL (36.4-46.3); WHITE BLOOD COUNT 20.67 K/uL (4.8-10.8)
[2017-08-25] MEDS: INSULIN ASPART 100 UNITS/ML 3 ML PEN SC SCH ×4 (07:47→21:00)
[2017-08-25] MEDS: INSULIN GLARGINE SOLOSTAR 100 UNITS/ML 3 ML PEN SC SCH ×2 (07:48→21:22)
[2017-08-25 08:02] LABS: CALCIUM 8.7 mg/dl (8.5-10.1); CREATININE 0.94 mg/dl (0.60-1.40)
[2017-08-25] MEDS: GUAIFENESIN/CODEINE 200MG/20MG 10ML UDC PO SCH ×4 (08:17→21:16)
[2017-08-25] MEDS ORDERED: LIDODERM (LIDOCAINE) PATCH 5% TD ONE (10:09)
--- NOTE | 2017-08-25 10:09 | Family Medicine Progress Note ---
Progress Note Date of Service Aug 25, 2017. Subjective Pt evaluation today including: conversation w/ patient, physical exam, chart review, lab review Pain: c/o bilateral rib pain PO Intake: adequate Voiding: no voiding problems C/o bilateral rib pain, LT>RT. Coughing somewhat improved. Has questions about Pulmonology's recs. Objective Vital Signs Date Time Temp Pulse Resp B/P (MAP) Pulse Ox O2 Delivery O2 Flow Rate FiO2 08/25/17 08:00 Nasal Cannula 2.0 08/25/17 07:31 36.7 87 20 162/85 (110) 95 Room Air 08/25/17 06:56 109 20 96 Nasal Cannula 7.0 08/25/17 05:49 79 20 96 Nasal Cannula 2.0 08/25/17 00:05 86 20 95 Nasal Cannula 2.0 08/25/17 00:00 Nasal Cannula 2.0 08/24/17 23:32 36.8 86 19 121/70 (87) 96 Room Air 08/24/17 18:56 89 20 94 Nasal Cannula 2.0 08/24/17 16:00 Nasal Cannula 2.0 08/24/17 15:10 86 20 95 Nasal Cannula 2.0 08/24/17 15:06 36.5 89 18 152/84 (106) 95 Room Air 08/24/17 10:49 88 20 93 Room Air Physical Exam General Appearance: WD/WN, no apparent distress (sitting up in bed, cuffed to bed at right ankle) Eyes: normal inspection, EOMI Respiratory/Chest: no respiratory distress, + pertinent finding (diffuse end expiratory wheezes bilaterally) Cardiovascular: regular rate, rhythm Abdomen: normal bowel sounds, soft Extremities: non-tender, normal inspection, no pedal edema Neurologic/Psychiatric: alert, normal mood/affect Skin: normal color, warm/dry Laboratory Results 08/25/17 07:02 Red Blood Count 4.28, Mean Corpuscular Volume 93.7, Mean Corpuscular Hemoglobin 31.8, Mean Corpuscular Hemoglobin Concent 33.9, Mean Platelet Volume 9.7, Neutrophils (%) (Auto) 87.5, Lymphocytes (%) (Auto) 5.4, Monocytes (%) (Auto) 5.9, Eosinophils (%) (Auto) 0.0, Basophils (%) (Auto) 0.0, Neutrophils # (Auto) 18.08, Lymphocytes # (Auto) 1.12, Monocytes # (Auto) 1.21, Eosinophils # (Auto) 0.00, Basophils # (Auto) 0.01 08/25/17 07:02 Test 08/24/17 13:42 08/25/17 07:02 08/25/17 07:35 White Blood Count 20.67 K/uL (4.8-10.8) Red Blood Count 4.28 M/uL (4.7-6.1) Hemoglobin 13.6 g/dL (14.0-18.0) Hematocrit 40.1 % (42-52) Mean Corpuscular Volume 93.7 fL (80-100) Mean Corpuscular Hemoglobin 31.8 pg (25-34) Mean Corpuscular Hemoglobin Concent 33.9 g/dl (32-36) Platelet Count 221 K/uL (130-400) Mean Platelet Volume 9.7 fL (7.4-10.4) Neutrophils (%) (Auto) 87.5 % Lymphocytes (%) (Auto) 5.4 % Monocytes (%) (Auto) 5.9 % Eosinophils (%) (Auto) 0.0 % Basophils (%) (Auto) 0.0 % Neutrophils # (Auto) 18.08 K/uL (1.4-6.5) Lymphocytes # (Auto) 1.12 K/uL (1.2-3.4) Monocytes # (Auto) 1.21 K/uL (0.11-0.59) Eosinophils # (Auto) 0.00 K/uL (0-0.5) Basophils # (Auto) 0.01 K/uL (0-0.2) RDW Standard Deviation 47.2 fL (36.4-46.3) RDW Coefficient of Variation 13.8 % (11.5-14.5) Immature Granulocyte % (Auto) 1.2 % Immature Granulocyte # (Auto) 0.25 K/uL (0.00-0.02) Anion Gap 7.0 mmol/L (3-11) Est Creatinine Clear Calc Drug Dose 124.9 ml/min Estimated GFR () 111.5 Estimated GFR (Non- 96.2 BUN/Creatinine Ratio 19.3 (10-20) Calcium Level 8.7 mg/dl (8.5-10.1) Bedside Glucose 228 mg/dl (70-99) Assessment and Plan 46 yo m suffering from an acute asthma exacerbation leading to acute hypoxic respiratory failure Acute hypoxic resp failure secondary to ?viral vs bacterial infection (PNA)? in the presence of severe asthma - Pulmonary consulted - patient follows with . - Appreciate Dr. Arnold recs which include high res CT, IgE level, and possible eval for eosinophilic bronchitis and bronchial biopsy. - Methylprednisone 40mg changed to q6 per Dr. Arnold - Azithromycin running - Duoneb scheduled, and continue home meds: Spiriva, Advair, terbutaline and Singulair - incentive matty and vibration vest advisable - ordered pulmicort respules nebulized per suggestion of resp., also have duoneb q1hwa prn ordered. - suspect palpable rib pain 2/2 work of breathing, pain control on board tylenol and naproxyn, following. Adding lidocaine patch. - 93 on room air, 95 on 2L. Improving. - Chest CT shows complex lung disease: "IMPRESSION: 1. Multilobar distribution of bronchovascular patchy groundglass opacities, notably within the left upper lobe and lingula suggest infectious bronchopneumonia. 2. Linear subsegmental consolidative opacities of the bilateral lower lobes likely reflects areas of atelectasis/scarring. 3. Mild subpleural bleb and bullae formation, notably at the level of the lung apices. 4. 2.9 cm fatty attenuating lesion abutting the right posterior lateral pleural surface interposed between the right fifth and sixth ribs suggests pleural or subpleural lipoma." DMII - Metformin held - Lantus 10units BID + ISS (with tight parameters) - Check BG ac/hs Seizure disorder - Continue carbamazepine GERD - Continue Protonix VTE ppx SCD and heparin Resident Physician Supervision Note: I interviewed and examined the patient. Discussed with Dr. Quevedo and agree with findings and plan as documented in the note. Any exceptions or clarifications are listed here: None Documented By: Alberto Contreras feeling a little better now but very worried about when he's going to feel bad again. d/w respiratory - input greatly appreciated 95% on room air now he notes he'll wake up in middle of the night and feel like an elephant is on his chest but often he can ride it out in his cell however he also notes that pulse ox is frequently checked in 70-80's notes he deosn't recall being told he wasn't wheezing - on lung exam best he can recall always wheezes vitals noted mildly anxious but pleasant nad wheezing but less rhonchorous and good air entry no accessory muscles good effort asthma exacerbation - exac improving chronic severe asthma - ?unclear baseline situation - but 70mg prednisone as base, and noticing even a reduction of 2.5mg seems odd. ?anxiety component -- if he was always hypoxic when he wakes in the middle of the night to the degree that he has recalled, would be strange that he could "ride it out" in his cell if that severe. ongoing allergic/asthma w/u by pulmonary. careful observation to correlate symptoms and objective findings as far as ?anxiety component. no doubt he has real asthma, but i do wonder if his shortness of breath isn't multifactorial. chronic steroid dependance - would like to wean if possible, at least to more reasonable doses. probably won't be able to completely wean for a long time given long-high dosing almost certainly adrenal suppression DM - related to steroids concern on osteoporosis related to steroids continue inpatient eval and management Continued [facility] stay due to: abnormal vital signs, multiple IV medications needed Discharge planning: other Resident Tracking Resident Involvement: Resident Care Provided Care Provided: Adult Hospital Medicine
[2017-08-25] MEDS ORDERED: ALBUT/IPRATROP 3MG/0.5MG NEB 3 ML VIAL INH ONE (13:45)
--- NOTE | 2017-08-25 16:57 | Pulmonology Progress Note ---
Pulmonary Progress Note Date of Service Aug 25, 2017. Attending Dr. Catalina Bailey The patient continued to have shortness of breath, wheezing, although he sounded better to my exam however he feels still with significant respiratory distress. Patient required a treatment additionally for 3 times according to him. In the past 24 hours. He did not have any chest pain, no hemoptysis reported and no sputum production. Objective Physical exam on 08/24/2017 revealed no hypoxia but remains on oxygen, did not have any fever, no chest pain, still with bilateral wheezing, S1-S2 regular rate and rhythm, abdomen is benign no edema. Physical exam on 08/25/2017 revealed, upper airway sounding mostly representing stridor rather than wheezing, scattered wheezing bilaterally, much better than it was yesterday. Heart examination S1-S2 regular rate and rhythm. Abdomen is benign no edema. Assessment & Plan #1 asthma exacerbation, chronic persistent. #2 CAT scan of the chest was reviewed personally, showing mucoid impaction at the bases. He does have emphysematous changes. These findings are consistent with possible superimposed COPD on asthma. The traction bronchiectasis is concerning for postobstructive mucoid impaction. 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 Sub pleuritic blebs also noted. #3 GERD. #4 mood disorder. Although the patient denies it and denies being on any medications for it. Plan: #1 I would increase Solu-Medrol to 40 mg IV every 6 hours. #2 continue with current bronchodilators. I have noticed that the patient is also on but this tonight, I will stop with this night as the patient is already on systemic steroids. #3 obtain IgE level. Awaiting the results. If the IgE level is elevated over thousand, attention should be paid to ABPA. #4 the findings of the CAT scan suggestive of inflammatory changes with small peribronchial patchy infiltrate consistent with diagnosis of asthma exacerbation. Infectious process cannot be totally excluded. The patient does have bullae noted medially. The patient has also bronchiectatic changes. These findings are consistent with mucoid impaction and postobstructive cylindrical bronchiectasis. In that regard, I would obtain IgE level. #5 the patient would like to have a bronchoscopy for pulmonary toilet. Given the level of his bronchospasm, it would not be a safe practice to do so at this point. I have notified him about it. #6 due to the persistent upper airway wheezing this was more audible in the neck area, I will start the patient on Xanax 0.5 mg by mouth 3 times a day for the treatment of vocal cord dysfunction. Very common in asthmatic. Mostly psychological. Thank you, will follow. Data Medications: Current Inpatient Medications Medications (Trade) Dose Ordered Sig/Elza Route Start Time Stop Time Status Last Admin Dose Admin Acetaminophen (Tylenol Tab) 650 mg Q4H PRN PO 08/23/17 00:30 09/22/17 00:29 08/25/17 00:03 650 MG Al Hydrox/Mg Hydrox/Simethicone (Maalox Max Susp) 15 ml Q4H PRN PO 08/23/17 00:30 09/22/17 00:29 Magnesium Hydroxide (Milk Of Magnesia Susp) 30 ml Q12H PRN PO 08/23/17 00:30 09/22/17 00:29 Ondansetron HCl (Zofran Inj) 4 mg Q6H PRN IV 08/23/17 00:30 09/22/17 00:29 Nitroglycerin (Nitrostat Tab) 0.4 mg UD PRN SL 08/23/17 00:30 09/22/17 00:29 Polyethylene (Miralax Powder Packet) 17 gm DAILY PRN PO 08/23/17 00:30 09/22/17 00:29 Albuterol/ Ipratropium (Duoneb) 3 ml QIDR INH 08/23/17 08:00 09/22/17 07:59 08/25/17 16:09 3 ML Alendronate Sodium (Fosamax Tab) 10 mg QAM PO 08/23/17 09:00 09/22/17 08:59 08/25/17 07:18 10 MG Calcium Carbonate (Tums Chew Tab) 1,000 mg BID PO 08/23/17 09:00 09/22/17 08:59 08/25/17 07:17 1,000 MG Carbamazepine (Tegretol Tab) 200 mg BID PO 08/23/17 09:00 09/22/17 08:59 08/25/17 07:18 200 MG Salmeterol Xinafoate/ Fluticasone (Advair Diskus 500/50 Inh) 1 puff BID INH 1/26/18 09:00 09/22/17 08:59 08/25/17 07:16 1 PUFF Fluticasone Propionate (Flonase Nasal [place]) 2 sprays BID NA 08/23/17 09:00 09/22/17 08:59 08/25/17 07:16 2 SPRAYS Codeine Phosphate/ Guaifenesin (Robitussin-AC Sugar Free Syrup) 10 ml QID PO 08/23/17 09:00 09/22/17 08:59 08/25/17 13:17 10 ML Montelukast Sodium (Singulair Tab) 10 mg QAM PO 08/23/17 09:00 09/22/17 08:59 08/25/17 07:17 10 MG Multivitamins (Multivitamin Tab) 1 tab DAILY PO 08/23/17 09:00 09/22/17 08:59 08/25/17 07:17 1 TAB Sodium Chloride ([place] Nasal [place]) 2 sprays QID PRN ELINA 08/23/17 01:45 09/22/17 01:44 Terbutaline Sulfate (Brethine Tab) 2.5 mg BID PO 08/23/17 09:00 09/22/17 08:59 08/25/17 07:17 2.5 MG Insulin Aspart (novoLOG ASPART) SLIDING SCALE G... ACHS SC 08/23/17 07:00 09/22/17 06:59 08/25/17 11:49 19 UNITS Diphenhydramine HCl (Benadryl Inj) 25 mg Q4H PRN IV 08/23/17 04:30 09/22/17 04:29 08/23/17 09:29 25 MG Azithromycin (Zithromax Tab) 250 mg QAM PO 08/24/17 09:00 08/31/17 08:59 08/25/17 07:17 250 MG Pantoprazole Sodium (Protonix Tab) 40 mg BID PO 08/23/17 21:00 08/27/17 20:59 08/25/17 07:17 40 MG Albuterol/ Ipratropium (Duoneb) 3 ml Q2HWA PRN INH 08/24/17 11:15 09/23/17 08:44 08/25/17 05:49 3 ML Budesonide (Pulmicort Respules 0.5MG/ 2ML Neb Soln) 0.5 mg BIDR INH 08/24/17 20:00 09/23/17 19:59 08/25/17 06:56 0.5 MG Methylprednisolone Sodium Succinate 40 mg/Syringe 0.64 ml @ 1.5 mls/min Q6 IV 08/24/17 18:00 09/22/17 20:59 08/25/17 11:48 1.5 MLS/MIN Naproxen (Naprosyn Tab) 375 mg BID PRN PO 08/25/17 06:00 09/24/17 05:59 Insulin Glargine (Lantus Solostar Pen) 16 units BID SC 08/24/17 21:00 09/22/17 20:59 08/25/17 07:48 16 UNITS Lidocaine (Lidoderm Patch 5%) 1 patch QAM TD 08/26/17 09:00 09/25/17 08:59 Miscellaneous (Remove Lidoderm Patch) 1 ea DAILY@21 N/A 08/25/17 21:00 09/24/17 20:59 Alprazolam (Xanax Tab) 0.5 mg TID PO 08/25/17 21:00 09/24/17 20:59 I & O: 24-Hour Column 08/26/17 08:00 Intake Total 835 ml Output Total 900 ml Balance -65 ml Vital Signs: Date Time Temp Pulse Resp B/P (MAP) Pulse Ox O2 Delivery O2 Flow Rate FiO2 08/25/17 16:09 85 18 94 Room Air 08/25/17 15:18 36.7 93 20 138/83 (101) 93 Nasal Cannula 2.0 08/25/17 13:05 114 24 90 Nasal Cannula 2.0 08/25/17 11:09 88 18 94 Nasal Cannula 2.0 08/25/17 08:00 Nasal Cannula 2.0 08/25/17 07:31 36.7 87 20 162/85 (110) 95 Room Air 08/25/17 06:56 109 20 96 Nasal Cannula 7.0 08/25/17 05:49 79 20 96 Nasal Cannula 2.0 08/25/17 00:05 86 20 95 Nasal Cannula 2.0 08/25/17 00:00 Nasal Cannula 2.0 08/24/17 23:32 36.8 86 19 121/70 (87) 96 Room Air 08/24/17 18:56 89 20 94 Nasal Cannula 2.0 Laboratory Results: Last 24 Hours Test 08/24/17 19:52 08/25/17 07:02 08/25/17 07:35 08/25/17 11:06 Bedside Glucose 281 mg/dl 228 mg/dl 230 mg/dl White Blood Count 20.67 K/uL Red Blood Count 4.28 M/uL Hemoglobin 13.6 g/dL Hematocrit 40.1 % Mean Corpuscular Volume 93.7 fL Mean Corpuscular Hemoglobin 31.8 pg Mean Corpuscular Hemoglobin Concent 33.9 g/dl Platelet Count 221 K/uL Mean Platelet Volume 9.7 fL Neutrophils (%) (Auto) 87.5 % Lymphocytes (%) (Auto) 5.4 % Monocytes (%) (Auto) 5.9 % Eosinophils (%) (Auto) 0.0 % Basophils (%) (Auto) 0.0 % Neutrophils # (Auto) 18.08 K/uL Lymphocytes # (Auto) 1.12 K/uL Monocytes # (Auto) 1.21 K/uL Eosinophils # (Auto) 0.00 K/uL Basophils # (Auto) 0.01 K/uL RDW Standard Deviation 47.2 fL RDW Coefficient of Variation 13.8 % Immature Granulocyte % (Auto) 1.2 % Immature Granulocyte # (Auto) 0.25 K/uL Sodium Level 137 mmol/L Potassium Level 4.0 mmol/L Chloride Level 103 mmol/L Carbon Dioxide Level 27 mmol/L Anion Gap 7.0 mmol/L Blood Urea Nitrogen 18 mg/dl Creatinine 0.94 mg/dl Est Creatinine Clear Calc Drug Dose 124.9 ml/min Estimated GFR () 111.5 Estimated GFR (Non- 96.2 BUN/Creatinine Ratio 19.3 Random Glucose 243 mg/dl Calcium Level 8.7 mg/dl Test 08/25/17 16:17 Bedside Glucose 179 mg/dl
[2017-08-25] MEDS: ALPRAZOLAM 0.5 MG TAB PO SCH (21:16)
[2017-08-26] VITALS (12 sets, daily range): BP systolic 130–175; BP diastolic 74–90; PULSE 83–98; TEMP 36.5–37.9; O2SAT 92–97
[2017-08-26] MEDS: ACETAMINOPHEN 325 MG TAB PO PRN (02:10)
[2017-08-26] MEDS: METHYLPREDNISOLONE IV 40 MG in SYRINGE 0 ML IV SCH ×4 (05:12→23:34)
[2017-08-26] MEDS: ALBUT/IPRATROP 3MG/0.5MG NEB 3 ML VIAL INH PRN (05:29)
--- NOTE | 2017-08-26 06:53 | Family Medicine Progress Note ---
Progress Note Date of Service Aug 26, 2017. Subjective Pt evaluation today including: conversation w/ patient, physical exam, chart review, conversation w/ parts consultant, review of inpatient medication list Pain: chest pain bilaterally when taking a deep breath in PO Intake: good Voiding: no voiding problems Shortness of breath comes and goes, resolved with neb treatments Has a mild dry cough Has chest pain bilaterally in lower ribs when taking in a deep breath No haemoptysis and no fevers or chills Constitutional: No fever, No chills Respiratory: + cough, + wheezing, + shortness of breath, No sputum, No hemoptysis Cardiovascular: + chest pain, No edema, No palpitations Abdomen: No pain, No nausea, No vomiting, No diarrhea, No GI bleeding Musculoskeletal: No joint pain, No muscle pain, No calf pain Skin: No rash, No itch Medications Current Inpatient Medications Medications (Trade) Dose Ordered Sig/Elza Route Start Time Stop Time Status Last Admin Dose Admin Acetaminophen (Tylenol Tab) 650 mg Q4H PRN PO 08/23/17 00:30 09/22/17 00:29 08/26/17 02:10 650 MG Al Hydrox/Mg Hydrox/Simethicone (Maalox Max Susp) 15 ml Q4H PRN PO 08/23/17 00:30 09/22/17 00:29 Magnesium Hydroxide (Milk Of Magnesia Susp) 30 ml Q12H PRN PO 08/23/17 00:30 09/22/17 00:29 Ondansetron HCl (Zofran Inj) 4 mg Q6H PRN IV 08/23/17 00:30 09/22/17 00:29 Nitroglycerin (Nitrostat Tab) 0.4 mg UD PRN SL 08/23/17 00:30 09/22/17 00:29 Polyethylene (Miralax Powder Packet) 17 gm DAILY PRN PO 08/23/17 00:30 09/22/17 00:29 Albuterol/ Ipratropium (Duoneb) 3 ml QIDR INH 08/23/17 08:00 09/22/17 07:59 08/26/17 14:53 3 ML Alendronate Sodium (Fosamax Tab) 10 mg QAM PO 08/23/17 09:00 09/22/17 08:59 08/26/17 08:01 10 MG Calcium Carbonate (Tums Chew Tab) 1,000 mg BID PO 08/23/17 09:00 09/22/17 08:59 08/26/17 07:59 1,000 MG Carbamazepine (Tegretol Tab) 200 mg BID PO 08/23/17 09:00 09/22/17 08:59 08/26/17 07:59 200 MG Salmeterol Xinafoate/ Fluticasone (Advair Diskus 500/50 Inh) 1 puff BID INH 08/23/17 09:00 09/22/17 08:59 08/26/17 07:58 1 PUFF Fluticasone Propionate (Flonase Nasal [place]) 2 sprays BID NA 08/23/17 09:00 09/22/17 08:59 08/26/17 07:58 2 SPRAYS Codeine Phosphate/ Guaifenesin (Robitussin-AC Sugar Free Syrup) 10 ml QID PO 08/23/17 09:00 09/22/17 08:59 08/26/17 13:18 10 ML Montelukast Sodium (Singulair Tab) 10 mg QAM PO 08/23/17 09:00 09/22/17 08:59 08/26/17 08:02 10 MG Multivitamins (Multivitamin Tab) 1 tab DAILY PO 08/23/17 09:00 09/22/17 08:59 08/26/17 08:01 1 TAB Sodium Chloride ([place] Nasal [place]) 2 sprays QID PRN ELINA 08/23/17 01:45 09/22/17 01:44 Terbutaline Sulfate (Brethine Tab) 2.5 mg BID PO 08/23/17 09:00 09/22/17 08:59 08/26/17 08:00 2.5 MG Insulin Aspart (novoLOG ASPART) SLIDING SCALE G... ACHS SC 08/23/17 07:00 09/22/17 06:59 08/26/17 11:57 21 UNITS Diphenhydramine HCl (Benadryl Inj) 25 mg Q4H PRN IV 08/23/17 04:30 09/22/17 04:29 08/23/17 09:29 25 MG Azithromycin (Zithromax Tab) 250 mg QAM PO 08/24/17 09:00 08/31/17 08:59 08/26/17 08:00 250 MG Pantoprazole Sodium (Protonix Tab) 40 mg BID PO 08/23/17 21:00 08/27/17 20:59 08/26/17 08:02 40 MG Budesonide (Pulmicort Respules 0.5MG/ 2ML Neb Soln) 0.5 mg BIDR INH 08/24/17 20:00 09/23/17 19:59 08/26/17 06:55 0.5 MG Methylprednisolone Sodium Succinate 40 mg/Syringe 0.64 ml @ 1.5 mls/min Q6 IV 08/24/17 18:00 09/22/17 20:59 08/26/17 11:55 1.5 MLS/MIN Naproxen (Naprosyn Tab) 375 mg BID PRN PO 08/25/17 06:00 09/24/17 05:59 Insulin Glargine (Lantus Solostar Pen) 16 units BID SC 08/24/17 21:00 09/22/17 20:59 08/26/17 08:15 16 UNITS Lidocaine (Lidoderm Patch 5%) 1 patch QAM TD 08/26/17 09:00 09/25/17 08:59 08/26/17 08:03 1 PATCH Miscellaneous (Remove Lidoderm Patch) 1 ea DAILY@21 N/A 08/25/17 21:00 09/24/17 20:59 08/25/17 21:23 1 EA Alprazolam (Xanax Tab) 0.5 mg TID PO 08/25/17 21:00 09/24/17 20:59 08/26/17 13:18 0.5 MG Albuterol (Ventolin Hfa Inhaler) 2 puffs Q2HWA PRN INH 08/26/17 14:45 09/25/17 14:44 Objective Vital Signs Date Time Temp Pulse Resp B/P (MAP) Pulse Ox O2 Delivery O2 Flow Rate FiO2 08/26/17 15:55 36.7 89 20 175/75 (108) 94 Room Air 130/80 (97) 08/26/17 14:53 94 16 94 Room Air 08/26/17 11:31 89 18 96 Nasal Cannula 1.0 08/26/17 08:00 Room Air 08/26/17 07:55 37.9 08/26/17 07:54 36.5 90 20 172/90 (117) 93 Room Air 08/26/17 06:55 89 18 93 Nasal Cannula 3.0 08/26/17 05:30 91 18 94 Room Air 08/26/17 00:04 36.5 83 19 144/80 (101) 97 Room Air 08/26/17 00:00 Nasal Cannula 2.0 08/25/17 23:14 88 18 93 Room Air 08/25/17 19:43 88 18 93 Room Air Physical Exam General Appearance: WD/WN, no apparent distress, + pertinent finding ( cushinoid appearance) ENT: hearing grossly normal, pharynx normal Neck: supple, no JVD, trachea midline Respiratory/Chest: chest non-tender, no respiratory distress, no accessory muscle use, + pertinent finding (good air entry bilaterally, mild expiratory wheeze) Cardiovascular: regular rate, rhythm, no edema, no murmur Abdomen: normal bowel sounds, non tender, soft Extremities: normal range of motion, non-tender, no pedal edema Neurologic/Psychiatric: alert, normal mood/affect, oriented x 3 Skin: normal color, warm/dry, no rash Laboratory Results Results Past 24 Hours Test 08/25/17 19:53 08/26/17 07:41 08/26/17 11:02 08/26/17 14:21 Range/Units Bedside Glucose 140 193 239 70-99 mg/dl Assessment and Plan 46 yo m suffering from an acute asthma exacerbation leading to acute hypoxic respiratory failure Acute hypoxic resp failure secondary to ?viral vs bacterial infection (PNA)? in the presence of severe asthma - Pulmonary consulted - patient follows with . - Methylprednisone 40mg changed to q6 per Dr. Arnold - Azithromycin PO day #3 for pneumonitis - Duoneb scheduled, and continue home meds: Spiriva, Advair, terbutaline and Singulair - incentive matty and vibration vest advisable - ordered pulmicort respules nebulized per suggestion of resp - suspect palpable rib pain 2/2 work of breathing, pain control on board tylenol and naproxyn, following. Added lidocaine patch - xanax 0.5mg tid for vocal cord dysfunction DMII - Metformin held - Lantus 10units BID + ISS (with tight parameters) - Check BG ac/hs Seizure disorder - Continue carbamazepine GERD - Continue Protonix VTE ppx SCD and heparin Continued [facility] stay due to: multiple IV medications needed Discharge planning: other History Resident Physician Supervision Note: I was present with Dr. Tony during the history and exam. I discussed the case with the resident and agree with the findings and plan as documented in the note. Any exceptions or clarifications are listed here. Pt reports persistent waxing and waning of shortness of breath accompanied by wheezing which is presently waxing, though was just woken from sleep. Mild nonproductive cough with resultant aching lower chest pain. General Appearance: WD/WN, no apparent distress Respiratory: chest non-tender, no respiratory distress, other (good aeration and movement bilaterally without wheeze in lungs, apparent upper/laryngeal wheeze which reduces with open expiration) Cardiovascular: normal peripheral pulses, regular rate, rhythm, no edema, no murmur Gastrointestinal: normal bowel sounds, non tender, soft, no organomegaly Assessment/Plan 46 y/o male h/o asthma on prednisone, DMII presents with acute asthma exacerbation Severe asthma exacerbation in the setting of underlying infection - pulmonology consulted and input appreciated - continue methylprednisolone, azithromycin, duonebs, pulmicort DMII - continue lantus, ISS Sz d/o - continue carbamazepine GERD - PPI therapy VTE PPX - heparin
[2017-08-26] MEDS: BUDESONIDE 0.5 MG/2 ML VIAL (PULMICORT) INH SCH ×2 (06:55→19:42)
[2017-08-26] MEDS: ALBUT/IPRATROP 3MG/0.5MG NEB 3 ML VIAL INH SCH ×4 (06:55→19:42)
[2017-08-26] MEDS: FLUTICASONE PROPIONATE NA SPR 16 GM BTL SCH ×2 (07:58→21:21)
[2017-08-26] MEDS: FLUTICASONE/SALMETEROL (ADVAIR) 500/50 INH 14 PUFF INH SCH ×2 (07:58→21:21)
[2017-08-26] MEDS: CARBAMAZEPINE 200 MG TAB PO SCH ×2 (07:59→21:22)
[2017-08-26] MEDS: CALCIUM CARBONATE 500 MG CHEWABLE PO SCH ×2 (07:59→21:23)
[2017-08-26] MEDS: AZITHROMYCIN 250 MG TAB PO SCH (08:00)
[2017-08-26] MEDS: TERBUTALINE SULFATE 5 MG TAB PO SCH ×2 (08:00→21:22)
[2017-08-26] MEDS: MULTIVITAMIN TAB PO SCH (08:01)
[2017-08-26] MEDS: ALENDRONATE SODIUM 10 MG TAB PO SCH (08:01)
[2017-08-26] MEDS: PANTOprazole SOD 40 MG TAB PO SCH ×2 (08:02→21:22)
[2017-08-26] MEDS: MONTELUKAST SOD 10 MG TAB PO SCH (08:02)
[2017-08-26] MEDS: LIDODERM (LIDOCAINE) PATCH 5% TD SCH (08:03)
[2017-08-26] MEDS: GUAIFENESIN/CODEINE 200MG/20MG 10ML UDC PO SCH ×4 (08:07→21:34)
[2017-08-26] MEDS: ALPRAZOLAM 0.5 MG TAB PO SCH ×3 (08:07→21:20)
[2017-08-26] MEDS: INSULIN GLARGINE SOLOSTAR 100 UNITS/ML 3 ML PEN SC SCH ×2 (08:15→21:34)
[2017-08-26] MEDS: INSULIN ASPART 100 UNITS/ML 3 ML PEN SC SCH ×4 (08:15→21:33)
--- NOTE | 2017-08-26 16:56 | Pulmonology Progress Note ---
Pulmonary Progress Note Date of Service Aug 26, 2017. Attending Dr. Caraballo Subjective Continues to report dyspnea with minimal exertion. Bilateral thorax discomfort in flanks and lower chest. Fevers last night. No dysphagia. Objective 46-yo male transferred from [facility] with acute exacerbation asthma with hypoxia. Prior records were reviewed. PMHx includes: severe persistent asthma on chronic high-dose steroid s/p broncho-thermoplasty x 3 (summer), h.o seizures, steroid induced diabetes, and GERD. Patient transferred to [facility] 08/23/17 with hypoxic exacerbation of asthma. He was treated with escalation of steroids, inhaled bronchodilators, pulmonary toilet/ VEST, and broad-spectrum antibiotics. Alprazolam initiated for vocal cord dysfunction. ABG 08/23/17: 7.43/38/79-4LPM/25. ESR: 23 CT chest 08/23/17: subsegmental bibasilar consolidative opacities. Patchy multifocal bronchovascular GG opacities in JANET and lingular as well as LLL and RUL. Subpleural bleb and bullae formation. No honeycombing. Today: - 96%: RA -1LPM - Tmax: 37.9, hypertensive this AM. - WBC: 20.67, Hgb/Hct/Plts: 13.6/40.1/221 - IgE: pending - BID budesonide, methylprednisolone 40 Q6, azithromycin, Advair 500/50, QID duo -nebs Physical Exam: Constitutional: WDWN male sitting in hospital bed taking nebulizer HEENT: + facial symmetry. EOMi, PERRLA, no injection Respiratory: Non-labored respirations. Bilateral wheeze and rhonchi. No audible stridor CV: RRR, no MRT. Warm and perfused peripherally MSK/Extremities: moving and developed symmetrically. No peripheral edema. Neurologic: A&O. Good data recall. Appropriate affect. Assessment & Plan 46-yo male admitted with hypoxic exacerbation of severe persistent asthma: - Continue bronchodilators and nebulized BID Budesonide, consider a trial of Brovana in place of Advair if not improving - Trial increase methylprednisolone 60mg Q8 - IgE: pending - Continue VEST and Flutter for mucoid impaction on CT - will discuss with Dr. Fitzpatrick any additional interventions - A1AT and magnesium level Discussed with Dr. Caraballo Data Medications: Current Inpatient Medications Medications (Trade) Dose Ordered Sig/Elza Route Start Time Stop Time Status Last Admin Dose Admin Acetaminophen (Tylenol Tab) 650 mg Q4H PRN PO 08/23/17 00:30 09/22/17 00:29 08/26/17 02:10 650 MG Al Hydrox/Mg Hydrox/Simethicone (Maalox Max Susp) 15 ml Q4H PRN PO 08/23/17 00:30 09/22/17 00:29 Magnesium Hydroxide (Milk Of Magnesia Susp) 30 ml Q12H PRN PO 08/23/17 00:30 09/22/17 00:29 Ondansetron HCl (Zofran Inj) 4 mg Q6H PRN IV 08/23/17 00:30 09/22/17 00:29 Nitroglycerin (Nitrostat Tab) 0.4 mg UD PRN SL 08/23/17 00:30 09/22/17 00:29 Polyethylene (Miralax Powder Packet) 17 gm DAILY PRN PO 08/23/17 00:30 09/22/17 00:29 Albuterol/ Ipratropium (Duoneb) 3 ml QIDR INH 08/23/17 08:00 09/22/17 07:59 08/26/17 11:31 3 ML Alendronate Sodium (Fosamax Tab) 10 mg QAM PO 08/23/17 09:00 09/22/17 08:59 08/26/17 08:01 10 MG Calcium Carbonate (Tums Chew Tab) 1,000 mg BID PO 08/23/17 09:00 09/22/17 08:59 08/26/17 07:59 1,000 MG Carbamazepine (Tegretol Tab) 200 mg BID PO 08/23/17 09:00 09/22/17 08:59 08/26/17 07:59 200 MG Salmeterol Xinafoate/ Fluticasone (Advair Diskus 500/50 Inh) 1 puff BID INH 08/23/17 09:00 09/22/17 08:59 08/26/17 07:58 1 PUFF Fluticasone Propionate (Flonase Nasal [place]) 2 sprays BID NA 08/23/17 09:00 09/22/17 08:59 08/26/17 07:58 2 SPRAYS Codeine Phosphate/ Guaifenesin (Robitussin-AC Sugar Free Syrup) 10 ml QID PO 08/23/17 09:00 09/22/17 08:59 08/26/17 13:18 10 ML Montelukast Sodium (Singulair Tab) 10 mg QAM PO 08/23/17 09:00 09/22/17 08:59 08/26/17 08:02 10 MG Multivitamins (Multivitamin Tab) 1 tab DAILY PO 08/23/17 09:00 09/22/17 08:59 08/26/17 08:01 1 TAB Sodium Chloride ([place] Nasal [place]) 2 sprays QID PRN ELINA 08/23/17 01:45 09/22/17 01:44 Terbutaline Sulfate (Brethine Tab) 2.5 mg BID PO 08/23/17 09:00 09/22/17 08:59 08/26/17 08:00 2.5 MG Insulin Aspart (novoLOG ASPART) SLIDING SCALE G... ACHS SC 08/23/17 07:00 09/22/17 06:59 08/26/17 11:57 21 UNITS Diphenhydramine HCl (Benadryl Inj) 25 mg Q4H PRN IV 08/23/17 04:30 09/22/17 04:29 08/23/17 09:29 25 MG Azithromycin (Zithromax Tab) 250 mg QAM PO 08/24/17 09:00 08/31/17 08:59 08/26/17 08:00 250 MG Pantoprazole Sodium (Protonix Tab) 40 mg BID PO 08/23/17 21:00 08/27/17 20:59 08/26/17 08:02 40 MG Albuterol/ Ipratropium (Duoneb) 3 ml Q2HWA PRN INH 08/24/17 11:15 09/23/17 08:44 08/26/17 05:29 3 ML Budesonide (Pulmicort Respules 0.5MG/ 2ML Neb Soln) 0.5 mg BIDR INH 08/24/17 20:00 09/23/17 19:59 08/26/17 06:55 0.5 MG Methylprednisolone Sodium Succinate 40 mg/Syringe 0.64 ml @ 1.5 mls/min Q6 IV 08/24/17 18:00 09/22/17 20:59 08/26/17 11:55 1.5 MLS/MIN Naproxen (Naprosyn Tab) 375 mg BID PRN PO 08/25/17 06:00 09/24/17 05:59 Insulin Glargine (Lantus Solostar Pen) 16 units BID SC 08/24/17 21:00 09/22/17 20:59 08/26/17 08:15 16 UNITS Lidocaine (Lidoderm Patch 5%) 1 patch QAM TD 08/26/17 09:00 09/25/17 08:59 08/26/17 08:03 1 PATCH Miscellaneous (Remove Lidoderm Patch) 1 ea DAILY@21 N/A 08/25/17 21:00 09/24/17 20:59 08/25/17 21:23 1 EA Alprazolam (Xanax Tab) 0.5 mg TID PO 08/25/17 21:00 09/24/17 20:59 08/26/17 13:18 0.5 MG I & O: 24-Hour Column 08/27/17 07:59 Intake Total 480 ml Balance 480 ml Vital Signs: Date Time Temp Pulse Resp B/P (MAP) Pulse Ox O2 Delivery O2 Flow Rate FiO2 08/26/17 11:31 89 18 96 Nasal Cannula 1.0 08/26/17 08:00 Room Air 08/26/17 07:55 37.9 08/26/17 07:54 36.5 90 20 172/90 (117) 93 Room Air 08/26/17 06:55 89 18 93 Nasal Cannula 3.0 08/26/17 05:30 91 18 94 Room Air 08/26/17 00:04 36.5 83 19 144/80 (101) 97 Room Air 08/26/17 00:00 Nasal Cannula 2.0 08/25/17 23:14 88 18 93 Room Air 08/25/17 19:43 88 18 93 Room Air 08/25/17 16:20 Room Air 2.0 08/25/17 16:09 85 18 94 Room Air 08/25/17 15:18 36.7 93 20 138/83 (101) 93 Nasal Cannula 2.0 Laboratory Results: Last 24 Hours Test 08/25/17 16:17 1/28/18 19:53 08/26/17 07:41 08/26/17 11:02 Bedside Glucose 179 mg/dl 140 mg/dl 193 mg/dl 239 mg/dl
[2017-08-26] MEDS: ALBUTEROL HFA 8 GM INHALER INH PRN (23:22)
[2017-08-27] VITALS (8 sets, daily range): BP systolic 125–138; BP diastolic 70–80; PULSE 72–90; TEMP 36.5–36.8; O2SAT 92–100
[2017-08-27] MEDS: METHYLPREDNISOLONE IV 40 MG in SYRINGE 0 ML IV SCH ×2 (05:56→12:56)
[2017-08-27] MEDS: ALBUTEROL HFA 8 GM INHALER INH PRN (05:56)
[2017-08-27] MEDS: BUDESONIDE 0.5 MG/2 ML VIAL (PULMICORT) INH SCH ×2 (07:00→19:35)
[2017-08-27] MEDS: ALBUT/IPRATROP 3MG/0.5MG NEB 3 ML VIAL INH SCH ×4 (07:00→19:35)
[2017-08-27 07:12] LABS: HEMATOCRIT 41.1 % (42-52); HEMOGLOBIN 13.8 g/dL (14.0-18.0); MEAN CELL VOLUME 94.3 fL (80-100); MEAN CORPUSCULAR HEMOGLOBIN 31.7 pg (25-34); MEAN CORPUSCULAR HGB CONC 33.6 g/dl (32-36); MEAN PLATELET VOLUME 9.2 fL (7.4-10.4); NUCLEATED RED BLOOD CELL ABS 0.04 K/uL (0-0); PLATELET COUNT 230 K/uL (130-400); RED CELL DISTRIBUTION WIDTH SD 47.9 fL (36.4-46.3)
[2017-08-27] MEDS: FLUTICASONE PROPIONATE NA SPR 16 GM BTL SCH ×2 (07:39→21:09)
[2017-08-27] MEDS: FLUTICASONE/SALMETEROL (ADVAIR) 500/50 INH 14 PUFF INH SCH ×2 (07:39→21:09)
[2017-08-27] MEDS: CALCIUM CARBONATE 500 MG CHEWABLE PO SCH ×2 (07:39→21:10)
[2017-08-27 07:40] LABS: CALCIUM 8.7 mg/dl (8.5-10.1); CREATININE 0.89 mg/dl (0.60-1.40); POTASSIUM 4.2 mmol/L (3.5-5.1)
[2017-08-27] MEDS: TERBUTALINE SULFATE 5 MG TAB PO SCH ×2 (07:40→21:11)
[2017-08-27] MEDS: MULTIVITAMIN TAB PO SCH (07:41)
[2017-08-27] MEDS: CARBAMAZEPINE 200 MG TAB PO SCH ×2 (07:41→21:10)
[2017-08-27] MEDS: ALENDRONATE SODIUM 10 MG TAB PO SCH (07:41)
[2017-08-27] MEDS: MONTELUKAST SOD 10 MG TAB PO SCH (07:41)
[2017-08-27] MEDS: AZITHROMYCIN 250 MG TAB PO SCH (07:41)
[2017-08-27] MEDS: PANTOprazole SOD 40 MG TAB PO SCH (07:41)
[2017-08-27] MEDS: LIDODERM (LIDOCAINE) PATCH 5% TD SCH (07:43)
[2017-08-27] MEDS: INSULIN ASPART 100 UNITS/ML 3 ML PEN SC SCH ×4 (07:58→21:19)
[2017-08-27] MEDS: INSULIN GLARGINE SOLOSTAR 100 UNITS/ML 3 ML PEN SC SCH ×2 (07:59→21:19)
[2017-08-27] MEDS: GUAIFENESIN/CODEINE 200MG/20MG 10ML UDC PO SCH ×4 (08:39→21:08)
[2017-08-27] MEDS: ALPRAZOLAM 0.5 MG TAB PO SCH ×2 (08:39→14:20)
--- NOTE | 2017-08-27 15:06 | Family Medicine Progress Note ---
Progress Note Date of Service Aug 27, 2017. Subjective Pt evaluation today including: conversation w/ patient, physical exam, chart review, conversation w/ health consultant, review of inpatient medication list Pain: mild chest pain with inspiration PO Intake: good Voiding: no voiding problems Patient notes that he had trouble breathing last night and did not have orders for his neb treatments PRN but was given an albuterol inhaler He continues to have shortness of breath at rest and is worse with exertion He notes that he has a dry cough with pain with deep inspiration and has had fevers and chills overnight He has been very fatigued overnight Constitutional: + fever, + chills Respiratory: + cough, + wheezing, + shortness of breath, + dyspnea on exertion, No sputum, No hemoptysis Cardiovascular: + chest pain, No edema, No palpitations Abdomen: No pain, No nausea, No vomiting, No diarrhea Musculoskeletal: No joint pain, No muscle pain, No calf pain Male : No dysuria, No urinary frequency, No hematuria Medications Current Inpatient Medications Medications (Trade) Dose Ordered Sig/Elza Route Start Time Stop Time Status Last Admin Dose Admin Acetaminophen (Tylenol Tab) 650 mg Q4H PRN PO 08/23/17 00:30 09/22/17 00:29 08/26/17 02:10 650 MG Al Hydrox/Mg Hydrox/Simethicone (Maalox Max Susp) 15 ml Q4H PRN PO 08/23/17 00:30 09/22/17 00:29 Magnesium Hydroxide (Milk Of Magnesia Susp) 30 ml Q12H PRN PO 08/23/17 00:30 09/22/17 00:29 Ondansetron HCl (Zofran Inj) 4 mg Q6H PRN IV 08/23/17 00:30 09/22/17 00:29 Nitroglycerin (Nitrostat Tab) 0.4 mg UD PRN SL 08/23/17 00:30 09/22/17 00:29 Polyethylene (Miralax Powder Packet) 17 gm DAILY PRN PO 08/23/17 00:30 09/22/17 00:29 Albuterol/ Ipratropium (Duoneb) 3 ml QIDR INH 08/23/17 08:00 09/22/17 07:59 08/27/17 11:04 3 ML Alendronate Sodium (Fosamax Tab) 10 mg QAM PO 08/23/17 09:00 09/22/17 08:59 08/27/17 07:41 10 MG Calcium Carbonate (Tums Chew Tab) 1,000 mg BID PO 08/23/17 09:00 09/22/17 08:59 08/27/17 07:39 1,000 MG Carbamazepine (Tegretol Tab) 200 mg BID PO 08/23/17 09:00 09/22/17 08:59 08/27/17 07:41 200 MG Salmeterol Xinafoate/ Fluticasone (Advair Diskus 500/50 Inh) 1 puff BID INH 08/23/17 09:00 09/22/17 08:59 08/27/17 07:39 1 PUFF Fluticasone Propionate (Flonase Nasal [place]) 2 sprays BID NA 08/23/17 09:00 09/22/17 08:59 08/27/17 07:39 2 SPRAYS Codeine Phosphate/ Guaifenesin (Robitussin-AC Sugar Free Syrup) 10 ml QID PO 08/23/17 09:00 09/22/17 08:59 08/27/17 12:56 10 ML Montelukast Sodium (Singulair Tab) 10 mg QAM PO 08/23/17 09:00 09/22/17 08:59 08/27/17 07:41 10 MG Multivitamins (Multivitamin Tab) 1 tab DAILY PO 08/23/17 09:00 09/22/17 08:59 08/27/17 07:41 1 TAB Sodium Chloride ([place] Nasal [place]) 2 sprays QID PRN ELINA 08/23/17 01:45 09/22/17 01:44 Terbutaline Sulfate (Brethine Tab) 2.5 mg BID PO 08/23/17 09:00 09/22/17 08:59 08/27/17 07:40 2.5 MG Insulin Aspart (novoLOG ASPART) SLIDING SCALE G... ACHS SC 08/23/17 07:00 09/22/17 06:59 08/27/17 12:56 22 UNITS Diphenhydramine HCl (Benadryl Inj) 25 mg Q4H PRN IV 08/23/17 04:30 09/22/17 04:29 08/23/17 09:29 25 MG Azithromycin (Zithromax Tab) 250 mg QAM PO 08/24/17 09:00 08/31/17 08:59 08/27/17 07:41 250 MG Pantoprazole Sodium (Protonix Tab) 40 mg BID PO 08/23/17 21:00 08/27/17 20:59 08/27/17 07:41 40 MG Budesonide (Pulmicort Respules 0.5MG/ 2ML Neb Soln) 0.5 mg BIDR INH 08/24/17 20:00 09/23/17 19:59 08/27/17 07:00 0.5 MG Methylprednisolone Sodium Succinate 40 mg/Syringe 0.64 ml @ 1.5 mls/min Q6 IV 08/24/17 18:00 09/22/17 20:59 08/27/17 12:56 1.5 MLS/MIN Naproxen (Naprosyn Tab) 375 mg BID PRN PO 08/25/17 06:00 09/24/17 05:59 Insulin Glargine (Lantus Solostar Pen) 16 units BID SC 08/24/17 21:00 09/22/17 20:59 08/27/17 07:59 16 UNITS Lidocaine (Lidoderm Patch 5%) 1 patch QAM TD 08/26/17 09:00 09/25/17 08:59 08/27/17 07:43 1 PATCH Miscellaneous (Remove Lidoderm Patch) 1 ea DAILY@21 N/A 08/25/17 21:00 09/24/17 20:59 08/26/17 21:20 1 EA Alprazolam (Xanax Tab) 0.5 mg TID PO 08/25/17 21:00 09/24/17 20:59 08/27/17 14:20 0.5 MG Albuterol (Ventolin Hfa Inhaler) 2 puffs Q2HWA PRN INH 08/26/17 14:45 09/25/17 14:44 08/27/17 05:56 2 PUFFS Objective Vital Signs Date Time Temp Pulse Resp B/P (MAP) Pulse Ox O2 Delivery O2 Flow Rate FiO2 08/27/17 11:04 84 16 92 Nasal Cannula 1.0 08/27/17 08:00 Room Air 08/27/17 07:48 36.8 72 18 138/80 (99) 95 08/27/17 07:00 88 16 97 Nasal Cannula 4.0 08/27/17 00:00 Nasal Cannula 2.0 08/26/17 23:48 36.8 90 20 135/74 (94) 97 Nasal Cannula 2.0 08/26/17 19:44 98 16 93 Nasal Cannula 3.0 08/26/17 17:45 84 22 138/74 (95) 92 Room Air 08/26/17 16:02 94 Nasal Cannula 2.0 08/26/17 15:55 36.7 89 20 175/75 (108) 94 Room Air 130/80 (97) Physical Exam Notes: General Appearance: WD/WN, no apparent distress, + pertinent finding ( cushinoid appearance) ENT: hearing grossly normal, pharynx normal Neck: supple, no JVD, trachea midline Respiratory/Chest: chest non-tender, no respiratory distress, no accessory muscle use, + pertinent finding (good air entry bilaterally, mild expiratory wheeze) Cardiovascular: regular rate, rhythm, no edema, no murmur Abdomen: normal bowel sounds, non tender, soft Extremities: normal range of motion, non-tender, no pedal edema Neurologic/Psychiatric: alert, normal mood/affect, oriented x 3 Skin: normal color, warm/dry, no rash Laboratory Results Results Past 24 Hours Test 08/26/17 16:56 08/26/17 19:58 08/27/17 06:57 08/27/17 07:31 Range/Units Bedside Glucose 195 166 194 70-99 mg/dl White Blood Count 18.40 4.8-10.8 K/uL Red Blood Count 4.36 4.7-6.1 M/uL Hemoglobin 13.8 14.0-18.0 g/dL Hematocrit 41.1 42-52 % Mean Corpuscular Volume 94.3 80-100 fL Mean Corpuscular Hemoglobin 31.7 25-34 pg Mean Corpuscular Hemoglobin Concent 33.6 32-36 g/dl RDW Standard Deviation 47.9 36.4-46.3 fL RDW Coefficient of Variation 14.0 11.5-14.5 % Platelet Count 230 130-400 K/uL Mean Platelet Volume 9.2 7.4-10.4 fL Nucleated RBC Absolute Count (auto) 0.04 0-0 K/uL Nucleated Red Blood Cells % 0.2 % Erythrocyte Sedimentation Rate 33 0-14 mm/hr Sodium Level 138 136-145 mmol/L Potassium Level 4.2 3.5-5.1 mmol/L Chloride Level 104 98-107 mmol/L Carbon Dioxide Level 25 21-32 mmol/L Anion Gap 9.0 3-11 mmol/L Blood Urea Nitrogen 21 7-18 mg/dl Creatinine 0.89 0.60-1.40 mg/dl Est Creatinine Clear Calc Drug Dose 131.9 ml/min Estimated GFR () 118.0 Estimated GFR (Non- 101.8 BUN/Creatinine Ratio 23.7 10-20 Random Glucose 224 70-99 mg/dl Calcium Level 8.7 8.5-10.1 mg/dl Magnesium Level 2.2 1.8-2.4 mg/dl Test 08/27/17 11:14 Range/Units Bedside Glucose 251 70-99 mg/dl Assessment and Plan 46 yo m suffering from an acute asthma exacerbation Severe asthma exacerbation - Pulmonary consulted - patient follows with . - Methylprednisone 40mg changed to q6 per Dr. Arnold - Azithromycin PO day #4 for pneumonitis - Duoneb scheduled, and continue home meds: Spiriva, Advair, terbutaline and Singulair - incentive matty and vibration vest advisable - ordered pulmicort respules nebulized per suggestion of resp - suspect palpable rib pain 2/2 work of breathing, pain control on board tylenol and naproxyn, following. Added lidocaine patch - xanax 0.5mg tid for vocal cord dysfunction - need to discuss patient with Pulmonology, as patient continues to have worsening respiratory symptoms despite high dose prednisone therapy, ESR elevated today at 33 - IgE pending DMII - Metformin held - Lantus 16units BID + ISS (with tight parameters)--> sugars have been running high. Dr Washburn will be increasing insulin coverage to 25mg bid - Check BG ac/hs Seizure disorder - Continue carbamazepine GERD - Continue Protonix VTE ppx SCD and heparin Continued [facility] stay due to: other Discharge planning: other History Resident Physician Supervision Note: I was present with Dr. Tony during the history and exam. I discussed the case with the resident and agree with the findings and plan as documented in the note. Any exceptions or clarifications are listed here. Pt report persistent waxing and waning wheezing and chest tightness with persistent chest pain in the b/l lower chest which is stable. General Appearance: WD/WN, no apparent distress Neck: non-tender, full range of motion, supple Respiratory: chest non-tender, no respiratory distress, rhonchi, wheezing Cardiovascular: normal peripheral pulses, regular rate, rhythm, no edema, no murmur Gastrointestinal: normal bowel sounds, non tender, soft, no organomegaly Assessment/Plan 46 y/o male h/o asthma on prednisone, DMII presents with acute asthma exacerbation Severe asthma exacerbation in the setting of underlying infection - pulmonology consulted and input appreciated - increase methylprednisolone, cont azithromycin , duonebs, pulmicort DMII - continue lantus, ISS Sz d/o - continue carbamazepine GERD - PPI therapy VTE PPX - heparin
--- NOTE | 2017-08-27 16:06 | PULMONARY PROGRESS NOTE ---
DATE: 08/27/2017 TIME: 3:40 p.m. SUBJECTIVE: The patient continues to complain of wheezing and shortness of breath. He feels it is not much better than when he first came in. He is not coughing much. He is not expectorating any sputum. OBJECTIVE: GENERAL: The patient appeared comfortable at rest. VITAL SIGNS: Temperature is 36.5. He has not had any fevers since a T-max of 37.9 more than 24 hours ago. That was actually his only elevation of temperature since he came in. CARDIOVASCULAR: The patient appears slightly cushingoid. Heart rate was 75 per minute. The rhythm was regular. Blood pressure 125/75. PULMONARY: Wheezing was heard more on expiration than inspiration. The wheezes could be heard even when the patient was not taking deep breaths. Thus, I do not believe all of his wheezing is laryngeal in nature. Peak flow done by myself at the time of his evaluation was 290. He states that he has had many peak flows during the course of his lifetime. EXTREMITIES: Showed no cyanosis, clubbing or edema. LABORATORY AND IMAGING DATA: The CAT scan of his chest that was done during this hospital stay on the was reviewed. The patient does have some bullae mainly on the right side in the upper lung field area. He has what may be a lipoma at the edge of the right lung. Patchy infiltrates were noted in the left upper lobe area. These are relatively vague. There are some atelectatic areas in both lower lung zones. Sed rate today was 33. Prior sed rate was 23. Serum IgE is still pending. IMPRESSION: Status asthmaticus. COMMENTS AND RECOMMENDATIONS: I did ask the patient if he had ever been on Xolair. He said he had been, but I am not certain that he truly has. We are still awaiting an IgE level. He did recall taking shots once a week, but he did not know if they or allergy shots or not. Case was discussed with the house staff. I believe it is reasonable to give a transient increase in the steroids and see if he gets any added boost. I have no objection to stopping the alprazolam. I am doubtful it is helping very much. The patient obviously is a very difficult asthmatic to manage in light of a history of being on high dose prednisone at 70 mg for a few years. [facility]
[2017-08-27] MEDS ORDERED: ALBUTEROL HFA 8 GM INHALER INH PRN (19:23)
[2017-08-27] MEDS: METHYLPREDNISOLONE IV 60 MG in SYRINGE 0 ML IV SCH (21:08)
[2017-08-28] VITALS (9 sets, daily range): BP systolic 131–137; BP diastolic 69–74; PULSE 77–92; TEMP 36.5–36.7; O2SAT 93–97
[2017-08-28] MEDS: METHYLPREDNISOLONE IV 60 MG in SYRINGE 0 ML IV SCH ×3 (04:45→21:24)
[2017-08-28 06:45] LABS: HEMATOCRIT 42.9 % (42-52); HEMOGLOBIN 14.3 g/dL (14.0-18.0); MEAN CELL VOLUME 94.1 fL (80-100); MEAN CORPUSCULAR HEMOGLOBIN 31.4 pg (25-34); MEAN CORPUSCULAR HGB CONC 33.3 g/dl (32-36); MEAN PLATELET VOLUME 9.2 fL (7.4-10.4); NUCLEATED RED BLOOD CELL ABS 0.04 K/uL (0-0); PLATELET COUNT 246 K/uL (130-400); RED CELL DISTRIBUTION WIDTH SD 47.8 fL (36.4-46.3); WHITE BLOOD COUNT 18.75 K/uL (4.8-10.8)
[2017-08-28] MEDS: ALBUT/IPRATROP 3MG/0.5MG NEB 3 ML VIAL INH SCH ×4 (07:16→19:21)
[2017-08-28] MEDS: BUDESONIDE 0.5 MG/2 ML VIAL (PULMICORT) INH SCH ×2 (07:17→19:22)
[2017-08-28 07:19] LABS: CALCIUM 8.8 mg/dl (8.5-10.1); CREATININE 0.83 mg/dl (0.60-1.40); POTASSIUM 4.1 mmol/L (3.5-5.1)
[2017-08-28] MEDS: INSULIN ASPART 100 UNITS/ML 3 ML PEN SC SCH ×4 (07:52→21:26)
[2017-08-28] MEDS: INSULIN GLARGINE SOLOSTAR 100 UNITS/ML 3 ML PEN SC SCH ×2 (07:53→21:27)
[2017-08-28] MEDS: FLUTICASONE/SALMETEROL (ADVAIR) 500/50 INH 14 PUFF INH SCH ×2 (08:25→21:24)
[2017-08-28] MEDS: MONTELUKAST SOD 10 MG TAB PO SCH (08:25)
[2017-08-28] MEDS: CARBAMAZEPINE 200 MG TAB PO SCH ×2 (08:25→21:29)
[2017-08-28] MEDS: GUAIFENESIN/CODEINE 200MG/20MG 10ML UDC PO SCH ×4 (08:25→21:30)
[2017-08-28] MEDS: TERBUTALINE SULFATE 5 MG TAB PO SCH ×2 (08:25→21:27)
[2017-08-28] MEDS: MULTIVITAMIN TAB PO SCH (08:25)
[2017-08-28] MEDS: FLUTICASONE PROPIONATE NA SPR 16 GM BTL SCH ×2 (08:25→21:25)
[2017-08-28] MEDS: AZITHROMYCIN 250 MG TAB PO SCH (08:26)
[2017-08-28] MEDS: CALCIUM CARBONATE 500 MG CHEWABLE PO SCH ×2 (08:26→21:28)
[2017-08-28] MEDS: LIDODERM (LIDOCAINE) PATCH 5% TD SCH (08:26)
[2017-08-28] MEDS: ALENDRONATE SODIUM 10 MG TAB PO SCH (08:26)
--- NOTE | 2017-08-28 17:12 | Family Medicine Progress Note ---
Progress Note Date of Service Aug 28, 2017. Subjective Pt evaluation today including: conversation w/ patient, conversation w/ family , physical exam, chart review, conversation w/ office 365 consultant, review of inpatient medication list Pain: mild with deep inspiration PO Intake: good Voiding: no voiding problems Patient feeling much better today Less short of breath and breathing difficulty has subsided Would like to know when he will be able to go home Constitutional: No fever, No chills Respiratory: + cough, + wheezing, No sputum, No shortness of breath Cardiovascular: + chest pain, No edema, No palpitations Abdomen: No pain, No nausea, No vomiting, No diarrhea, No constipation Musculoskeletal: No joint pain, No calf pain Skin: No rash, No itch, No new/changing skin lesions Medications Current Inpatient Medications Medications (Trade) Dose Ordered Sig/Elza Route Start Time Stop Time Status Last Admin Dose Admin Acetaminophen (Tylenol Tab) 650 mg Q4H PRN PO 08/23/17 00:30 09/22/17 00:29 08/26/17 02:10 650 MG Al Hydrox/Mg Hydrox/Simethicone (Maalox Max Susp) 15 ml Q4H PRN PO 08/23/17 00:30 09/22/17 00:29 Magnesium Hydroxide (Milk Of Magnesia Susp) 30 ml Q12H PRN PO 08/23/17 00:30 09/22/17 00:29 Ondansetron HCl (Zofran Inj) 4 mg Q6H PRN IV 08/23/17 00:30 09/22/17 00:29 Nitroglycerin (Nitrostat Tab) 0.4 mg UD PRN SL 08/23/17 00:30 09/22/17 00:29 Polyethylene (Miralax Powder Packet) 17 gm DAILY PRN PO 08/23/17 00:30 09/22/17 00:29 Albuterol/ Ipratropium (Duoneb) 3 ml QIDR INH 08/23/17 08:00 09/22/17 07:59 08/28/17 15:24 3 ML Alendronate Sodium (Fosamax Tab) 10 mg QAM PO 08/23/17 09:00 09/22/17 08:59 08/28/17 08:26 10 MG Calcium Carbonate (Tums Chew Tab) 1,000 mg BID PO 08/23/17 09:00 09/22/17 08:59 08/28/17 08:26 1,000 MG Carbamazepine (Tegretol Tab) 200 mg BID PO 08/23/17 09:00 09/22/17 08:59 08/28/17 08:25 200 MG Salmeterol Xinafoate/ Fluticasone (Advair Diskus 500/50 Inh) 1 puff BID INH 08/23/17 09:00 09/22/17 08:59 08/28/17 08:25 1 PUFF Fluticasone Propionate (Flonase Nasal [place]) 2 sprays BID NA 08/23/17 09:00 09/22/17 08:59 08/28/17 08:25 2 SPRAYS Codeine Phosphate/ Guaifenesin (Robitussin-AC Sugar Free Syrup) 10 ml QID PO 08/23/17 09:00 09/22/17 08:59 08/28/17 12:47 10 ML Montelukast Sodium (Singulair Tab) 10 mg QAM PO 08/23/17 09:00 09/22/17 08:59 08/28/17 08:25 10 MG Multivitamins (Multivitamin Tab) 1 tab DAILY PO 08/23/17 09:00 09/22/17 08:59 08/28/17 08:25 1 TAB Sodium Chloride ([place] Nasal [place]) 2 sprays QID PRN ELINA 08/23/17 01:45 09/22/17 01:44 Terbutaline Sulfate (Brethine Tab) 2.5 mg BID PO 08/23/17 09:00 09/22/17 08:59 08/28/17 08:25 2.5 MG Insulin Aspart (novoLOG ASPART) SLIDING SCALE G... ACHS SC 08/23/17 07:00 09/22/17 06:59 08/28/17 11:52 16 UNITS Diphenhydramine HCl (Benadryl Inj) 25 mg Q4H PRN IV 08/23/17 04:30 09/22/17 04:29 08/23/17 09:29 25 MG Azithromycin (Zithromax Tab) 250 mg QAM PO 08/24/17 09:00 08/31/17 08:59 08/28/17 08:26 250 MG Budesonide (Pulmicort Respules 0.5MG/ 2ML Neb Soln) 0.5 mg BIDR INH 08/24/17 20:00 09/23/17 19:59 08/28/17 07:17 0.5 MG Naproxen (Naprosyn Tab) 375 mg BID PRN PO 08/25/17 06:00 09/24/17 05:59 Lidocaine (Lidoderm Patch 5%) 1 patch QAM TD 08/26/17 09:00 09/25/17 08:59 08/28/17 08:26 1 PATCH Miscellaneous (Remove Lidoderm Patch) 1 ea DAILY@21 N/A 08/25/17 21:00 09/24/17 20:59 08/27/17 21:08 1 EA Methylprednisolone Sodium Succinate 60 mg/Syringe 0.96 ml @ 1.5 mls/min Q8H IV 08/27/17 20:00 08/28/17 23:59 08/28/17 11:52 1.5 MLS/MIN Albuterol (Ventolin Hfa Inhaler) 2 puffs Q2H PRN INH 08/27/17 19:23 09/25/17 14:44 Insulin Glargine (Lantus Solostar Pen) 25 units BID SC 08/28/17 07:30 09/27/17 07:29 08/28/17 07:53 25 UNITS Prednisone (PredniSONE TAB) 70 mg DAILY PO 08/29/17 09:00 09/28/17 08:59 Objective Vital Signs Date Time Temp Pulse Resp B/P (MAP) Pulse Ox O2 Delivery O2 Flow Rate FiO2 08/28/17 15:38 36.6 87 18 137/72 (93) 93 Room Air 08/28/17 15:26 78 16 94 Room Air 08/28/17 11:19 92 16 93 Room Air 08/28/17 08:31 93 Room Air 08/28/17 08:31 97 Nasal Cannula 3.0 08/28/17 08:00 Room Air 08/28/17 07:18 85 16 96 Nasal Cannula 4.0 08/28/17 07:00 36.5 89 20 135/74 (94) 97 Nasal Cannula 3.0 08/28/17 00:10 Room Air 2.0 08/27/17 23:13 36.8 84 20 132/70 (90) 94 Room Air 08/27/17 19:35 90 16 96 Nasal Cannula 2.0 Physical Exam General Appearance: WD/WN, no apparent distress, + pertinent finding ( cushinoid appearance) ENT: pharynx normal Neck: supple, no JVD, no carotid bruits, trachea midline Respiratory/Chest: chest non-tender, no respiratory distress, no accessory muscle use, + pertinent finding (good air entry, when breathing out patient bearing down against closed glottis forcing wheeze, when asked to keep mouth open upon expiration lungs sounded clear) Cardiovascular: regular rate, rhythm, no murmur Abdomen: normal bowel sounds, non tender, soft Extremities: non-tender, no calf tenderness, normal capillary refill Laboratory Results Results Past 24 Hours Test 08/27/17 19:57 08/28/17 06:30 08/28/17 07:28 08/28/17 11:27 Range/Units Bedside Glucose 195 186 209 70-99 mg/dl White Blood Count 18.75 4.8-10.8 K/uL Red Blood Count 4.56 4.7-6.1 M/uL Hemoglobin 14.3 14.0-18.0 g/dL Hematocrit 42.9 42-52 % Mean Corpuscular Volume 94.1 80-100 fL Mean Corpuscular Hemoglobin 31.4 25-34 pg Mean Corpuscular Hemoglobin Concent 33.3 32-36 g/dl RDW Standard Deviation 47.8 36.4-46.3 fL RDW Coefficient of Variation 14.0 11.5-14.5 % Platelet Count 246 130-400 K/uL Mean Platelet Volume 9.2 7.4-10.4 fL Nucleated RBC Absolute Count (auto) 0.04 0-0 K/uL Nucleated Red Blood Cells % 0.2 % Erythrocyte Sedimentation Rate 38 0-14 mm/hr Sodium Level 136 136-145 mmol/L Potassium Level 4.1 3.5-5.1 mmol/L Chloride Level 100 98-107 mmol/L Carbon Dioxide Level 27 21-32 mmol/L Anion Gap 9.0 3-11 mmol/L Blood Urea Nitrogen 21 7-18 mg/dl Creatinine 0.83 0.60-1.40 mg/dl Est Creatinine Clear Calc Drug Dose 141.5 ml/min Estimated GFR () 121.4 Estimated GFR (Non- 104.8 BUN/Creatinine Ratio 24.9 10-20 Random Glucose 212 70-99 mg/dl Calcium Level 8.8 8.5-10.1 mg/dl Test 08/28/17 16:24 Range/Units Bedside Glucose 135 70-99 mg/dl Assessment and Plan 46 yo m suffering from an acute asthma exacerbation Severe asthma exacerbation - Pulmonary consulted - patient follows with . - Methylprednisone 60mg q8---> Dr Caraballo to switch patient to 70mg PO tomorrow and then to watch patient for 24 hours - Azithromycin PO day #5 for pneumonitis - Duoneb scheduled, and continue home meds: Spiriva, Advair, terbutaline and Singulair - incentive matty and vibration vest advisable - ordered pulmicort respules nebulized per suggestion of resp - suspect palpable rib pain 2/2 work of breathing, pain control on board tylenol and naproxyn, following. Added lidocaine patch - xanax stopped - IgE negative DMII - Metformin held - Lantus 25units BID + ISS (with tight parameters)--> sugars have been running high secondary to steroid use - Check BG ac/hs Seizure disorder - Continue carbamazepine GERD - Continue Protonix VTE ppx SCD and heparin Continued [facility] stay due to: multiple IV medications needed Discharge planning: other (assisted facility) History Resident Physician Supervision Note: I was present with Dr. Tony during the history and exam. I discussed the case with the resident and agree with the findings and plan as documented in the note. Any exceptions or clarifications are listed here. Pt reports gradual improvement in shortness of breath with persistently waxing and waning symptoms. That said, resting at 95% on room air during conversation without apparent discomfort when evaluated. Talked with KYRA Vinson @ [facility] - pt regimen includes tertbutiline singulair, spiriva, duonebs. No h/o Xolair per PCP. Negative RAST testing but still on steroids during same. Has outpatient pulm involvement at [facility]. General Appearance: WD/WN, no apparent distress Respiratory: no respiratory distress, decreased breath sounds, rhonchi, wheezing, other (stable TTP of lower chest without complaint) Cardiovascular: normal peripheral pulses, regular rate, rhythm, no murmur Gastrointestinal: normal bowel sounds, non tender, soft, no organomegaly Assessment/Plan 46 y/o male h/o asthma on prednisone, DMII presents with acute asthma exacerbation Severe asthma exacerbation in the setting of underlying infection - pulmonology consultation - seek to transition to PO steroids, cont azithromycin, duonebs, pulmicort. Discuss w/ pulm re: information from outpatient considering terbutaline. DMII - continue lantus, ISS Sz d/o - continue carbamazepine GERD - PPI therapy VTE PPX - heparin
--- NOTE | 2017-08-28 19:33 | PULMONARY PROGRESS NOTE ---
DATE: 08/28/2017 TIME: 04:25 p.m. SUBJECTIVE: The patient admits to feeling somewhat better today. He is not as tight. He has not had any acute episodes of shortness of breath. It remains to be seen if this was from the higher dose steroid or if it is just related to time has finally improved him. OBJECTIVE: GENERAL: The patient appeared comfortable. EARS, NOSE, AND THROAT: Exam is unremarkable. VITAL SIGNS: He is afebrile. Heart rate is 87. The rhythm is regular. Blood pressure 137/72. LUNGS: Auscultation of the lung abebe revealed mild wheezing. It was definitely less than yesterday. Saturation is 93% on room air. I did a peak flow. He did 360 today, which was substantially better than yesterday. LABORATORY DATA: White count today was still elevated at 18.75. It has been high during most of his hospital stay. It is unclear if that is all due to steroids or not. Electrolytes show sodium 136, potassium 4.1, chloride 100, and bicarbonate 27, BUN 21 with a creatinine of 0.83. IMPRESSIONS: 1. Status asthma. 2. Pneumonia, left upper lobe. COMMENTS AND RECOMMENDATIONS: The patient seems to be improved today. I am going to stop the methylprednisolone after his last dose today. I will change him to 70 mg of prednisone daily starting tomorrow. I would think if he stays well than over 24 hours, he could be discharged hopefully on August 30. The patient was frequently asking me when I thought he might be discharged.
[2017-08-29] VITALS (7 sets, daily range): BP systolic 128–136; BP diastolic 80–84; PULSE 79–103; TEMP 36.5–36.7; O2SAT 92–98
[2017-08-29] MEDS: ALBUT/IPRATROP 3MG/0.5MG NEB 3 ML VIAL INH SCH ×4 (05:30→15:16)
--- NOTE | 2017-08-29 06:49 | Family Medicine Progress Note ---
Progress Note Date of Service Aug 29, 2017.
[2017-08-29] MEDS: BUDESONIDE 0.5 MG/2 ML VIAL (PULMICORT) INH SCH (07:22)
[2017-08-29] MEDS: FLUTICASONE PROPIONATE NA SPR 16 GM BTL SCH (07:56)
[2017-08-29] MEDS: CALCIUM CARBONATE 500 MG CHEWABLE PO SCH (07:57)
[2017-08-29] MEDS: CARBAMAZEPINE 200 MG TAB PO SCH (07:57)
[2017-08-29] MEDS: MULTIVITAMIN TAB PO SCH (07:58)
[2017-08-29] MEDS: TERBUTALINE SULFATE 5 MG TAB PO SCH (07:58)
[2017-08-29] MEDS: MONTELUKAST SOD 10 MG TAB PO SCH (07:58)
[2017-08-29] MEDS: AZITHROMYCIN 250 MG TAB PO SCH (07:58)
[2017-08-29] MEDS: LIDODERM (LIDOCAINE) PATCH 5% TD SCH (07:59)
[2017-08-29] MEDS: ALENDRONATE SODIUM 10 MG TAB PO SCH (08:00)
[2017-08-29] MEDS: FLUTICASONE/SALMETEROL (ADVAIR) 500/50 INH 14 PUFF INH SCH (08:00)
[2017-08-29] MEDS: GUAIFENESIN/CODEINE 200MG/20MG 10ML UDC PO SCH ×3 (08:04→17:23)
[2017-08-29] MEDS: INSULIN GLARGINE SOLOSTAR 100 UNITS/ML 3 ML PEN SC SCH (08:54)
[2017-08-29] MEDS: INSULIN ASPART 100 UNITS/ML 3 ML PEN SC SCH ×3 (08:54→17:23)
[2017-08-29] MEDS ORDERED: PRD20 PO (15:16)
[2017-08-29] MEDS ORDERED: AZIT-57 PO (15:16)
--- NOTE | 2017-08-29 15:20 | Discharge Instructions ---
Discharge Instructions Date of Service Aug 29, 2017. Admission Reason for Admission: Acute Asthma Exacerbation Discharge Discharge Diagnosis / Problem: Asthma exacerbation Discharge Goals Goal(s): Decrease discomfort, Improve disease control, Therapeutic intervention , Prevent Disease Progression Activity Recommendations Activity Limitations: per Instructions/Follow-up section . Instructions / Follow-Up Instructions / Follow-Up You were diagnosed with an asthma exacerbation as well as pneumonia while in the hospital Asthma- Please continue to use your inhalers as directed. We will be sending you with a prescription for 70mg of prednisone daily. Please take this in order to prevent any further asthma exacerbations from occurring. Please follow up with your doctor at the correctional facility Pneumonia - you have one more day of antibiotic treatment in order to finish a 7 day course of antibiotics. Please take this as prescribed. Current Hospital Diet Patient's current hospital diet: AHA Diet (Heart Healthy), Low Sodium Diet (2gm Na), Diabetes Type 2 Diet Discharge Diet Recommended Diet: Regular Diet Pending Studies Studies pending at discharge: no Laboratory Results Hemoglobin A1c Test 08/23/17 00:46 Range/Units Estimated Average Glucose 192 mg/dl Hemoglobin A1c 8.3 H 4.5-5.6 % Medical Emergencies . Who to Call and When: Medical Emergencies: If at any time you feel your situation is an emergency, please call 911 immediately. . Non-Emergent Contact Non-Emergency issues call your: Primary Care Provider, [employer] Shift Manager . . "Provider Documentation" section prepared by Ferdinand Tony. . VTE Core Measure Inpt VTE Proph given/why not?: Unfractionated heparin SQ, SCD's
--- NOTE | 2017-08-29 16:25 | Discharge Summary ---
Discharge Summary Date of Service Aug 29, 2017. Discharge Summary Admission Date: Aug 23, 2017 at 00:02 Discharge Date: Aug 29, 2017 Principal Diagnosis: Asthma exacerbation Immunizations: Have You Had Influenza Vaccine: Unknown History of Tetanus Vaccine?: Unknown History of Pneumococcal: Unknown History of Hepatitis B Vaccine: Unknown Consultations: Pulmonology Medication Reconciliation New Medications: Azithromycin (Azithromycin) 250 Mg Tab 250 MG PO QAM for 1 Day, #1 TAB Prednisone (Prednisone) 20 Mg Tab 70 MG PO DAILY for 30 Days, #105 TAB Continued Medications: Albuterol Hfa (Ventolin Hfa) 200 Puffs/81497 Mcg Aers 2 PUFFS INH QID PRN for WHEEZING, #1 INHALER Alendronate Sodium (Alendronate Sodium) 70 Mg Tab 70 MG PO DAILY Bismuth Subsalicylate (Bismatrol) 1 Ml Susp 524 MG PO QID PRN for Dyspepsia Calcium Carbonate (Tums) 500 Mg Chew 2 TABS PO BID Carbamazepine (Tegretol) 200 Mg Tab 200 MG PO BID, TAB Ergocalciferol (Drisdol) 50,000 Unit Cap 1 CAP MWF Fluticasone Prop/Salmeterol (Advair Diskus 500/50 60 Dose) 1 Ea Aerp 1 PUFFS INH BID for 30 Days, #1 INHALER 5 Refills Fluticasone Propionate (Nasal) (Flonase Allergy Relief) 50 Mcg/Act Spr 2 SPRAY INH BID Guaifenesin/Codeine (Robitussin-Ac Syrup) Syrp 10 ML PO QID for 4 Days, #240 ML Insulin Human Regular (Humulin R) 100 Units/Ml Susp UD SLIDING SCALE UD Insulin Isophan/Regular (Humulin 70/30) Susp 3 UNITS SC BIDM, VIAL Ipratropium-Albuterol (Duoneb) 3 Ml Nebu 1 TREATMENT INH QID, INHA Metformin Hcl (Glucophage) 1,000 Mg Tab 1000 MG PO BID, TAB Montelukast Sodium (Singulair) 10 Mg Tab 10 MG PO QAM, TAB Multivitamin (Multivitamin) Tab 1 TAB PO DAILY, TAB Pantoprazole (Protonix) 40 Mg Tab 40 MG PO QAM, #30 TAB Saline ([place] Nasal Drops) 0.65 % Eduardo 2 DROPS ELINA QID PRN for DRYNESS, #50 ML Terbutaline Sulfate (Terbutaline Sulfate) 2.5 Mg Tab 2.5 MG PO BID Tiotropium [place] (Spiriva Handihaler) 30 Puff/540 Mcg Aerp 1 CAP INH QPM for 30 Days, CAP 3 Refills Discontinued Medications: Levofloxacin (Levofloxacin) 500 Mg Tab 500 MG DAILY Methylprednisolone Acetate (Depo-Medrol) 40 Mg/Ml Inj 40 MG IM DAILY Prednisone (Prednisone) 2.5 Mg Tab 7.5 MG PO DAILY, TAB Prednisone (Prednisone) 20 Mg Tab 60 MG PO DAILY, TAB Discharge Exam Patient says that he has had a bad night and that he has needed more breathing treatments. He is argumentative when the discussion of going back to the [facility] facility is discussed. He has not needed any supplemental oxygen overnight Review of Systems: Constitutional: No chills, No sweats Respiratory: + cough, + shortness of breath, + dyspnea at rest Cardiovascular: + chest pain, No palpitations Abdomen: No pain, No nausea, No vomiting, No diarrhea Musculoskeletal: No joint pain, No muscle pain, No calf pain Genitourinary - Female: No dysuria Genitourinary - Male: No hematuria, No dysuria Physical Exam: General Appearance: WD/WN, no apparent distress, + pertinent finding ( cushinoid appearance) ENT: hearing grossly normal, pharynx normal Neck: no adenopathy, no JVD, no carotid bruits Respiratory/Chest: chest non-tender, no respiratory distress, no accessory muscle use, + pertinent finding (clear to auscultation when expiring with a wide open mouth, if expiration on his own there is a laryngeal wheeze secondary to forced expiration against a clossed glottis) Cardiovascular: regular rate, rhythm, no edema, normal peripheral pulses Abdomen / GI: normal bowel sounds, non tender, soft Extremities: no calf tenderness, no pedal edema, normal range of motion Neurologic/Psychiatric: alert, normal mood/affect, oriented x 3 Hospital Course 46 yo m suffering from an acute asthma exacerbation Severe asthma exacerbation - Pulmonary consulted - patient follows with . - Methylprednisone 60mg q8 while in hospital ----> transitioned to 70mg PO steroids on discharge - Azithromycin PO day #6 for pneumonitis---> discharged with one more pill to finish 7 day course - Duoneb scheduled, and continue home meds: Spiriva, Advair, terbutaline and Singulair - incentive matty and vibration vest advisable - ordered pulmicort respules nebulized per suggestion of resp - suspect palpable rib pain 2/2 work of breathing, pain control on board tylenol and naproxyn - xanax stopped, used this in hospital for laryngeal spasm - IgE negative - Case was discussed with Dr. Caraballo who was agreeable to patient being discharged on 08/29/2017. Advised that it may worth trying xolair in the future. PA made aware. DMII - Metformin held while in hospital - Lantus 25units BID + ISS (with tight parameters)--> sugars have been running high secondary to steroid use. Back to regular lantus dose per correctional facility provider Seizure disorder - Continue carbamazepine GERD - Continue Protonix Total Time Spent: Less than 30 minutes This includes examination of the patient, discharge planning, medication reconciliation, and communication with other providers. Discharge Instructions Please refer to the electronic Patient Visit Report (Discharge Instructions) for additional information. Additional Copies To Griffin Ramos M.D.; [facility],[place] History Resident Physician Supervision Note: I was present with Dr. Tony during the history and exam. I discussed the case with the resident and agree with the findings and plan as documented in the note. Any exceptions or clarifications are listed here. Pt resting comfortably on room air. Though he had a rough night, he reports no respiratory distress, wheezing at rest, lightheadedness or fatigue. Chest pain is stable to mildly improved. Repeatedly states he would rather not go to [facility] prior to transitioning to [place], but confirmed w/ [facility] that [facility] transition is protocol. Discussed with supervising physician at [place] re: transition of care. General Appearance: WD/WN, no apparent distress Respiratory: no respiratory distress, decreased breath sounds, rhonchi, wheezing Cardiovascular: normal peripheral pulses, regular rate, rhythm, no murmur Gastrointestinal: normal bowel sounds, non tender, soft, no organomegaly Assessment/Plan 46 y/o male h/o asthma on prednisone, DMII presents with acute asthma exacerbation Severe asthma exacerbation in the setting of underlying infection - pulmonology consultation - stable on 70mg prednisone, complete azithromycin, duonebs, pulmicort, tertbutiline DMII - continue lantus at home regimen Sz d/o - continue carbamazepine GERD - PPI therapy Signed out to physician at [facility] re: transition of care. Dr. Caraballo and Nanette aware.
== END 2017-08-29 19:30 | disposition home or self-care (01) | DRG 194 ==
LOC: C.2T 08-23 00:02 → ENRESERV 08-23 18:55 → C.MS2W 08-23 19:37
PROVIDERS: ADMIT Hospitalist; ATTEND Family Medicine
DX: J18.9 Pneumonia, unspecified organism (principal); J45.52 Severe persistent asthma with status asthmaticus; T38.0X5A Adverse effect of glucocorticoids and synthetic analogues, initial encounter; E11.9 Type 2 diabetes mellitus without complications; F39 Unspecified mood [affective] disorder; G40.909 Epilepsy, unspecified, not intractable, without status epilepticus; K21.9 Gastro-esophageal reflux disease without esophagitis; Z79.84 Long term (current) use of oral hypoglycemic drugs; Z79.899 Other long term (current) drug therapy; Z79.4 Long term (current) use of insulin; Z79.52 Long term (current) use of systemic steroids